=== PATIENT | male | born 1965 | race Caucasian/White ===

== ENCOUNTER 2020-04-06 17:41 | Outpatient (REF) | payer MEDICARE, MEDICAID, SELFPAY ==
[2020-04-06 18:18] LABS: MANUAL DIFF FLAG NO
[2020-04-06 18:38] LABS: Basophils Percent Auto 0.3 % (0-2); Eosinophils Absolute Auto 0.1 X10*3/uL (0.0-0.4); Eosinophils Percent Auto 1.6 % (0-4); Hematocrit 43.2 % (42-52); Hemoglobin 15.1 g/dl (14.0-18.0); Imm Gran Abs Auto 0.02 X10*3/uL (0.00-0.03); Imm Gran Pct Auto 0.3 % (0.0-0.4); Lymphocytes Absolute Auto 2.5 X10*3/uL (1.2-4.9); Lymphocytes Percent Auto 37.4 % (20-40); Mean Corpuscular Hemoglobin 30.8 pg (27.0-33.0); Mean Corpuscular Volume 88.2 fL (80-98); Mean Platelet Volume 10.7 fL (9.4-12.4); Monocytes Absolute Auto 0.5 X10*3/uL (0.1-1.2); Monocytes Percent Auto 7.4 % (2-11); Neutrophils Absolute Auto 3.6 X10*3/uL (2.0-8.3); Platelet Count 214 X10*3/uL (160-400); Red Cell Distribution Width 13.4 % (11.0-16.0); White Blood Count 6.7 X10*3/uL (4.8-10.8)
[2020-04-06 18:47] LABS: Alanine Aminotransferase 84 U/L (0-40); Albumin Level 4.7 g/dL (3.5-5.0); Alkaline Phosphatase 92 U/L (39-117); Anion Gap 13 (12-20); Aspartate Amino Transferase 48 U/L (5-37); Bilirubin Total 0.6 mg/dL (0.0-1.0); Blood Urea Nitrogen 12 mg/dL (9-16); C Reactive Protein 0.24 mg/dL (< or = 0.50); Calcium 9.5 mg/dL (8.4-10.2); Carbon Dioxide 24 mmol/L (22-29); Chloride 105 mmol/L (96-108); Estimated Glomerular Filt Rate > 60; Glucose Random 148 mg/dL (60-115); Potassium 3.8 mmol/l (3.3-5.1); Sodium 138 mmol/L (135-145); Total Protein 7.2 g/dL (6.5-8.0)
[2020-04-06 19:25] LABS: Erythrocyte Sedimentation Rate 2 MM/HR (0-15)
== END 2020-04-06 17:42 | disposition home or self-care (01) ==
LOC: HO.LAB 17:41
PROVIDERS: PCP Internal Medicine; Visit Provider Student in an Organized Health Care Education/Training Program
DX: M45.9 Ankylosing spondylitis of unspecified sites in spine (principal); Z79.899 Other long term (current) drug therapy
CPT/HCPCS: 36415; 80053; 85025; 85652; 86140

== ENCOUNTER → 2020-04-07 12:47 | Outpatient (BNVA) | payer MEDICARE, MEDICAID, SELFPAY | PROVIDERS: PCP Internal Medicine; Referring Provider Internal Medicine; Visit Provider Student in an Organized Health Care Education/Training Program | DX: M46.80 Other specified inflammatory spondylopathies, site unspecified (principal); Z79.899 Other long term (current) drug therapy | CPT/HCPCS: 99212 ==

== ENCOUNTER 2020-05-18 11:08 | Outpatient (REF) | payer MEDICARE, MEDICAID, SELFPAY ==
[2020-05-18 12:16] LABS: MANUAL DIFF FLAG NO
[2020-05-18 12:29] LABS: Basophils Percent Auto 0.4 % (0-2); Eosinophils Absolute Auto 0.1 X10*3/uL (0.0-0.4); Eosinophils Percent Auto 1.3 % (0-4); Hematocrit 42.9 % (42-52); Hemoglobin 14.6 g/dl (14.0-18.0); Imm Gran Abs Auto 0.01 X10*3/uL (0.00-0.03); Imm Gran Pct Auto 0.2 % (0.0-0.4); Lymphocytes Absolute Auto 2.4 X10*3/uL (1.2-4.9); Lymphocytes Percent Auto 44.2 % (20-40); Mean Corpuscular Hemoglobin 30.3 pg (27.0-33.0); Mean Platelet Volume 10.8 fL (9.4-12.4); Monocytes Absolute Auto 0.4 X10*3/uL (0.1-1.2); Neutrophils Absolute Auto 2.5 X10*3/uL (2.0-8.3); Neutrophils Percent Auto 45.9 % (45-73); Platelet Count 207 X10*3/uL (160-400); Red Blood Count 4.82 X10*6/uL (4.60-5.80); Red Cell Distribution Width 12.9 % (11.0-16.0); White Blood Count 5.5 X10*3/uL (4.8-10.8)
[2020-05-18 13:14] LABS: Alanine Aminotransferase 80 U/L (0-40); Albumin Level 4.4 g/dL (3.5-5.0); Alkaline Phosphatase 79 U/L (39-117); Anion Gap 14 (12-20); Aspartate Amino Transferase 53 U/L (5-37); Bilirubin Total 0.8 mg/dL (0.0-1.0); Blood Urea Nitrogen 15 mg/dL (9-16); C Reactive Protein 0.18 mg/dL (< or = 0.50); Calcium 9.4 mg/dL (8.4-10.2); Carbon Dioxide 24 mmol/L (22-29); Chloride 107 mmol/L (96-108); Estimated Glomerular Filt Rate > 60; Glucose Random 116 mg/dL (60-115); Potassium 4.3 mmol/l (3.3-5.1); Sodium 141 mmol/L (135-145); Total Protein 6.8 g/dL (6.5-8.0)
[2020-05-18 13:31] LABS: Erythrocyte Sedimentation Rate 2 MM/HR (0-15)
== END 2020-05-18 11:09 | disposition home or self-care (01) ==
LOC: HO.LAB 11:08
PROVIDERS: PCP Internal Medicine; Visit Provider Student in an Organized Health Care Education/Training Program
DX: M46.80 Other specified inflammatory spondylopathies, site unspecified (principal)
CPT/HCPCS: 36415; 80053; 85025; 85652; 86140

== ENCOUNTER → 2020-10-19 09:26 | Outpatient (BNVA) | payer MEDICARE, MEDICAID, SELFPAY | PROVIDERS: Visit Provider Student in an Organized Health Care Education/Training Program | DX: M46.80 Other specified inflammatory spondylopathies, site unspecified (principal); Z79.899 Other long term (current) drug therapy | CPT/HCPCS: 99212 ==

== ENCOUNTER 2020-10-31 13:34 | Outpatient (REF) | payer MEDICARE, MEDICAID, SELFPAY ==
[2020-10-31 13:55] LABS: MANUAL DIFF FLAG NO
[2020-10-31 14:03] LABS: Basophils Percent Auto 0.3 % (0-2); Eosinophils Absolute Auto 0.1 X10*3/uL (0.0-0.4); Eosinophils Percent Auto 1.9 % (0-4); Hemoglobin 15.1 g/dl (14.0-18.0); Imm Gran Abs Auto 0.01 X10*3/uL (0.00-0.03); Imm Gran Pct Auto 0.2 % (0.0-0.4); Lymphocytes Absolute Auto 2.5 X10*3/uL (1.2-4.9); Lymphocytes Percent Auto 40.3 % (20-40); Mean Corpuscular HGB Conc 33.6 g/dl (31.0-36.0); Mean Corpuscular Hemoglobin 28.7 pg (27.0-33.0); Mean Corpuscular Volume 85.6 fL (80-98); Mean Platelet Volume 10.2 fL (9.4-12.4); Monocytes Absolute Auto 0.5 X10*3/uL (0.1-1.2); Monocytes Percent Auto 7.3 % (2-11); Neutrophils Absolute Auto 3.1 X10*3/uL (2.0-8.3); Platelet Count 198 X10*3/uL (160-400); Red Blood Count 5.26 X10*6/uL (4.60-5.80); Red Cell Distribution Width 12.9 % (11.0-16.0); White Blood Count 6.2 X10*3/uL (4.8-10.8)
[2020-10-31 14:38] LABS: Alanine Aminotransferase 81 U/L (0-40); Albumin Level 4.5 g/dL (3.5-5.0); Alkaline Phosphatase 96 U/L (39-117); Anion Gap 12 (12-20); Aspartate Amino Transferase 62 U/L (5-37); Bilirubin Total 0.7 mg/dL (0.0-1.0); Blood Urea Nitrogen 12 mg/dL (9-16); C Reactive Protein 0.16 mg/dL (< or = 0.50); Calcium 9.8 mg/dL (8.4-10.2); Carbon Dioxide 23 mmol/L (22-29); Chloride 109 mmol/L (96-108); Estimated Glomerular Filt Rate > 60; Glucose Random 112 mg/dL (60-115); Potassium 3.9 mmol/L (3.3-5.1); Sodium 140 mmol/L (135-145); Total Protein 7.2 g/dL (6.5-8.0)
[2020-10-31 14:51] LABS: Erythrocyte Sedimentation Rate 2 MM/HR (0-15)
== END 2020-10-31 13:35 | disposition home or self-care (01) ==
LOC: HO.LAB 13:34
PROVIDERS: PCP Internal Medicine; Visit Provider Student in an Organized Health Care Education/Training Program
DX: M46.80 Other specified inflammatory spondylopathies, site unspecified (principal)
CPT/HCPCS: 36415; 80053; 85025; 85652; 86140

== ENCOUNTER 2020-11-14 10:53 | Outpatient (REF) | payer MEDICARE, MEDICAID, SELFPAY ==
[2020-11-14 12:13] LABS: Alanine Aminotransferase 60 U/L (0-40); Albumin Level 4.2 g/dL (3.5-5.0); Alkaline Phosphatase 108 U/L (39-117); Anion Gap 13 (12-20); Aspartate Amino Transferase 38 U/L (5-37); Bilirubin Total 0.7 mg/dL (0.0-1.0); Blood Urea Nitrogen 15 mg/dL (9-16); Calcium 9.1 mg/dL (8.4-10.2); Carbon Dioxide 22 mmol/L (22-29); Chloride 110 mmol/L (96-108); Cholesterol 176 mg/dL; Estimated Glomerular Filt Rate > 60; Glucose Fasting 208 mg/dL (60-99); HDL Cholesterol 33 mg/dL; LDL Cholesterol Calculated 98 mg/dl; Potassium 3.6 mmol/L (3.3-5.1); Sodium 141 mmol/L (135-145); Total Protein 6.7 g/dL (6.5-8.0); Triglycerides 226 mg/dL
== END 2020-11-14 10:54 | disposition home or self-care (01) ==
LOC: HO.LAB 10:53
PROVIDERS: PCP Internal Medicine; Visit Provider Internal Medicine
DX: I10 Essential (primary) hypertension (principal); E78.5 Hyperlipidemia, unspecified
CPT/HCPCS: 36415; 80053; 80061

== ENCOUNTER 2020-11-24 15:29 | Outpatient (REF) | payer MEDICARE, MEDICAID, SELFPAY | END 2020-11-24 15:30 | disposition home or self-care (01) | LOC: HO.LAB 15:29 | PROVIDERS: PCP Internal Medicine; Visit Provider Internal Medicine | DX: Z20.822 Contact with and (suspected) exposure to COVID-19 (principal) | CPT/HCPCS: C9803; U0003; U0005 ==

== ENCOUNTER 2021-01-04 15:31 | Outpatient (REF) | payer MEDICARE, MEDICAID, SELFPAY ==
--- NOTE | ~2021-01-04 | XR_ITS ---
EXAMINATION: XR ELBOW, RIGHT CLINICAL INFORMATION: Right arm pain. COMPARISON: None TECHNIQUE: AP, lateral, and oblique views of the right elbow. FINDINGS: There is no evidence of acute fracture or dislocation of the right elbow. Joint space is maintained. There is some spurring about the lateral epicondyle consistent with epicondylitis. No definite elbow effusion is appreciated. There is a small olecranon spur. XR/XR elbow RT 2V IMPRESSION: No acute fracture, dislocation, or effusion of the right elbow. Findings consistent with lateral epicondylitis.
== END 2021-01-04 15:32 | disposition home or self-care (01) ==
LOC: HO.XRAY 15:31
PROVIDERS: PCP Internal Medicine; Visit Provider Internal Medicine
DX: M79.601 Pain in right arm (principal)
CPT/HCPCS: 73070

== ENCOUNTER → 2021-01-23 10:05 | Outpatient (BNVA) | payer MEDICARE, MEDICAID, SELFPAY | PROVIDERS: PCP Internal Medicine; Visit Provider Nurse Practitioner Family | DX: M46.80 Other specified inflammatory spondylopathies, site unspecified (principal) | CPT/HCPCS: 99212 ==

== ENCOUNTER 2021-01-26 09:00 | Outpatient (RCR) | payer MEDICARE, MEDICAID, SELFPAY | END 2021-09-05 10:06 | disposition home or self-care (01) | LOC: HO.OT 09:00 | PROVIDERS: PCP Internal Medicine; Visit Provider Internal Medicine | DX: M79.601 Pain in right arm (principal) | CPT/HCPCS: 97110; 97140; 97165 ==

== ENCOUNTER 2021-01-26 10:16 | Outpatient (REF) | payer MEDICARE, MEDICAID, SELFPAY ==
[2021-01-26 11:11] LABS: MANUAL DIFF FLAG NO
[2021-01-26 11:30] LABS: Basophils Percent Auto 0.1 % (0-2); Hematocrit 46.3 % (42-52); Hemoglobin 15.6 g/dl (14.0-18.0); Imm Gran Abs Auto 0.05 X10*3/uL (0.00-0.03); Imm Gran Pct Auto 0.5 % (0.0-0.4); Lymphocytes Absolute Auto 1.9 X10*3/uL (1.2-4.9); Mean Corpuscular HGB Conc 33.7 g/dl (31.0-36.0); Mean Corpuscular Hemoglobin 29.6 pg (27.0-33.0); Mean Corpuscular Volume 87.9 fL (80-98); Mean Platelet Volume 10.6 fL (9.4-12.4); Monocytes Absolute Auto 0.5 X10*3/uL (0.1-1.2); Neutrophils Absolute Auto 7.5 X10*3/uL (2.0-8.3); Neutrophils Percent Auto 75.4 % (45-73); Platelet Count 277 X10*3/uL (160-400); Red Blood Count 5.27 X10*6/uL (4.60-5.80); Red Cell Distribution Width 12.9 % (11.0-16.0); White Blood Count 9.9 X10*3/uL (4.8-10.8)
[2021-01-26 11:33] LABS: Alanine Aminotransferase 67 U/L (0-40); Albumin Level 4.7 g/dL (3.5-5.0); Alkaline Phosphatase 87 U/L (39-117); Anion Gap 14 (12-20); Aspartate Amino Transferase 42 U/L (5-37); Bilirubin Total 0.6 mg/dL (0.0-1.0); Blood Urea Nitrogen 15 mg/dL (9-16); C Reactive Protein 0.29 mg/dL (< or = 0.50); Calcium 10.3 mg/dL (8.4-10.2); Carbon Dioxide 23 mmol/L (22-29); Chloride 108 mmol/L (96-108); Cholesterol 228 mg/dL; Estimated Glomerular Filt Rate > 60; Glucose Fasting 113 mg/dL (60-99); HDL Cholesterol 43 mg/dL; LDL Cholesterol Calculated 168 mg/dl; Potassium 4.2 mmol/L (3.3-5.1); Sodium 141 mmol/L (135-145); Total Protein 7.5 g/dL (6.5-8.0); Triglycerides 88 mg/dL
[2021-01-26 11:55] LABS: PSA,Total (Free>4and<10) 1.42 ng/mL (0.00-4.00)
[2021-01-26 11:58] LABS: HBS Num1 143.95 mIU/mL (0-7.99); HBc Num1 0.06 S/CO (0.00-0.79); HBsAGNum1 0.21 S/CO (0.00-0.99); Hepatitis B Core Antibody Nonreactive (Nonreactive); Hepatitis B Surface Antigen Negative (Negative); ~HepC Num1 0.08 S/CO (0.00-0.79); ~Hepatitis B Surface Antibody REACTIVE (Nonreactive); ~Hepatitis C Antibody Nonreactive (Nonreactive)
[2021-01-26 12:33] LABS: Erythrocyte Sedimentation Rate 10 MM/HR (0-15)
[2021-01-27 04:31] LABS: Hepatitis A Antibody IgM 0.42 Index (0-0.79); ~Hepatitis A Antibody IgM Nonreactive (Nonreactive)
[2021-01-28 23:57] LABS: TS Negative Control Passed; TS Panel A 0; TS Panel B 1; TS Positive Control Passed; TSpotTB Negative (Negative)
[2021-02-03 16:25] LABS: Vitamin D 25-OH, D2 <4 ng/mL; Vitamin D 25-OH, D3 28 ng/mL; Vitamin D 25-OH, Total 28 ng/mL (30-100)
== END 2021-01-26 10:17 | disposition home or self-care (01) ==
LOC: HO.LAB 10:16
PROVIDERS: Absent Provider Internal Medicine; PCP Internal Medicine; Visit Provider Nurse Practitioner Family
DX: Z12.5 Encounter for screening for malignant neoplasm of prostate (principal); Z11.1 Encounter for screening for respiratory tuberculosis; E55.9 Vitamin D deficiency, unspecified; E78.5 Hyperlipidemia, unspecified; E11.9 Type 2 diabetes mellitus without complications; M46.80 Other specified inflammatory spondylopathies, site unspecified
CPT/HCPCS: 36415; 80053; 80061; 82306; 84153; 85025; 85652; 86140; 86481; 86704; 86706; 86709; 86803; 87340

== ENCOUNTER 2021-03-28 11:28 | Outpatient (REF) | payer MEDICARE, MEDICAID, SELFPAY ==
[2021-03-28 12:39] LABS: MANUAL DIFF FLAG NO
[2021-03-28 13:10] LABS: Basophils Percent Auto 0.3 % (0-2); Eosinophils Absolute Auto 0.1 X10*3/uL (0.0-0.4); Eosinophils Percent Auto 1.2 % (0-4); Hematocrit 44.8 % (42.0-52.0); Hemoglobin 15.3 g/dl (14.0-18.0); Imm Gran Abs Auto 0.02 X10*3/uL (0.00-0.03); Imm Gran Pct Auto 0.3 % (0.0-0.4); Mean Corpuscular HGB Conc 34.2 g/dl (31.0-36.0); Mean Corpuscular Hemoglobin 29.8 pg (27.0-33.0); Mean Corpuscular Volume 87.2 fL (80.0-98.0); Mean Platelet Volume 10.2 fL (9.4-12.4); Monocytes Absolute Auto 0.4 X10*3/uL (0.1-1.2); Monocytes Percent Auto 6.3 % (2-11); Neutrophils Absolute Auto 4.3 x10*3/uL (2.0-8.3); Neutrophils Percent Auto 62.9 % (45-73); Platelet Count 219 X10*3/uL (160-400); Red Blood Count 5.14 X10*6/uL (4.60-5.80); Red Cell Distribution Width 12.8 % (11.0-16.0); White Blood Count 6.9 X10*3/uL (4.8-10.8)
[2021-03-28 13:34] LABS: Alanine Aminotransferase 39 U/L (0-40); Albumin Level 4.3 g/dL (3.5-5.0); Alkaline Phosphatase 81 U/L (39-117); Anion Gap 14 (12-20); Aspartate Amino Transferase 29 U/L (5-37); Bilirubin Total 0.8 mg/dL (0.0-1.0); Blood Urea Nitrogen 11 mg/dL (9-16); C Reactive Protein 0.21 mg/dL (< or = 0.50); Calcium 8.9 mg/dL (8.4-10.2); Carbon Dioxide 24 mmol/L (22-29); Chloride 108 mmol/L (96-108); Estimated Glomerular Filt Rate > 60; Glucose Random 149 mg/dL (60-115); Potassium 3.5 mmol/L (3.3-5.1); Sodium 142 mmol/L (135-145); Total Protein 6.6 g/dL (6.5-8.0)
[2021-03-28 14:41] LABS: Erythrocyte Sedimentation Rate 3 MM/HR (0-15)
[2021-03-29 13:22] LABS: Calcium (PTHI) 9.1 mg/dL (8.6-10.3); PTHI 101 pg/mL (14-64)
== END 2021-03-28 11:29 | disposition home or self-care (01) ==
LOC: HO.LAB 11:28
PROVIDERS: PCP Internal Medicine; Visit Provider Nurse Practitioner Family
DX: M46.80 Other specified inflammatory spondylopathies, site unspecified (principal); R94.5 Abnormal results of liver function studies; E83.52 Hypercalcemia
CPT/HCPCS: 36415; 80053; 83970; 85025; 85652; 86140; 99212

== ENCOUNTER 2021-04-20 07:59 | Outpatient (REF) | payer MEDICARE, MEDICAID, SELFPAY ==
--- NOTE | ~2021-04-20 | US_ITS ---
EXAMINATION: US ABDOMEN COMPLETE CLINICAL INFORMATION: Abnormal results for function studies. COMPARISON: Ultrasound abdomen complete 09/23/2014 and 03/04/2014. TECHNIQUE: Real-time imaging of the abdominal viscera. FINDINGS: PANCREAS: Normal. ABDOMINAL AORTA: The proximal, mid, and distal segments are normal in caliber. INFERIOR VENA CAVA: Visualized portions are normal. LIVER: Liver echotexture is increased. The liver size and contour is normal. There is a 5 mm cyst. No other focal hepatic lesion. There is no intrahepatic biliary duct dilatation seen. GALLBLADDER: The gallbladder is normal in size. There are several small echogenic densities in the gallbladder adjacent to the gallbladder wall questionable for an adherent nonshadowing stones versus polyps. The largest measures 2 mm. This does not appear appreciably changed from prior exam September 2014. The gallbladder wall does not appear thickened. There is no pericholecystic fluid. COMMON BILE DUCT: Normal in caliber measuring 0.4 cm in diameter. RIGHT KIDNEY: Normal. No hydronephrosis. No renal calculi or focal parenchymal lesions. The kidney measures 10.9 cm in maximum dimension. LEFT KIDNEY: Normal. No hydronephrosis. No renal calculi or focal parenchymal lesions. The kidney measures 10.2 cm in maximum dimension. SPLEEN: Normal. The spleen measures 9.8 cm in maximum dimension. FREE FLUID: None. US/US abdomen complete IMPRESSION: Echogenic liver. Small liver cyst. Question small gallbladder wall polyps versus adherent nonshadowing gallstones. Findings do not appear appreciably changed from previous exams.
== END 2021-04-20 08:00 | disposition home or self-care (01) ==
LOC: HO.US 07:59
PROVIDERS: PCP Internal Medicine; Visit Provider Nurse Practitioner Family
DX: R94.5 Abnormal results of liver function studies (principal)
CPT/HCPCS: 76700

== ENCOUNTER 2021-11-01 15:19 | Outpatient (REF) | payer MEDICARE, MEDICAID, SELFPAY ==
[2021-11-01 15:33] LABS: MANUAL DIFF FLAG NO
[2021-11-01 15:47] LABS: Basophils Percent Auto 0.3 % (0-2); Eosinophils Absolute Auto 0.1 X10*3/uL (0.0-0.4); Eosinophils Percent Auto 1.5 % (0-4); Hemoglobin 14.9 g/dl (14.0-18.0); Imm Gran Abs Auto 0.02 X10*3/uL (0.00-0.03); Imm Gran Pct Auto 0.3 % (0.0-0.4); Lymphocytes Absolute Auto 2.3 X10*3/uL (1.2-4.9); Lymphocytes Percent Auto 35.1 % (20-40); Mean Corpuscular HGB Conc 33.9 g/dl (31.0-36.0); Mean Corpuscular Hemoglobin 28.7 pg (27.0-33.0); Mean Corpuscular Volume 84.6 fL (80.0-98.0); Mean Platelet Volume 9.9 fL (9.4-12.4); Monocytes Absolute Auto 0.6 X10*3/uL (0.1-1.2); Monocytes Percent Auto 8.4 % (2-11); Neutrophils Absolute Auto 3.6 x10*3/uL (2.0-8.3); Neutrophils Percent Auto 54.4 % (45-73); Platelet Count 228 X10*3/uL (160-400); Red Cell Distribution Width 12.8 % (11.0-16.0); White Blood Count 6.6 X10*3/uL (4.8-10.8)
[2021-11-01 16:00] LABS: Alanine Aminotransferase 52 U/L (0-40); Albumin Level 4.5 g/dL (3.5-5.0); Alkaline Phosphatase 93 U/L (39-117); Anion Gap 12 (12-20); Aspartate Amino Transferase 40 U/L (5-37); Bilirubin Total 0.7 mg/dL (0.0-1.0); Blood Urea Nitrogen 11 mg/dL (9-16); C Reactive Protein 0.33 mg/dL (< or = 0.50); Calcium 9.1 mg/dL (8.4-10.2); Carbon Dioxide 24 mmol/L (22-29); Chloride 110 mmol/L (96-108); Estimated Glomerular Filt Rate > 60; Glucose Random 114 mg/dL (60-115); Potassium 3.7 mmol/L (3.3-5.1); Sodium 142 mmol/L (135-145); Total Protein 7.1 g/dL (6.5-8.0)
[2021-11-01 16:22] LABS: Vitamin D 25-OH Total 18.7 ng/mL (>30)
[2021-11-01 16:46] LABS: Erythrocyte Sedimentation Rate 5 MM/HR (0-15)
== END 2021-11-01 15:20 | disposition home or self-care (01) ==
LOC: HO.LAB 15:19
PROVIDERS: PCP Internal Medicine; Visit Provider Nurse Practitioner Family
DX: M46.80 Other specified inflammatory spondylopathies, site unspecified (principal); R94.5 Abnormal results of liver function studies; E55.9 Vitamin D deficiency, unspecified; E34.9 Endocrine disorder, unspecified
CPT/HCPCS: 36415; 80053; 82306; 85025; 85652; 86140; 99212

== ENCOUNTER 2021-11-13 13:36 | Outpatient (REF) | payer MEDICARE, MEDICAID, SELFPAY ==
--- NOTE | ~2021-11-13 | XR_ITS ---
EXAMINATION: XR SACROILIAC JOINTS CLINICAL INFORMATION: Spondylopathy COMPARISON: Pelvis 12/26/2017. CT pelvis 07/21/2019 TECHNIQUE: 3 views of the sacroiliac joints FINDINGS: Sacroiliac joints are normal. Hip joints are normal. Normal symphysis pubis. No fracture. No focal bone lesion. No soft tissue abnormality. There is degenerative spondylopathy of the lower lumbar spine with small vertebral endplate spurs. XR/XR sacroiliac joint min 3V IMPRESSION: Normal pelvis.
== END 2021-11-13 13:37 | disposition home or self-care (01) ==
LOC: HO.XRAY 13:36
PROVIDERS: PCP Internal Medicine; Visit Provider Nurse Practitioner Family
DX: M46.80 Other specified inflammatory spondylopathies, site unspecified (principal); M53.3 Sacrococcygeal disorders, not elsewhere classified
CPT/HCPCS: 72202

== ENCOUNTER 2022-01-11 09:24 | Outpatient (REF) | payer MEDICARE, MEDICAID, SELFPAY ==
[2022-01-11 11:14] LABS: Alanine Aminotransferase 58 U/L (0-40); Albumin Level 4.5 g/dL (3.5-5.0); Alkaline Phosphatase 99 U/L (39-117); Anion Gap 17 (12-20); Aspartate Amino Transferase 35 U/L (5-37); Bilirubin Total 0.6 mg/dL (0.0-1.0); Blood Urea Nitrogen 13 mg/dL (9-16); Calcium 9.2 mg/dL (8.4-10.2); Carbon Dioxide 23 mmol/L (22-29); Chloride 107 mmol/L (96-108); Cholesterol 223 mg/dL; Estimated Glomerular Filt Rate > 60; Glucose Fasting 117 mg/dL (60-99); HDL Cholesterol 38 mg/dL; LDL Cholesterol Calculated 137 mg/dl; Potassium 3.9 mmol/L (3.3-5.1); Sodium 143 mmol/L (135-145); Total Protein 7.2 g/dL (6.5-8.0); Triglycerides 242 mg/dL
[2022-01-11 11:28] LABS: PSA,Total (Free>4and<10) 2.77 ng/mL (0.00-4.00); Vitamin D 25-OH Total 22.4 ng/mL (>30)
== END 2022-01-11 09:25 | disposition home or self-care (01) ==
LOC: HO.LAB 09:24
PROVIDERS: PCP Internal Medicine; Visit Provider Internal Medicine
DX: Z12.5 Encounter for screening for malignant neoplasm of prostate (principal); I10 Essential (primary) hypertension; E78.5 Hyperlipidemia, unspecified; E55.9 Vitamin D deficiency, unspecified
CPT/HCPCS: 36415; 80053; 80061; 82306; 84153

== ENCOUNTER → 2022-03-07 14:17 | Outpatient (BNVA) | payer MEDICARE, MEDICAID, SELFPAY | PROVIDERS: PCP Internal Medicine; Visit Provider Nurse Practitioner Family | DX: M46.80 Other specified inflammatory spondylopathies, site unspecified (principal); M79.7 Fibromyalgia; R07.9 Chest pain, unspecified; R94.5 Abnormal results of liver function studies; E34.9 Endocrine disorder, unspecified; E55.9 Vitamin D deficiency, unspecified | CPT/HCPCS: Q3014 ==

== ENCOUNTER 2022-04-12 13:12 | Outpatient (REF) | payer MEDICARE, MEDICAID, SELFPAY ==
[2022-04-12 13:52] LABS: MANUAL DIFF FLAG NO
[2022-04-12 14:22] LABS: Basophils Percent Auto 0.3 % (0-2); Eosinophils Absolute Auto 0.1 X10*3/uL (0.0-0.4); Hematocrit 45.7 % (42.0-52.0); Hemoglobin 15.6 g/dl (14.0-18.0); Imm Gran Abs Auto 0.03 X10*3/uL (0.00-0.03); Imm Gran Pct Auto 0.5 % (0.0-0.4); Lymphocytes Absolute Auto 2.6 X10*3/uL (1.2-4.9); Lymphocytes Percent Auto 41.4 % (20-40); Mean Corpuscular HGB Conc 34.1 g/dl (31.0-36.0); Mean Corpuscular Hemoglobin 28.6 pg (27.0-33.0); Mean Corpuscular Volume 83.7 fL (80.0-98.0); Mean Platelet Volume 10.1 fL (9.4-12.4); Monocytes Absolute Auto 0.6 X10*3/uL (0.1-1.2); Monocytes Percent Auto 9.1 % (2-11); Neutrophils Absolute Auto 2.9 x10*3/uL (2.0-8.3); Neutrophils Percent Auto 47.7 % (45-73); Platelet Count 237 X10*3/uL (160-400); Red Blood Count 5.46 X10*6/uL (4.60-5.80); Red Cell Distribution Width 12.7 % (11.0-16.0); White Blood Count 6.2 X10*3/uL (4.8-10.8)
[2022-04-12 15:00] LABS: Erythrocyte Sedimentation Rate 2 MM/HR (0-15)
[2022-04-12 16:04] LABS: Alanine Aminotransferase 95 U/L (0-40); Aspartate Amino Transferase 63 U/L (5-37); C Reactive Protein 0.21 mg/dL (< or = 0.50); Calcium 9.3 mg/dL (8.4-10.2); Estimated Glomerular Filt Rate > 60
[2022-04-13 11:58] LABS: Calcium (PTHI) 9.5 mg/dL (8.6-10.3); PTHI 106 pg/mL (16-77)
== END 2022-04-12 13:13 | disposition home or self-care (01) ==
LOC: HO.LAB 13:12
PROVIDERS: PCP Internal Medicine; Visit Provider Nurse Practitioner Family
DX: M46.80 Other specified inflammatory spondylopathies, site unspecified (principal); E34.9 Endocrine disorder, unspecified; E83.52 Hypercalcemia; Z79.899 Other long term (current) drug therapy
CPT/HCPCS: 36415; 82310; 82565; 83970; 84450; 84460; 85025; 85652; 86140

== ENCOUNTER 2022-05-30 13:11 | Outpatient (REF) | payer OTHER, SELFPAY ==
[2022-05-30 14:59] LABS: Alanine Aminotransferase 134 U/L (0-40); Albumin Level 4.5 g/dL (3.5-5.0); Alkaline Phosphatase 101 U/L (39-117); Anion Gap 15 (12-20); Aspartate Amino Transferase 100 U/L (5-37); Bilirubin Total 1.1 mg/dL (0.0-1.0); Blood Urea Nitrogen 16 mg/dL (9-16); Calcium 9.8 mg/dL (8.4-10.2); Carbon Dioxide 24 mmol/L (22-29); Chloride 108 mmol/L (96-108); Cholesterol 204 mg/dL; Estimated Glomerular Filt Rate > 60; Glucose Fasting 118 mg/dL (60-99); HDL Cholesterol 36 mg/dL; LDL Cholesterol Calculated 137 mg/dl; Sodium 143 mmol/L (135-145); Total Protein 6.9 g/dL (6.5-8.0); Triglycerides 158 mg/dL
[2022-05-30 15:07] LABS: Vitamin D 25-OH Total 21.5 ng/mL (>30)
[2022-05-30 15:11] LABS: Creatinine Urine 256.56 mg/dL; Microalbum/Creatinine Ratio Ur 84.1 ug/mg cr
[2022-05-31 15:39] LABS: PTHI 66 pg/mL (16-77)
== END 2022-05-30 13:12 | disposition home or self-care (01) ==
LOC: HO.LAB 13:11
PROVIDERS: PCP Internal Medicine; Visit Provider Internal Medicine
DX: E78.5 Hyperlipidemia, unspecified (principal); E55.9 Vitamin D deficiency, unspecified; E21.3 Hyperparathyroidism, unspecified; E11.9 Type 2 diabetes mellitus without complications
CPT/HCPCS: 36415; 80053; 80061; 82043; 82306; 83970

== ENCOUNTER → 2022-06-08 12:09 | Outpatient (BNVA) | payer OTHER, SELFPAY | PROVIDERS: PCP Internal Medicine; Visit Provider Nurse Practitioner Family | DX: M46.80 Other specified inflammatory spondylopathies, site unspecified (principal); R94.5 Abnormal results of liver function studies; E55.9 Vitamin D deficiency, unspecified; E34.9 Endocrine disorder, unspecified; M79.7 Fibromyalgia | CPT/HCPCS: 99212 ==

== ENCOUNTER 2022-07-03 15:32 | Emergency (ER) | payer OTHER, SELFPAY ==
--- NOTE | ~2022-07-03 | XR_ITS ---
EXAMINATION: XR LUMBOSACRAL SPINE XR SACRUM AND COCCYX CLINICAL INFORMATION: Fall on buttock COMPARISON: Similar examination to 10/24/2019 TECHNIQUE: Lumbosacral spine 3 views. Sacrum and coccyx 3 views. FINDINGS: Lumbosacral spine: Straightening of the lumbar lordosis with mild retrolisthesis of L3 on L4. No significant disc space narrowing. Marginal osteophytes are present at L2 to through L5. No evidence of spondylolysis or spondylolisthesis. Sacrum and coccyx: The sacroiliac joints are normal in appearance. The sacrum and coccyx are normal in appearance without fracture or dislocation seen. XR/XR lumbar spine 2-3V IMPRESSION: Degenerative changes. No visible fracture or dislocation is seen.
--- NOTE | ~2022-07-03 | XR_ITS ---
EXAMINATION: XR LUMBOSACRAL SPINE XR SACRUM AND COCCYX CLINICAL INFORMATION: Fall on buttock COMPARISON: Similar examination to 10/24/2019 TECHNIQUE: Lumbosacral spine 3 views. Sacrum and coccyx 3 views. FINDINGS: Lumbosacral spine: Straightening of the lumbar lordosis with mild retrolisthesis of L3 on L4. No significant disc space narrowing. Marginal osteophytes are present at L2 to through L5. No evidence of spondylolysis or spondylolisthesis. Sacrum and coccyx: The sacroiliac joints are normal in appearance. The sacrum and coccyx are normal in appearance without fracture or dislocation seen. XR/XR sacrum coccyx min 2V IMPRESSION: Degenerative changes. No visible fracture or dislocation is seen.
[2022-07-03 15:50] VITALS: BP 198/117; PULSE 94; RESP 20; TEMP 36.8; O2SAT 96; BMI 27.4
--- NOTE | 2022-07-03 15:50 | ED_ITS ---
HPI - Back Pain/Injury General Chief Complaint: Fall <BAKARI Wu - Last Filed: 07/03/22 15:57> Stated Complaint: fell/ hurt back <BAKARI Wu - Last Filed: 07/03/22 15:57> Time Seen by Provider: 07/03/22 17:03 <BAKARI Wu - Last Filed: 07/03/22 15:57> Source: patient <Yeimi Alcazar MD - Last Filed: 07/03/22 19:23> Mode of arrival: ambulatory <Yeimi Alcazar MD - Last Filed: 07/03/22 19:23> History of Present Illness HPI Narrative: 57-year-old male presents with sacral coccyx pain after he slipped and fell in his stairs without head strike or loss of consciousness. Patient denies any numbness/tingling/weakness into either lower extremity and denies any bowel or bladder dysfunction and denies any fever or chills. He has tried Tylenol but states he is still having quite a bit of pain. <Yeimi Alcazar MD - Last Filed: 07/03/22 19:23> Related Data Home Medications: Previous Rx's Medication Instructions Recorded blood sugar diagnostic (FreeStyle #50 ea 11/14/20 Test strips) diclofenac sodium 1 % topical gel 2 g topical TID PRN pain #100 grams 01/04/21 (Arthritis Pain (diclofenac)) lancets 28 gauge (FreeStyle #100 ea 03/28/21 Lancets) etanercept 50 mg/mL (1 mL) 50 mg subcut QWEEK #4 mL 04/27/22 subcutaneous cartridge (Enbrel Mini) atorvastatin 20 mg tablet 20 mg PO BEDTIME 90 days #90 tabs 06/08/22 baclofen 10 mg tablet 10 mg PO BID #60 tabs 06/08/22 cholecalciferol (vitamin D3) 25 50 mcg PO DAILY #180 caps 06/08/22 mcg (1,000 unit) capsule metformin 500 mg tablet 500 mg PO DAILY 90 days #90 tabs 06/08/22 nabumetone 750 mg tablet 750 mg PO BID #60 tabs 06/08/22 sumatriptan succinate 25 mg tablet 25 mg PO ONCE PRN migraine 06/08/22 headache 30 days #9 tabs lisinopril 40 mg tablet 40 mg PO DAILY 90 days #90 tabs 06/11/22 <BAKARI Wu - Last Filed: 07/03/22 15:57> Allergies/Adverse Reactions: Allergies Allergy/AdvReac Type Severity Reaction Status Date / Time celecoxib [From CELEBREX] Allergy Mild HIVES,ITCHI Verified 06/08/22 12:30 NG,RASH <BAKARI Wu - Last Filed: 07/03/22 15:57> Review of Systems Review of Systems: Pertinent positives and negatives as stated in HPI <Yeimi Alcazar MD - Last Filed: 07/03/22 19:23> PMFSH Past Medical History Source: nursing notes reviewed <Yeimi Alcazar MD - Last Filed: 07/03/22 19:23> Medical History: Medical History Depression Diabetes mellitus Erectile dysfunction Essential hypertension Hypovitaminosis D Migraines 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 Right arm pain <BAKARI Wu - Last Filed: 07/03/22 15:57> Surgical History: Surgical History History of appendectomy History of arthroscopy of left shoulder History of carpal tunnel release History of eye surgery History of hand surgery History of nasal surgery History of orthopedic surgery <BAKARI Wu - Last Filed: 07/03/22 15:57> Family History Family History: Family History Father Stroke Mother Hypertension Arthritis Osteoporosis Depression with anxiety Brother Cognitive developmental delay Psychiatric problem Mental health disorder <BAKARI Wu - Last Filed: 07/03/22 15:57> Social History Social History: Social History Housing: House Alcohol intake: former Patient Tobacco Use Status: Former Tobacco user Tobacco use type: Cigarette Cigarettes Per Day: 20 Years Smoked: 20 e-Cigarette/Vaping Use: Never Used Second Hand Smoke Exposure: No Advance Directives: No Advance Directives Information Provided: No service: No Current occupational status: retired Cognitive needs: No Hearing needs: No Vision needs: Yes (Glasses) <BAKARI Wu - Last Filed: 07/03/22 15:57> Physical Exam Vital Signs: Vital Signs: Last Vital Signs Temp 97.7 F 07/03/22 18:45 Pulse 66 07/03/22 18:45 Resp 20 07/03/22 18:45 BP 166/87 H 07/03/22 18:45 Pulse Ox 94 07/03/22 18:45 O2 Del Method 07/03/22 18:45 BMI result Body Mass Index 27.4 <BAKARI Wu - Last Filed: 07/03/22 15:57> Vital Signs: Last Vital Signs Temp 97.7 F 07/03/22 18:45 Pulse 66 07/03/22 18:45 Resp 20 07/03/22 18:45 BP 166/87 H 07/03/22 18:45 Pulse Ox 94 07/03/22 18:45 O2 Del Method 07/03/22 18:45 BMI result Body Mass Index 27.4 VITAL SIGNS: Reviewed. GENERAL: Well developed, well nourished, in no acute distress. HEAD: Normocephalic/atraumatic EYES: PERRLA, EOMI OROPHARYNX: no oral lesions noted, posterior pharynx clear NECK: Supple, no adenopathy, no midline cervical spine tenderness LUNGS: Normal breath sounds. No adventitious sounds or accessory muscle use. SpO2<94> CARDIOVASCULAR: Regular rate and rhythm without noted murmurs ABDOMEN: Soft, non-tender, non-distended with bowel sounds. BACK: No midline vertebral tenderness, however there is mild tenderness to palpation at the superior aspect of the gluteal cleft without obvious ecchymosis MUSCULOSKELETAL: No tenderness, deformities, or effusions noted on gross inspection. EXTREMITIES: No cyanosis, clubbing or edema. SKIN: Inspection of the skin reveals no rashes NEUROLOGIC: Alert and oriented x 4. Strength and sensation to light touch were grossly intact x 4. <Yeimi Alcazar MD - Last Filed: 07/03/22 19:23> Course Course Course Narrative: RME--57yo M w/PMHx HLD, hyperparathyroid, DM, Depression, HTN, c/o low back and buttock pain s/p mechanical slip and fall down 4 stairs at home. denies sx prior to fall. denies incontinence/retention HTNsive in triage likely from pain, ambulating with limping gait, unable to sit. +lumbar and coccyx ttp noted on exam and bilateral lumbar MSK spasming XRs ordered <BAKARI Wu - Last Filed: 07/03/22 15:57> Medical Decision Making Medical Decision Making MDM Narrative: 57-year-old male with slip and fall and contusion to lower back without concerns for fracture and no radicular symptoms. I reviewed all imaging studies and my interpretation is this is a contusion of the sacral coccyx area and was treated with combination analgesics as well as lidocaine patch. Patient stated he had previously tolerated ibuprofen/Motrin without difficulty although he does describe celecoxib as an allergic reaction. He is otherwise discharged home in stable condition. <Yeimi Alcazar MD - Last Filed: 07/03/22 19:23> Differential Diagnosis Please see the discussion above <Yeimi Alcazar MD - Last Filed: 07/03/22 19:23> Radiology Impression Radiologist Impression: My interpretation is in agreement with radiology's impression of the imaging studies. <Yeimi Alcazar MD - Last Filed: 07/03/22 19:23> External Record Review External record reviewed: Outpatient record and Prior outpatient labs <Yeimi Alcazar MD - Last Filed: 07/03/22 19:23> Chronic Conditions Patient?s care impacted by: Hypertension <Yeimi Alcazar MD - Last Filed: 07/03/22 19:23> Critical Care Time Critical Care Time Critical Care Time: Yes <Yeimi Alcazar MD - Last Filed: 07/03/22 19:23> Total Critical Care Time: 30 <Yeimi Alcazar MD - Last Filed: 07/03/22 19:23> Attestation: I personally attest to this time spent taking care of the patient. <Yeimi Alcazar MD - Last Filed: 07/03/22 19:23> Discharge Plan Discharge Clinical Impression: Fall, Coccyx contusion <BAKARI Wu - Last Filed: 07/03/22 15:57> Patient Disposition: Home, Self-Care <BAKARI Wu - Last Filed: 07/03/22 15:57> Instructions: Contusion in Adults (ED), Fall Prevention (ED) <BAKARI Wu - Last Filed: 07/03/22 15:57> Additional Instructions: 1. Tylenol 1000 mg, orally, every 6 hours as needed for pain control. Do not exceed 4000 mg within 24 hours. 2. Ibuprofen 400 mg, orally with milk or food, every 6 hours as needed for pain control. Please take this medication with Tylenol for improved symptom relief. 3. Lidocaine patch, apply to area of maximal tenderness as directed on the outside packaging. 4. Please follow-up with primary care provider in the next 1-2 days for re- evaluation further outpatient management. Return to the ER for any worsening symptoms. <BAKARI Wu - Last Filed: 07/03/22 15:57> Prescriptions: No Action (DME) FreeStyle Test Strip See Rx Instructions .ROUTE .MEDSUPPLY Qty: 50 11RF Rx Instructions: used 1 test strip once a day Enbrel Mini 50 mg/mL (1 mL) cartridge 50 mg subcut QWEEK Qty: 4 2RF metformin 500 mg tablet 500 mg PO DAILY 90 Days Qty: 90 2RF sumatriptan succinate 25 mg tablet 25 mg PO ONCE PRN (Reason: migraine headache) 30 Days Qty: 9 6RF atorvastatin 20 mg tablet 20 mg PO BEDTIME 90 Days Qty: 90 1RF baclofen 10 mg tablet 10 mg PO BID Qty: 60 2RF cholecalciferol (vitamin D3) 25 mcg (1,000 unit) capsule 50 mcg PO DAILY Qty: 180 0RF nabumetone 750 mg tablet 750 mg PO BID Qty: 60 1RF lisinopril 40 mg tablet 40 mg PO DAILY 90 Days Qty: 90 1RF diclofenac sodium [Arthritis Pain (diclofenac)] 1 % gel 2 g topical TID PRN (Reason: pain) Qty: 100 0RF Rx Instructions: apply to single elbow, wrist or hand; for hand includes palm/fingers/back of hand (DME) lancets [FreeStyle Lancets] 28 gauge misc See Rx Instructions .ROUTE .MEDSUPPLY Qty: 100 11RF Rx Instructions: use 1 lancet once a day <BAKARI Wu - Last Filed: 07/03/22 15:57> Referrals: Linda Hidalgo MD [Primary Care Provider] - <BAKARI Wu - Last Filed: 07/03/22 15:57>
[2022-07-03 18:45] VITALS: BP 166/87; PULSE 66; RESP 20; TEMP 36.5; O2SAT 94
--- NOTE | 2022-07-03 19:47 | PC.NURSE ---
Assess and discharged by provider, This Rn printed and reviewed discharge instructions with patients, patient verbalized understanding. No sign of distress at discharge.
== END 2022-07-03 19:54 | disposition home or self-care (01) ==
PROVIDERS: Emergency Provider Student in an Organized Health Care Education/Training Program; PCP Internal Medicine
DX: S30.0XXA Contusion of lower back and pelvis, initial encounter (principal); M54.50 Low back pain, unspecified; W01.0XXA Fall on same level from slipping, tripping and stumbling without subsequent striking against object, initial encounter; Y93.9 Activity, unspecified; Y92.9 Unspecified place or not applicable; Y99.9 Unspecified external cause status
CPT/HCPCS: 72100; 72220; 99283

== ENCOUNTER 2022-07-05 10:00 | Outpatient (RCR) | payer OTHER, SELFPAY ==
[2022-05-30 10:09] VITALS: BP 120/70
--- NOTE | 2022-05-30 16:17 | MHC.PT.EP ---
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 Pt is deemed an appropriate candidate to receive skilled PT services to address their physical impairments in order to improve their functional ability. Frequency and Duration: The patient will be seen 2 x / wk x 5 wks Short Term Goals: Initiate home program. Pt will be resolved of his referred L shoulder pain. Intermediate Goals: I with home program. Pt will reports at most My sleep is slightly disturbed for less than 1 hour on NDI outcome measure. NDI outcome measure improved by at least 9 points in order to demonstrate improved function. Cervical rotation L improved to at least 85% of ROM in pain free range; initial: 50% with significant pain. Treatment Plan: Modalities to reduce pain, spasms and effusion. Manual therapy to restore motion and function. Therapeutic exercise to improve strength and flexibility. Neuromuscular re-education for posture and balance. Therapeutic activities to return to functional activities of daily living. Electronically signed by: Salomón Herr PT. Please sign and return to therapist. Thank you for your referral.
--- NOTE | 2022-07-05 17:22 | MHC.PT.DC ---
[facility] [place] Office [place] Office [place] Office [address] [place] [address] [phone] F: [phone] F: [phone] F: [phone] F: [phone] Physical Therapy Discharge Report Diagnosis: Cervical pain Date of Surgery: Date of Evaluation: 05/30/22 Date of Discharge: 07/05/22 Treatments to Date: 7 Cancellations to Date: No Shows to Date: Discharge Status: Improved Function Independent with HEP Recommend MD Follow-up Discharge Summary: Ry has been an active participant in his therapy in and out of the clinic. He has made improvements in his ROM and tolerance however he persists with cervical pain on his R with painful end range rotation B. he is recommended for follow up re. persisting Sx. Electronically signed by: Salomón Herr PT. Please sign and return to therapist. Thank you for your referral.
== END 2022-07-05 17:25 | disposition home or self-care (01) ==
LOC: HO.PTCHIC 10:00
PROVIDERS: PCP Internal Medicine; Visit Provider Internal Medicine
DX: M54.2 Cervicalgia (principal)
CPT/HCPCS: 97014; 97110; 97140; 97161

== ENCOUNTER 2022-08-06 10:45 | Outpatient (REF) | payer OTHER, SELFPAY ==
[2022-08-09 19:59] LABS: Calcium, 24 Hr Urine 459 mg/24 h; Calcium/Creatinine Ratio 293 mg/g creat (30-210); Creatinine 24Hr Urine 1.56 g/24 h (0.50-2.15)
== END 2022-08-06 10:46 | disposition home or self-care (01) ==
LOC: HO.LNP 10:45
PROVIDERS: Visit Provider Internal Medicine
DX: E21.3 Hyperparathyroidism, unspecified (principal)
CPT/HCPCS: 82340

== ENCOUNTER 2022-08-06 12:57 | Outpatient (REF) | payer OTHER, SELFPAY ==
[2022-08-06 14:05] LABS: MANUAL DIFF FLAG NO
[2022-08-06 14:27] LABS: Basophils Percent Auto 0.6 % (0-2); Eosinophils Absolute Auto 0.1 X10*3/uL (0.0-0.4); Eosinophils Percent Auto 1.2 % (0-4); Hematocrit 45.3 % (42.0-52.0); Hemoglobin 15.5 g/dl (14.0-18.0); Imm Gran Abs Auto 0.02 X10*3/uL (0.00-0.03); Imm Gran Pct Auto 0.3 % (0.0-0.4); Lymphocytes Absolute Auto 3.2 X10*3/uL (1.2-4.9); Lymphocytes Percent Auto 46.6 % (20-40); Mean Corpuscular HGB Conc 34.2 g/dl (31.0-36.0); Mean Corpuscular Volume 84.7 fL (80.0-98.0); Mean Platelet Volume 10.5 fL (9.4-12.4); Monocytes Absolute Auto 0.5 X10*3/uL (0.1-1.2); Neutrophils Absolute Auto 2.9 x10*3/uL (2.0-8.3); Neutrophils Percent Auto 43.3 % (45-73); Platelet Count 269 X10*3/uL (160-400); Red Blood Count 5.35 X10*6/uL (4.60-5.80); Red Cell Distribution Width 12.4 % (11.0-16.0); White Blood Count 6.8 X10*3/uL (4.8-10.8)
[2022-08-06 14:49] LABS: Alanine Aminotransferase 100 U/L (0-40); Albumin Level 4.5 g/dL (3.5-5.0); Alkaline Phosphatase 107 U/L (39-117); Anion Gap 11 (12-20); Aspartate Amino Transferase 71 U/L (5-37); Bilirubin Total 0.9 mg/dL (0.0-1.0); Blood Urea Nitrogen 11 mg/dL (9-16); C Reactive Protein 0.47 mg/dL (< or = 0.50); Calcium 9.4 mg/dL (8.4-10.2); Carbon Dioxide 27 mmol/L (22-29); Chloride 107 mmol/L (96-108); Cholesterol 193 mg/dL; Estimated Glomerular Filt Rate > 60; Glucose Fasting 107 mg/dL (60-99); Glucose Random 105 mg/dL (60-115); HDL Cholesterol 35 mg/dL; LDL Cholesterol Calculated 129 mg/dl; Potassium 4.2 mmol/L (3.3-5.1); Sodium 141 mmol/L (135-145); Triglycerides 148 mg/dL
[2022-08-06 14:56] LABS: Creatinine Urine 190.85 mg/dL; Microalbum/Creatinine Ratio Ur 124.1 ug/mg cr
[2022-08-06 15:04] LABS: Folate 16.4 ng/mL (> or = 4.0); Vitamin B12 381 pg/mL (200-900); Vitamin D 25-OH Total 30.6 ng/mL (>30)
[2022-08-06 15:23] LABS: Erythrocyte Sedimentation Rate 8 MM/HR (0-15)
== END 2022-08-06 12:58 | disposition home or self-care (01) ==
LOC: HO.HMGCLDS 12:57
PROVIDERS: PCP Internal Medicine; Visit Provider Nurse Practitioner Family
DX: E53.8 Deficiency of other specified B group vitamins (principal); E55.9 Vitamin D deficiency, unspecified; E11.9 Type 2 diabetes mellitus without complications; M46.80 Other specified inflammatory spondylopathies, site unspecified; E78.5 Hyperlipidemia, unspecified
CPT/HCPCS: 36415; 80053; 80061; 82043; 82306; 82607; 82746; 85025; 85652; 86140

== ENCOUNTER 2022-09-11 09:00 | Outpatient (RCR) | payer OTHER, SELFPAY ==
--- NOTE | 2022-08-06 17:01 | MHC.PT.EP ---
[facility] [place] Office [place] Office [place] Office [address] [place] [address] [phone] F: [phone] F: [phone] F: [phone] F: [phone] Physical Therapy Plan of Care Date of Evaluation: Date of Surgery: Diagnosis: LBP. Assessment: Pt is a 57 y/o male referred to PT for eval and treat of LBP which results in decreased tolerance for sitting, walking, standing, performing HH chores and lifting objects of weight secondary to repeated mechanical falls, decreased core and hip strength, decreased bed mobility, gait abnormality, pelvic asymmetry, and pain. Pt is deemed an appropriate candidate to receive skilled PT services to address their physical impairments in order to improve their functional ability. Frequency and Duration: The patient will be seen 2 x / wk x 5 wks. Short Term Goals: Initiate HEP. Improve baseline pain to at most 3-5/10; initial: 6-8/10. Penitentiary Goals: I with home program. Improve core strength from fair + to at least good +. Improve hip abd MMT B by at least 1/2 MMT grade. Improve Jade outcome by at least 11% in order to demonstrate improved function. Pt woll be able to sit > 1 hour with managed Sx; initial: 10 min. Treatment Plan: Modalities to reduce pain, spasms and effusion. Manual therapy to restore motion and function. Therapeutic exercise to improve strength and flexibility. Neuromuscular re-education for posture and balance. Therapeutic activities to return to functional activities of daily living. Electronically signed by: Salomón Herr PT Please sign and return to therapist. Thank you for your referral.
--- NOTE | 2022-11-21 14:00 | MHC.PT.DC ---
[facility] [place] Office [place] Office [place] Office [address] [place] [address] [facility] [phone] F: [phone] F: [phone] F: [phone] F: [phone] Physical Therapy Discharge Report Diagnosis: LBP. Date of Surgery: Date of Evaluation: 08/06/22 Date of Discharge: 11/21/22 Treatments to Date: 6 Cancellations to Date: No Shows to Date: Discharge Status: Patient Elected to Stop Discharge Summary: Electronically signed by: Salomón Herr PT. Please sign and return to therapist. Thank you for your referral.
== END 2022-11-21 14:00 | disposition home or self-care (01) ==
LOC: HO.PTCHIC 09:00
PROVIDERS: PCP Internal Medicine; Visit Provider Internal Medicine
DX: M54.50 Low back pain, unspecified (principal)
CPT/HCPCS: 97014; 97110; 97140; 97161

== ENCOUNTER → 2022-09-19 15:59 | Outpatient (BNVA) | payer OTHER, SELFPAY | PROVIDERS: PCP Internal Medicine; Visit Provider Nurse Practitioner Family | DX: M46.80 Other specified inflammatory spondylopathies, site unspecified (principal); R94.5 Abnormal results of liver function studies; M79.7 Fibromyalgia; E55.9 Vitamin D deficiency, unspecified; E34.9 Endocrine disorder, unspecified | CPT/HCPCS: 99212 ==

== ENCOUNTER 2022-10-29 14:26 | Outpatient (REF) | payer OTHER, SELFPAY ==
[2022-10-29 15:20] LABS: MANUAL DIFF FLAG NO
[2022-10-29 15:36] LABS: Basophils Percent Auto 0.3 % (0-2); Eosinophils Absolute Auto 0.1 X10*3/uL (0.0-0.4); Eosinophils Percent Auto 1.5 % (0-4); Hematocrit 45.4 % (42.0-52.0); Imm Gran Abs Auto 0.01 X10*3/uL (0.00-0.03); Imm Gran Pct Auto 0.1 % (0.0-0.4); Lymphocytes Absolute Auto 2.2 X10*3/uL (1.2-4.9); Lymphocytes Percent Auto 32.4 % (20-40); Mean Corpuscular HGB Conc 35.2 g/dl (31.0-36.0); Mean Platelet Volume 10.3 fL (9.4-12.4); Monocytes Absolute Auto 0.5 X10*3/uL (0.1-1.2); Monocytes Percent Auto 6.9 % (2-11); Neutrophils Percent Auto 58.8 % (45-73); Platelet Count 222 X10*3/uL (160-400); Red Blood Count 5.34 X10*6/uL (4.60-5.80); Red Cell Distribution Width 12.9 % (11.0-16.0); White Blood Count 6.8 X10*3/uL (4.8-10.8)
[2022-10-29 15:43] LABS: Prothrombin Time 11.7 SEC (10.0-13.1)
[2022-10-29 16:17] LABS: Alanine Aminotransferase 85 U/L (0-40); Albumin Level 4.5 g/dL (3.5-5.0); Alkaline Phosphatase 96 U/L (39-117); Anion Gap 13 (12-20); Aspartate Amino Transferase 65 U/L (5-37); Bilirubin Direct 0.2 mg/dL (0.0-0.5); Bilirubin Total 1.2 mg/dL (0.0-1.0); Blood Urea Nitrogen 12 mg/dL (9-16); C Reactive Protein 0.53 mg/dL (< or = 0.50); Calcium 10.1 mg/dL (8.4-10.2); Carbon Dioxide 24 mmol/L (22-29); Chloride 107 mmol/L (96-108); Estimated Glomerular Filt Rate > 60; Glucose Random 147 mg/dL (60-115); Potassium 3.4 mmol/L (3.3-5.1); Sodium 141 mmol/L (135-145); Total Protein 7.4 g/dL (6.5-8.0)
[2022-10-29 16:28] LABS: Erythrocyte Sedimentation Rate 4 MM/HR (0-15)
[2022-10-29 16:33] LABS: Ferritin 467 ng/mL (20-250)
[2022-10-31 04:59] LABS: HBS Num1 116.15 mIU/mL (0-7.99); HBc Num1 0.06 S/CO (0.00-0.79); HBsAGNum1 0.39 S/CO (0.00-0.99); Hepatitis A Antibody IgM 0.47 Index (0-0.79); Hepatitis B Core Antibody Nonreactive (Nonreactive); Hepatitis B Surface Antigen Negative (Negative); ~HepC Num1 0.09 S/CO (0.00-0.79); ~Hepatitis A Antibody IgM Nonreactive (Nonreactive); ~Hepatitis B Surface Antibody REACTIVE (Nonreactive); ~Hepatitis C Antibody Nonreactive (Nonreactive)
[2022-10-31 18:18] LABS: Anti Nuclear Antibody Screen NEGATIVE (NEGATIVE)
[2022-10-31 19:33] LABS: Immunoglobulin A 233 mg/dL (47-310); Immunoglobulin G 993 mg/dL (600-1640)
[2022-10-31 23:29] LABS: TS Negative Control Passed; TS Panel A 0; TS Panel B 3; TS Positive Control Passed; TSpotTB Negative (Negative)
[2022-11-01 19:28] LABS: Transglutaminase IgA <1.0 U/mL
[2022-11-01 23:29] LABS: Liver Kidney Microsomal Ab <=20.0 U (<=20.0)
[2022-11-02 23:09] LABS: Smooth Muscle Antibody <20 U (<20)
== END 2022-10-29 14:27 | disposition home or self-care (01) ==
LOC: HO.LAB 14:26
PROVIDERS: Absent Provider Nurse Practitioner Family; PCP Internal Medicine; Visit Provider Internal Medicine
DX: R74.01 Elevation of levels of liver transaminase levels (principal); R74.8 Abnormal levels of other serum enzymes; M46.80 Other specified inflammatory spondylopathies, site unspecified
CPT/HCPCS: 36415; 80053; 80076; 80321; 82248; 82728; 82784; 85025; 85610; 85652; 86015; 86038; 86140; 86364; 86376; 86481; 86704; 86706; 86709; 86803; 87340; 99202

== ENCOUNTER → 2022-11-05 14:33 | Outpatient (BNVA) | payer OTHER, SELFPAY | PROVIDERS: PCP Internal Medicine; Visit Provider Internal Medicine Rheumatology | DX: M79.7 Fibromyalgia (principal); M06.00 Rheumatoid arthritis without rheumatoid factor, unspecified site; R74.8 Abnormal levels of other serum enzymes | CPT/HCPCS: 99212 ==

== ENCOUNTER 2022-12-17 08:05 | Outpatient (AMB) | payer OTHER, SELFPAY ==
[2022-12-17 08:18] VITALS: BP 136/78; PULSE 71; O2SAT 98; BMI 31.2
--- NOTE | 2022-12-17 08:18 | MHC.PC.OV ---
Vital Signs 12/17/22 08:18 Height 5 ft Weight 160 lb BMI 31.2 BP 136/78 Blood Pressure Location Lt brachial Position Sitting Pulse 71 Pulse Source Pulse Oximeter Pulse Oximetry (%) 98 Oxygen Delivery Method Room Air Intake Visit Reasons: dm Driveway Sealer Required: No Accompanied by: Self / Same As Patient Allergies celecoxib [From CELEBREX] Allergy (Mild, Verified 12/17/22 08:29) HIVES,ITCHING,RASH Medication List - Last Reconciled 12/17/22 by Linda Arambula MD amlodipine 10 mg PO DAILY 90 days atorvastatin 20 mg PO BEDTIME 90 days baclofen 10 mg PO BID blood pressure monitor As directed blood sugar diagnostic (FreeStyle Test strips) used 1 test strip once a day blood sugar diagnostic (FreeStyle Lite Strips) use one strip once a day as directed blood-glucose meter (FreeStyle Lite Meter kit) use once a day as directed cholecalciferol (vitamin D3) 50 mcg (2 x 25 mcg (1,000 unit)) PO DAILY diclofenac sodium 1% (Arthritis Pain (diclofenac)) 2 grams topical TID PRN lancets (FreeStyle Lancets) use 1 lancet once a day lidocaine 5% 1 patch topical DAILY PRN 30 days lisinopril 40 mg PO DAILY 90 days metformin 500 mg PO DAILY 90 days nabumetone 750 mg PO ONCE sumatriptan succinate 25 mg PO ONCE PRN 30 days Tobacco use date assessed: 07/18/22 Dental Screening Dental Screen Date: 12/17/22 Did you have a dental visit in the last 12 months?: No Did you have a dental problem in the last 6 months where you did not have access to dental care?: No Was dental information given to patient?: No HPI HPI Comments History of Present Illness Details This is a 57-year-old male with diabetes mellitus type 2, hypertension, moderate recurrent major depression and serum negative rheumatoid arthritis comes today complaining of chest pain located in the left side of chest happens at rest and with minimal exertion. He has had 4-6 episodes of chest pain within the past 4 months. No associated symptoms. No radiation. Last a few minutes and resolve on its own. A1c within goal. Blood pressure stable. Depression stable with counseling. Rheumatoid arthritis is follow by Rheumatology and Enbrel has not been approved by insurance. [facility] Medical History Depression Diabetes mellitus Erectile dysfunction Essential hypertension Hypovitaminosis D Migraines 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 Right arm pain Surgical History History of appendectomy History of arthroscopy of left shoulder History of carpal tunnel release History of eye surgery History of hand surgery History of nasal surgery History of orthopedic surgery Hx of colonoscopy Family History Father Stroke Mother Hypertension Arthritis Osteoporosis Depression with anxiety Brother Cognitive developmental delay Psychiatric problem Mental health disorder Social History Housing: House Alcohol intake: former Patient Tobacco Use Status: Former Tobacco user Tobacco use type: Cigarette Cigarettes Per Day: 20 Years Smoked: 20 e-Cigarette/Vaping Use: Never Used Second Hand Smoke Exposure: No service: No Current occupational status: retired Cognitive needs: No Hearing needs: No Vision needs: Yes (Glasses) Questionnaire PHQ-9 Over the last 2 weeks, how often have you been bothered by any of the following problems? 1. Little interest or pleasure in doing things: several days 2. Feeling down, depressed, or hopeless: several days 3. Trouble falling or staying asleep, or sleeping too much: several days 4. Feeling tired or having little energy: several days 5. Poor appetite or overeating: several days 6. Feeling bad about yourself - or that you are a failure or have let yourself or your family down: several days 7. Trouble concentrating on things, such as reading the newspaper or watching television: several days 8. Moving or speaking so slowly that other people could have noticed. Or the opposite - being so fidgety or restless that you have been moving around a lot more than usual: several days 9. Thoughts that you would be better off or of hurting yourself in some way: several days Total score: 9 Depression Screening Interpretation: Positive (no suicidal thoughts) Depression Screening Follow-up: Existing condition and Community Mental Health Worker F/U [id number] - PHQ-9 Billing: Yes Source: Developed by Drs. Toy L. JohnnieTatianna teixeira Kurt Kroenke and colleagues, with an educational lissette from [employer]. Thrive Questionnaire Date Thrive assessed: 07/18/22 AUDIT C Alcohol Use Questionnaire (AUDIT-C) 1. How often do you have a drink containing alcohol?: Never Total Score: 0 JANETH-7 AMB Questionnaire JANETH-7 Date JANETH - 7 assessed: 07/18/22 Source: Developed by Tatianna Hurst Kurt Kroenke and colleagues, with an educational lissette from [employer]. Review of Systems Const All systems reviewed & are unremarkable except as noted in HPI and below Eyes Reports no additional complaints, Denies change in vision and Denies other visual disturbances Card Reports chest pain at rest, Reports chest pain with activity, Denies edema, Denies irregular heart rhythm, Denies claudication, Denies dyspnea, Denies dyspnea on exertion, Denies orthopnea, Denies paroxysmal nocturnal dyspnea and Denies slow heart rate Resp Denies cough, Denies dyspnea and Denies dyspnea on exertion GI Denies abdominal pain, Denies change in bowel habits, Denies excessive flatus, Denies nausea and Denies vomiting Denies urinary hesitancy, Denies urinary incontinence and Denies urinary urgency Musc Denies abnormal gait, Reports back pain, Denies atrophy, Denies deformity, Reports arthralgias and Denies limited range of motion Skin/Breast Denies bleeding lesions, Denies changing lesions and Denies rash Neuro Denies abnormal gait and Denies lack of coordination Physical exam (Primary Care) Vital Signs: Last Vital Signs Pulse 71 12/17/22 08:18 BP 136/78 12/17/22 08:18 Pulse Ox 98 12/17/22 08:18 Oxygen Delivery Method Room Air 12/17/22 08:18 BMI result Body Mass Index 31.2 Tobacco/Smoking Status: Tobacco use Status Tobacco use date assessed 07/18/22 12/17/22 08:19 Patient Tobacco Use Status Former Tobacco user 12/17/22 08:19 Tobacco use type Cigarette 12/17/22 08:19 e-Cigarette/Vaping Use Never Used 12/17/22 08:19 PHQ-9: PHQ-9 Score PHQ-9: Total score 9 12/17/22 08:31 Depression Screening Interpretation: Positive (no suicidal thoughts) Depression Screening Follow-up: Existing condition and Community Mental Health Worker F/U Thrive Assessment: Date of Thrive Assessment Date Thrive assessed 07/18/22 12/17/22 08:19 Eyes General: appearance normal, both eyes and all related structures Eyelids: Yes eyelids normal Conjunctivae: conjunctivae normal Neck Neck: Yes normal visual inspection and Yes supple Resp Effort & Inspection: normal respiratory effort Auscultation: clear to auscultation bilaterally Cardio Jugular venous distension: no JVD Rate: regular rate Rhythm: regular rhythm Heart sounds: S1 normal heart sound present and S2 normal heart sound present Extrem General: Yes full ROM Results AMB Hemoglobin A1c AMB Hemoglobin A1c 6.0 % Last Edit by Chapis Hines CMA on 12/17/22 08:32 Assessment and Plan Assessment & Plan (1) Diabetes mellitus: Code(s): E11.9 - Type 2 diabetes mellitus without complications Plan: Continue metformin. A1c goal is equal or less than 7%. (2) Essential hypertension: Code(s): I10 - Essential (primary) hypertension Plan: Continue lisinopril. Blood pressure goal is equal or less than 130/80 (3) Moderate recurrent major depression: Code(s): F33.1 - Major depressive disorder, recurrent, moderate Plan: Continue counseling. (4) Seronegative rheumatoid arthritis: Code(s): M06.00 - Rheumatoid arthritis without rheumatoid factor, unspecified site Plan: Follow-up with rheumatology Orders: Orders Comprehensive [place]. Panel Fast Today E11.9 - Type 2 diabetes mellitus without complications Lipid Panel Today E78.5 - Hyperlipidemia, unspecified Vitamin D 25-OH Total Today E55.9 - Vitamin D deficiency, unspecified Microalbumin, Random (w Creat) Today E11.9 - Type 2 diabetes mellitus without complications ECG 12 lead EKG Today R07.9 - Chest pain, unspecified PSA,Total (Free>4and<10) Today Z12.5 - Encounter for screening for malignant neoplasm of prostate AMB Hemoglobin A1c Today Z13.9 - Encounter for screening, unspecified Coding Level of Care Code Est Pt Level 4 (12956) Diagnoses Diabetes mellitus E11.9 Essential hypertension I10 Moderate recurrent major depression F33.1 Seronegative rheumatoid arthritis M06.00 Time Spent (min) 23
== END 2022-12-17 08:37 | disposition home or self-care (01) ==
PROVIDERS: Visit Provider Internal Medicine
DX: E11.9 Type 2 diabetes mellitus without complications (principal); I10 Essential (primary) hypertension; F33.1 Major depressive disorder, recurrent, moderate; M06.00 Rheumatoid arthritis without rheumatoid factor, unspecified site
CPT/HCPCS: 83036; 99214

== ENCOUNTER 2023-01-28 10:14 | Outpatient (AMB) | payer OTHER, SELFPAY ==
--- NOTE | 2023-01-28 10:18 | A.OFFVIS_ITS ---
Intake Vital Signs 01/28/23 10:30 Height 5 ft Weight 161 lb 9.581 oz BMI 31.6 BP 166/88 H Blood Pressure Location Rt brachial Position Sitting Pulse 61 Pulse Source Pulse Oximeter Temp 98.3 F Temp Source Skin Pulse Oximetry (%) 97 Oxygen Delivery Method Room Air Intake Visit Reasons: ra, fm Intake Note: Patient presents today for RA and Fibromyalgia follow up. c/o low back pain Care Management Coordinator Required: Yes Care Management Coordinator Language: Credit Authorizer Name: Ravinder [id number] Information Interpreted: clinical only Allergies celecoxib [From CELEBREX] Allergy (Mild, Verified 01/28/23 10:31) HIVES,ITCHING,RASH HPI HPI Comments History of Present Illness Details The patient returns for evaluation of his rheumatoid arthritis. The translating service was used to facilitate the visit. He was started on Enbrel about 7 or 8 weeks ago. He had a previous good experience with that and says he did get some improvement particularly in his hands, shoulders and knees. He still gets stiffness in the hands in the morning that lasts half an hour. He is more uncomfortable with nighttime ankle pain, right greater than left and back pain. He is using some baclofen for back pain. MRI is planned to further investigate is LFT abnormalities. He says diabetes is under good control with metformin. [facility] Medical History Depression Diabetes mellitus Erectile dysfunction Essential hypertension Hypovitaminosis D Migraines 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 Right arm pain Surgical History Hx of colonoscopy History of orthopedic surgery History of carpal tunnel release History of arthroscopy of left shoulder History of appendectomy History of nasal surgery History of eye surgery History of hand surgery Family History Father Stroke Mother Hypertension Arthritis Osteoporosis Depression with anxiety Brother Cognitive developmental delay Psychiatric problem Mental health disorder Social History Housing: House Alcohol intake: former Patient Tobacco Use Status: Former Tobacco user Tobacco use type: Cigarette Cigarettes Per Day: 20 Years Smoked: 20 e-Cigarette/Vaping Use: Never Used Second Hand Smoke Exposure: No service: No Current occupational status: retired Cognitive needs: No Hearing needs: No Vision needs: Yes (Glasses) Review of Systems Const Details: Negative for appetite change, weight change, fever, chills, malaise and fatigue Eyes Details: Negative for vision change, dry eyes,headaches and dizziness Card Details: Negative chest pain, edema and syncope Resp Details: Negative for SOB, cough and wheezing GI Details: Negative indigestion/heartburn, nausea, abdominal pain, bowel changes, diarrhea, constipation and bloody stool. Endo Details: Negative for polyuria and polydypsia Lalit/Lymph Details: Negative for excessive bruising or bleeding. Physical Exam Vital Signs: Last Vital Signs Temp 98.3 F 01/28/23 10:30 Pulse 61 01/28/23 10:30 BP 166/88 H 01/28/23 10:30 Pulse Ox 97 01/28/23 10:30 Oxygen Delivery Method Room Air 01/28/23 10:30 BMI result Body Mass Index 31.6 APPEARANCE: Patient in no acute distress EYES no redness, pupils equal and reactive to light, eyelids normal Cervical Spine:.? Mild pain with extremes of range of motion. Some cervical muscle tenderness. Thoracic Spine:.? No scoliosis.? No tenderness on palpation. Lumbar Spine:.? Alignment normal.? Lumbar pain with 45 degrees of flexion or any attempts at hyperextension. There is mild paraspinal muscle tenderness. Chest Wall:.? No tenderness, swelling, increased warmth or erythema. Hands: ? Normal pain-free range of motion without tenderness, swelling, increased warmth or erythema. 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 Wrists:? Mild pain with 75 degrees flexion extension with some mild dorsal tenderness but no swelling, increased warmth or erythema. Elbows:. Normal pain-free range of motion without tenderness, swelling, increased warmth or erythema. Shoulders:.?? Full range of motion with mild pain at the extremes of abduction. There is mild anterior and posterior shoulder tenderness. There is no axillary adenopathy or supraclavicular adenopathy. There is no abductor weakness, soft tissue swelling, increased warmth or erythema. Hips:? Full range of motion with some lumbar pain at the extremes of normal internal or external rotation. No groin pain with motion. Hip bursa:.? Mild trochanteric tenderness. Knees:.?? Slight pain with extremes of normal flexion extension. He has slight patellofemoral crepitus bilaterally. There is some minimal medial compartment tenderness without effusion, soft tissue swelling, increased warmth or erythema.? Ankles:.? There is pain with AP flexion or extension and with inversion or eversion in both ankles. There is mild to moderate anterior tenderness. There is only mild medial and lateral tenderness. There is no redness or warmth. Feet:.? There is slight 1st MTP bony enlargement bilaterally without tenderness. Other joints have normal pain-free range of motion without tenderness, swelling, increased warmth or erythema. There are no breaks in the skin. Pulses are intact. There are no sensory deficits detected Tender points:. Mild tenderness to digital palpation at the occiput, trapezius, second rib, lateral epicondyle, knees, greater trochanter and gluteal area bila terally. ? Assessment & Plan Assessment & Plan (1) Fibromyalgia: Code(s): M79.7 - Fibromyalgia (2) Bilateral ankle pain: Code(s): M25.571 - Pain in right ankle and joints of right foot; M25.572 - Pain in left ankle and joints of left foot (3) Seronegative rheumatoid arthritis: Code(s): M06.00 - Rheumatoid arthritis without rheumatoid factor, unspecified site Plan He says he feels better on the Enbrel but I can not say that there is any marked change in his physical exam. There was quite a bit of tenderness today in the ankles and he has more back pain. I suspect he does have some inflammatory arthritis but the overwhelming majority of his pain is likely due to fibromyalgia. There are also low back symptoms due to degenerative arthritis in the lower back. For now we will continue with the Enbrel. I will add back his diclofenac gel which he thought was helpful. I will check some ankle films to see if there is any structural issues that we could be missing here. I will add gabapentin to his nighttime regimen increasing over 3 weeks up to 300 mg at night. A recheck in 3 months is recommended. Orders: Orders XR ankle LT min 3V Today M25.571 - Pain in right ankle and joints of right foot, M25.572 - Pain in left ankle and joints of left foot XR ankle RT min 3V Today M25.571 - Pain in right ankle and joints of right foot, M25.572 - Pain in left ankle and joints of left foot Medications: New gabapentin one at night for a week, then two at night for a week, then 3 at night; 90 caps 3RF M79.7 - Fibromyalgia Changed From diclofenac sodium 1% (Arthritis Pain (diclofenac)) apply to single elbow, wrist or hand; for hand includes palm/fingers/back of hand 2 grams topical TID PRN 100 grams 0RF pain M06.00 - Rheumatoid arthritis without rheumatoid factor, unspecified site To diclofenac sodium 1% (Arthritis Pain (diclofenac)) apply to affected joints 1 to 2 times daily 2 grams topical TID PRN 100 grams 2RF pain M06.00 - Rheumatoid arthritis without rheumatoid factor, unspecified site Coding Level of Care Code Est Pt Level 3 (86621) Diagnoses Fibromyalgia M79.7 Bilateral ankle pain M25.571; M25.572 Seronegative rheumatoid arthritis M06.00
[2023-01-28 10:30] VITALS: BP 166/88; PULSE 61; TEMP 36.8; O2SAT 97; BMI 31.6
== END 2023-01-28 10:56 | disposition home or self-care (01) ==
PROVIDERS: PCP Internal Medicine; Visit Provider Internal Medicine Rheumatology
DX: M79.7 Fibromyalgia (principal); M25.571 Pain in right ankle and joints of right foot; M25.572 Pain in left ankle and joints of left foot; M06.00 Rheumatoid arthritis without rheumatoid factor, unspecified site
CPT/HCPCS: 99213

== ENCOUNTER → 2023-01-28 10:14 | Outpatient (BNVA) | payer OTHER, SELFPAY | PROVIDERS: PCP Internal Medicine; Visit Provider Internal Medicine Rheumatology | DX: M79.7 Fibromyalgia (principal); M25.571 Pain in right ankle and joints of right foot; M25.572 Pain in left ankle and joints of left foot; M06.00 Rheumatoid arthritis without rheumatoid factor, unspecified site | CPT/HCPCS: 99212 ==

== ENCOUNTER 2023-02-08 09:09 | Outpatient (REF) | payer OTHER, SELFPAY ==
--- NOTE | ~2023-02-08 | XR_ITS ---
EXAMINATION: XR ANKLE, RIGHT CLINICAL INFORMATION: Pain COMPARISON: Ankle radiographs 02/08/2023 TECHNIQUE: AP, lateral, and mortise views of the right ankle. FINDINGS: No acute fracture or dislocation. Mild degenerative changes of the ankle with tibiotalar spurring, plantar calcaneal spurring and Achilles tendon enthesopathy similar to prior. Soft tissues are unremarkable. No joint effusion. XR/XR ankle RT min 3V IMPRESSION: Mild degenerative changes of the ankle with tibiotalar spurring, plantar calcaneal spurring and Achilles tendon enthesopathy similar to prior.
--- NOTE | ~2023-02-08 | XR_ITS ---
EXAMINATION: XR ANKLE, LEFT CLINICAL INFORMATION: Pain COMPARISON: Ankle radiographs 01/01/2020 TECHNIQUE: AP, lateral, and mortise views of the left ankle. FINDINGS: No acute fracture or dislocation. Mild degenerative changes of the ankle with tibiotalar spurring and Achilles tendon enthesopathy similar to prior. Soft tissues are unremarkable. No joint effusion. XR/XR ankle LT min 3V IMPRESSION: Mild degenerative changes of the ankle with tibiotalar spurring and Achilles tendon enthesopathy similar to prior.
== END 2023-02-08 09:10 | disposition home or self-care (01) ==
LOC: HO.MRI 09:09
PROVIDERS: Absent Provider Internal Medicine Rheumatology; PCP Internal Medicine; Visit Provider Internal Medicine
DX: R74.8 Abnormal levels of other serum enzymes (principal); K82.4 Cholesterolosis of gallbladder; M25.571 Pain in right ankle and joints of right foot; M25.572 Pain in left ankle and joints of left foot
CPT/HCPCS: 73610; 74183; A9585

== ENCOUNTER 2023-04-22 08:04 | Outpatient (AMB) | payer OTHER, SELFPAY ==
--- NOTE | 2023-04-22 08:08 | MHC.PC.OV ---
Vital Signs 04/22/23 08:09 04/22/23 08:34 Height 5 ft Weight 162 lb BMI 31.6 BP 182/90 H 180/90 H Blood Pressure Location Lt brachial Lt brachial Position Sitting Sitting Intake Visit Reasons: DM Intake Note: Patient here for a follow up DM [employer] Program Coordinator Required: No Accompanied by: Self / Same As Patient Allergies celecoxib [From CELEBREX] Allergy (Mild, Verified 04/22/23 08:22) HIVES,ITCHING,RASH Medication List - Last Reconciled 04/22/23 by Linda Arambula MD amlodipine 10 mg PO DAILY 90 days atorvastatin 20 mg PO BEDTIME 90 days baclofen 10 mg PO BID blood pressure monitor As directed blood sugar diagnostic (FreeStyle Test strips) used 1 test strip once a day blood sugar diagnostic (FreeStyle Lite Strips) use one strip once a day as directed blood-glucose meter (FreeStyle Lite Meter kit) use once a day as directed cholecalciferol (vitamin D3) 50 mcg (2 x 25 mcg (1,000 unit)) PO DAILY diclofenac sodium 1% (Arthritis Pain (diclofenac)) 2 grams topical TID PRN etanercept (Enbrel SureClick) 50 mg subcut QWEEK fluocinonide 0.05% 1 appl topical BID gabapentin one at night for a week, then two at night for a week, then 3 at night; lancets (FreeStyle Lancets) use 1 lancet once a day lidocaine 5% 1 patch topical DAILY PRN 30 days lisinopril 40 mg PO DAILY 90 days metformin 500 mg PO DAILY 90 days sumatriptan succinate 25 mg PO ONCE PRN 30 days Tobacco use date assessed: 07/18/22 Dental Screening Dental Screen Date: 04/22/23 Did you have a dental visit in the last 12 months?: No Did you have a dental problem in the last 6 months where you did not have access to dental care?: No Was dental information given to patient?: Yes HPI HPI Comments History of Present Illness Details This is a 58-year-old male with diabetes mellitus type 2, hypertension, serum negative rheumatoid arthritis and moderate recurrent major depression comes today for follow-up on his conditions. A1c elevated and I will increase metformin from 500 mg once a day to twice a day. Blood pressure elevated but he has not take his lisinopril yet and this will be recheck in 3 weeks. On Enbrel for rheumatoid arthritis and this is follow by Rheumatology. Depression still present and he declines to start a medication but does have counseling. No chest pain or shortness of breath. [facility] Medical History Right arm pain Moderate recurrent major depression Diabetes mellitus Erectile dysfunction Hypovitaminosis D Depression Migraines Essential hypertension Non-radiographic axial spondyloarthritis Surgical History Hx of colonoscopy History of orthopedic surgery History of carpal tunnel release History of arthroscopy of left shoulder History of appendectomy History of nasal surgery History of eye surgery History of hand surgery Family History (Updated 04/22/23 @ 08:26 by Linda Arambula MD) Father Stroke Mother Hypertension Arthritis Osteoporosis Depression with anxiety Lung cancer Brother Cognitive developmental delay Psychiatric problem Mental health disorder Social History Housing: House Alcohol intake: former Patient Tobacco Use Status: Former Tobacco user Tobacco use type: Cigarette Cigarettes Per Day: 20 Years Smoked: 20 e-Cigarette/Vaping Use: Never Used Second Hand Smoke Exposure: No service: No Current occupational status: retired Cognitive needs: No Hearing needs: No Vision needs: Yes (Glasses) Questionnaire Thrive Questionnaire Date Thrive assessed: 07/18/22 JANETH-7 AMB Questionnaire JANETH-7 Date JANETH - 7 assessed: 07/18/22 Source: Developed by Drs. Toy Blair, Tatianna Pina, Diego Jimenes and colleagues, with an educational lissette from [employer]. Review of Systems Const All systems reviewed & are unremarkable except as noted in HPI and below Eyes Reports no additional complaints, Denies change in vision and Denies other visual disturbances Card Denies chest pain at rest, Denies chest pain with activity, Denies edema, Denies irregular heart rhythm, Denies claudication, Denies dyspnea, Denies dyspnea on exertion, Denies orthopnea, Denies paroxysmal nocturnal dyspnea and Denies slow heart rate Resp Denies cough, Denies dyspnea and Denies dyspnea on exertion GI Denies abdominal pain, Denies change in bowel habits, Denies excessive flatus, Denies nausea and Denies vomiting Denies urinary hesitancy, Denies urinary incontinence and Denies urinary urgency Musc Denies abnormal gait, Denies atrophy, Denies deformity and Denies limited range of motion Skin/Breast Denies bleeding lesions, Denies changing lesions and Denies rash Neuro Denies abnormal gait, Denies behavioral changes and Denies lack of coordination Psych Denies behavioral changes and Reports depression Physical exam (Primary Care) Vital Signs: Last Vital Signs BP 180/90 H 04/22/23 08:34 BMI result Body Mass Index 31.6 Tobacco/Smoking Status: Tobacco use Status Tobacco use date assessed 07/18/22 04/22/23 08:18 Patient Tobacco Use Status Former Tobacco user 04/22/23 08:18 Tobacco use type Cigarette 04/22/23 08:18 e-Cigarette/Vaping Use Never Used 04/22/23 08:18 Thrive Assessment: Date of Thrive Assessment Date Thrive assessed 07/18/22 04/22/23 08:18 Eyes General: appearance normal, both eyes and all related structures Eyelids: Yes eyelids normal Conjunctivae: conjunctivae normal Neck Neck: Yes normal visual inspection and Yes supple Resp Effort & Inspection: normal respiratory effort Auscultation: clear to auscultation bilaterally Cardio Jugular venous distension: no JVD Rate: regular rate Rhythm: regular rhythm Heart sounds: S1 normal heart sound present and S2 normal heart sound present Extrem General: Yes full ROM Psych Affect: Sad affect present Office Procedures Flu Questionnaire Does the patient have a severe egg allergy?: No Results AMB Hemoglobin A1c AMB Hemoglobin A1c 7.8 % Last Edit by BILL Pang on 04/22/23 08:20 Immunizations flu vacc [id number] 6mos up(PF) 60 mcg(15 mcgx4)/0.5 mL IM syringe Performing Provider: Linda Arambula MD Performing Location: [facility] [place] [facility] Documented (not given) by: BILL Pang on 04/22/23 08:35 Reason Not Given: Not Given Results Reviewed Results Reviewed: Laboratory Last Values Hgb A1c (Clinic) 7.8 % (4.0-6.0) H 04/22/23 08:18 Assessment and Plan Assessment & Plan (1) Seronegative rheumatoid arthritis: Code(s): M06.00 - Rheumatoid arthritis without rheumatoid factor, unspecified site Plan: Continue Enbrel. Follow-up with rheumatology. (2) Moderate recurrent major depression: Code(s): F33.1 - Major depressive disorder, recurrent, moderate Plan: Continue counseling. (3) Diabetes mellitus: Code(s): E11.9 - Type 2 diabetes mellitus without complications Qualifiers: Diabetes mellitus complication status: with hyperglycemia Diabetes mellitus detention insulin use: without detention use Diabetes mellitus type: type 2 Qualified Code(s): E11.65 - Type 2 diabetes mellitus with hyperglycemia Plan: Increase metformin 500 mg to twice a day. A1c goal is equal or less than 7%. (4) Essential hypertension: Code(s): I10 - Essential (primary) hypertension Plan: Continue amlodipine and lisinopril. Blood pressure goal is equal or less than 130/80. Recheck blood pressure with nurse navigator in 3 weeks. Orders: Orders Microalbumin, Random (w Creat) Today E11.9 - Type 2 diabetes mellitus without complications Parathyroid Hormone Intact Today E21.3 - Hyperparathyroidism, unspecified Calcium, Ionized Today E21.3 - Hyperparathyroidism, unspecified Phosphorus Today E21.3 - Hyperparathyroidism, unspecified AMB Hemoglobin A1c Today E11.9 - Type 2 diabetes mellitus without complications Influenza [id number] Immunization Today Z23 - Encounter for immunization Lipid Panel Today E78.5 - Hyperlipidemia, unspecified Vitamin D 25-OH Total Today E55.9 - Vitamin D deficiency, unspecified Comprehensive [place]. Panel Fast Today E78.5 - Hyperlipidemia, unspecified Medications: Changed From metformin 500 mg PO DAILY 90 days 90 tabs 2RF E11.9 - Type 2 diabetes mellitus without complications To metformin 500 mg PO BID 90 days 180 tabs 2RF E11.9 - Type 2 diabetes mellitus without complications Coding Level of Care Code Est Pt Level 4 (78895) Diagnoses Seronegative rheumatoid arthritis M06.00 Moderate recurrent major depression F33.1 Type 2 diabetes mellitus with hyperglycemia, without long-term current use of insulin E11.65 Diabetes mellitus complication status: with hyperglycemia Diabetes mellitus detention insulin use: without remote computer terminal operator use Diabetes mellitus type: type 2 Essential hypertension I10 Time Spent (min) 23
[2023-04-22 08:09] VITALS: BP 182/90; BMI 31.6
[2023-04-22 08:34] VITALS: BP 180/90
== END 2023-04-22 08:34 | disposition home or self-care (01) ==
PROVIDERS: PCP Internal Medicine; Visit Provider Internal Medicine
DX: M06.00 Rheumatoid arthritis without rheumatoid factor, unspecified site (principal); F33.1 Major depressive disorder, recurrent, moderate; E11.65 Type 2 diabetes mellitus with hyperglycemia; I10 Essential (primary) hypertension
CPT/HCPCS: 83036; 99214

== ENCOUNTER 2023-04-30 09:40 | Outpatient (AMB) | payer OTHER, SELFPAY ==
[2023-04-30 09:44] VITALS: BP 146/76; PULSE 55; TEMP 36.1; O2SAT 95; BMI 31.8
--- NOTE | 2023-04-30 09:44 | A.OFFVIS_ITS ---
Intake Vital Signs 04/30/23 09:44 Height 5 ft Weight 162 lb 11.218 oz BMI 31.8 BP 146/76 H Blood Pressure Location Lt brachial Position Sitting Pulse 55 Pulse Source Pulse Oximeter Temp 97 F Temp Source Skin Pulse Oximetry (%) 95 Oxygen Delivery Method Room Air Intake Visit Reasons: RA/FM Intake Note: Patient last seen 01/28/23, presents today for follow up and test results. Reports tiredness and joint pains. Reports having a spasm under right ribs for about 2 months. Taking Baclofen but soreness is still present. Needs refills on baclofen, Enbrel, Diclofenac gel, and gabapentin. Senior Advisory Required: Yes Senior Advisory Language: Harness Fitter Name: Bethany [id number] Information Interpreted: clinical only Accompanied by: Self / Same As Patient Allergies celecoxib [From CELEBREX] Allergy (Mild, Verified 04/30/23 09:48) HIVES,ITCHING,RASH Medication List - Last Reconciled 04/30/23 by Celso Huff MD amlodipine 10 mg PO DAILY 90 days atorvastatin 20 mg PO BEDTIME 90 days baclofen 10 mg PO BID blood pressure monitor As directed blood sugar diagnostic (FreeStyle Test strips) used 1 test strip once a day blood sugar diagnostic (FreeStyle Lite Strips) use one strip once a day as directed blood-glucose meter (FreeStyle Lite Meter kit) use once a day as directed cholecalciferol (vitamin D3) 50 mcg (2 x 25 mcg (1,000 unit)) PO DAILY diclofenac sodium 1% (Arthritis Pain (diclofenac)) 2 grams topical TID PRN etanercept (Enbrel SureClick) 50 mg subcut QWEEK fluocinonide 0.05% 1 appl topical BID gabapentin one at night for a week, then two at night for a week, then 3 at night; lancets (FreeStyle Lancets) use 1 lancet once a day lisinopril 40 mg PO DAILY 90 days metformin 500 mg PO BID 90 days sumatriptan succinate 25 mg PO ONCE PRN 30 days HPI HPI Comments History of Present Illness Details The patient returns for evaluation of his presumed spondyloarthropathy. He does not seem to have much in the way of back pain presently but he is complaining of some right rib pain for the past 2 months. The rib pain is greater with twisting the torso, taking deep breath, or coughing. Says he was lifting some trash before the pain developed but does not recall actually discrete injury. Other less bothersome pains occur in the shoulders, hands, hips and knees. He remains on the Enbrel at 50 mg weekly, baclofen 10 mg b.i.d. p.r.n., diclofenac gel to the hands if needed for pain, and gabapentin 300 q.h.s.. [facility] Medical History Right arm pain Moderate recurrent major depression Diabetes mellitus Erectile dysfunction Hypovitaminosis D Depression Migraines Essential hypertension Non-radiographic axial spondyloarthritis Surgical History Hx of colonoscopy History of orthopedic surgery History of carpal tunnel release History of arthroscopy of left shoulder History of appendectomy History of nasal surgery History of eye surgery History of hand surgery Family History Father Stroke Mother Hypertension Arthritis Osteoporosis Depression with anxiety Lung cancer Brother Cognitive developmental delay Psychiatric problem Mental health disorder Social History Housing: House Alcohol intake: former Patient Tobacco Use Status: Former Tobacco user Tobacco use type: Cigarette Cigarettes Per Day: 20 Years Smoked: 20 e-Cigarette/Vaping Use: Never Used Second Hand Smoke Exposure: No service: No Current occupational status: retired Cognitive needs: No Hearing needs: No Vision needs: Yes (Glasses) Review of Systems Const Details: Low energy at times. Negative for appetite change, weight change, fever, chills, malaise Eyes Details: Negative for vision change, dry eyes,headaches and dizziness ENT Details: Negative for hearing change, tinnitus, oral ulcer, nose bleeds and oral dryness. Card Details: Negative chest pain, edema and syncope Resp Details: Negative for SOB, cough and wheezing GI Details: Negative indigestion/heartburn, nausea, abdominal pain, bowel changes, diarrhea, constipation and bloody stool. Skin/Breast Details: Negative for itching, rash, hives, Raynaud's symptoms, sun sensitivity, and skin cancer Neuro Details: Negative for epilepsy, palsy, stroke, changes in speech, tingling and weakness Endo Details: Negative for polyuria and polydypsia Lalit/Lymph Details: Negative for excessive bruising or bleeding. Physical Exam Vital Signs: Last Vital Signs Temp 97 F 04/30/23 09:44 Pulse 55 04/30/23 09:44 BP 146/76 H 04/30/23 09:44 Pulse Ox 95 04/30/23 09:44 Oxygen Delivery Method Room Air 04/30/23 09:44 BMI result Body Mass Index 31.8 APPEARANCE: Patient in no acute distress EYES no redness, pupils equal and reactive to light, eyelids normal Cervical Spine:.? Mild pain with extremes of range of motion. Some cervical muscle tenderness. Thoracic Spine:.? No scoliosis.? No tenderness on palpation. Lumbar Spine:.? Alignment normal.? Lumbar pain with 60 degrees of flexion or any attempts at hyperextension. There is mild paraspinal muscle tenderness. Chest Wall:.? There is tenderness at the right costal margin anteriorly. The two ribs in that region have mild tenderness but there is no associated bruising, swelling, increased warmth or erythema. Hands: ?Right: Normal pain-free range of motion. There is some slight bony enlargement at the 2nd through 4th PIP is, the 3rd is slightly tender. No soft tissue swelling, redness, or warmth. Left: Normal pain-free range of motion without tenderness, soft tissue swelling, increased warmth or erythema. There is some slight bony enlargement at the thumb IP and the other PIP joints. These are not tender today. Able to make a full fist and has a good extruding press adjuster strength. Wrists:? Mild pain with 75 degrees flexion extension with some mild dorsal tenderness but no swelling, increased warmth or erythema. Elbows:. Normal pain-free range of motion without tenderness, swelling, increased warmth or erythema. Shoulders:.?? Full range of motion with mild pain at the extremes of abduction. There is mild anterior and posterior shoulder tenderness. There is no axillary adenopathy or supraclavicular adenopathy. There is no abductor weakness, soft tissue swelling, increased warmth or erythema. Hips:? Full range of motion with some lumbar pain at the extremes of normal internal or external rotation. No groin pain with motion. Hip bursa:.? Mild trochanteric tenderness. Knees:.?? Slight pain with extremes of normal flexion extension. He has slight patellofemoral crepitus bilaterally. There is some minimal medial compartment tenderness without effusion, soft tissue swelling, increased warmth or erythema.? Ankles:.? There is pain with AP flexion or extension and with inversion or eversion in both ankles. There is mild to moderate anterior tenderness. There is only mild medial and lateral tenderness. There is no redness or warmth. Feet:.? There is slight 1st MTP bony enlargement bilaterally without tenderness. Other joints have normal pain-free range of motion without tenderness, swelling, increased warmth or erythema. There are no breaks in the skin. Pulses are intact. There are no sensory deficits detected Tender points:. Mild tenderness to digital palpation at the occiput, trapezius, second rib, lateral epicondyle, knees, greater trochanter and gluteal area bilaterally. ? Results Reviewed Results Reviewed: Laboratory Tests 04/22/23 08:18 Hgb A1c (Clinic) 7.8 H Assessment & Plan Assessment & Plan (1) Rib pain on right side: Code(s): R07.81 - Pleurodynia (2) Fibromyalgia: Code(s): M79.7 - Fibromyalgia (3) Non-radiographic axial spondyloarthritis: Code(s): M46.80 - Other specified inflammatory spondylopathies, site unspecified Plan So the patient did have a positive response to the restart of the Enbrel with less back pain. He still has many peripheral joints and muscles that are painful with many tender points consistent with some fibromyalgia. Today the right rib margin seems a bit tender. This is a pleuritic pain so I suspect this may be chest wall pain with costochondritis or injury that he does not recall sustaining. We will check some rib films, CBC, and acute phase reactants. For now he will stay the current regimen and we will plan follow-up in about 4-5 months. Orders: Orders Erythrocyte Sedimentation Rate Today M06.00 - Rheumatoid arthritis without rheumatoid factor, unspecified site C Reactive Protein Today M06.00 - Rheumatoid arthritis without rheumatoid factor, unspecified site Complete Blood Count Auto Diff Today M06.00 - Rheumatoid arthritis without rheumatoid factor, unspecified site, Z79.899 - Other prison (current) drug therapy XR ribs RT 2V Today R07.81 - Pleurodynia Medications: Changed From gabapentin one at night for a week, then two at night for a week, then 3 at night; 90 caps 3RF M79.7 - Fibromyalgia To gabapentin 100 - 300 mg (1 - 3 x 100 mg) PO BEDTIME PRN 90 caps 3RF pain M79.7 - Fibromyalgia Refilled etanercept (Enbrel SureClick) 50 mg subcut QWEEK 4 mL 5RF M06.00 - Rheumatoid arthritis without rheumatoid factor, unspecified site baclofen 10 mg PO BID 60 tabs 3RF M46.80 - Other specified inflammatory spon dylopathies, site unspecified diclofenac sodium 1% (Arthritis Pain (diclofenac)) apply to affected joints 1 to 2 times daily 2 grams topical TID PRN 100 grams 3RF pain M06.00 - Rheumatoid arthritis without rheumatoid factor, unspecified site Coding Level of Care Code Est Pt Level 3 (61880) Diagnoses Rib pain on right side R07.81 Fibromyalgia M79.7 Non-radiographic axial spondyloarthritis M46.80
== END 2023-04-30 10:21 | disposition home or self-care (01) ==
PROVIDERS: PCP Internal Medicine; Visit Provider Internal Medicine Rheumatology
DX: R07.81 Pleurodynia (principal); M79.7 Fibromyalgia; M46.80 Other specified inflammatory spondylopathies, site unspecified
CPT/HCPCS: 99213

== ENCOUNTER → 2023-04-30 09:40 | Outpatient (BNVA) | payer OTHER, SELFPAY | PROVIDERS: PCP Internal Medicine; Visit Provider Internal Medicine Rheumatology | DX: R07.81 Pleurodynia (principal); M79.7 Fibromyalgia; M46.80 Other specified inflammatory spondylopathies, site unspecified | CPT/HCPCS: 99212 ==

== ENCOUNTER 2023-08-26 00:03 | Emergency (ER) | payer OTHER, SELFPAY ==
--- NOTE | ~2023-08-26 | XR_ITS ---
EXAMINATION: XR ANKLE, LEFT CLINICAL INFORMATION: Pain, twisting injury COMPARISON: 02/08/2023 TECHNIQUE: AP, lateral, and mortise views of the left ankle. FINDINGS: Articular alignment is anatomic, and joint spaces appear maintained. No acute fracture is seen. Redemonstrated posterior and plantar calcaneal spurring. There is soft tissue swelling which is most prominent anterolaterally. XR/XR ankle LT min 3V IMPRESSION: Soft tissue swelling without acute osseous findings.
[2023-08-26 00:47] VITALS: BP 173/83; PULSE 49; RESP 16; TEMP 36.8; O2SAT 94; BMI 31.2
[2023-08-26 03:24] VITALS: BP 158/76; PULSE 46; RESP 16; TEMP 36.6; O2SAT 94
--- NOTE | 2023-08-26 08:23 | ED_ITS ---
HPI - Extremity Injury (Lower) General Chief Complaint: Extremity Injury, Lower Stated Complaint: twisted left ankle Time Seen by Provider: 08/26/23 08:17 Source: patient Mode of arrival: ambulatory Limitations: no limitations History of Present Illness HPI Narrative: 58 yo male with PMH of DM, HTN, migraines here with L ankle pain after inversion injury s/p walking on uneven ground reports prior sprain to that area. MD complaint: ankle injury Onset (ago): hour(s) (several ) Injury: Left: ankle Type of Injury: inversion Place: home Severity: moderate Relieving factors: rest Exacerbating factors: weight bearing, movement and palpation Context: walking Associated symptoms: snap/pop sensation and swelling Other symptoms: none Treatments prior to arrival: cold therapy Related Data Home Medications ?Medication ?Instructions ?Recorded ?Confirmed fluocinonide 0.05 % topical cream 1 appl topical BID 01/24/23 04/30/23 Previous Rx's ?Medication ?Instructions ?Recorded sumatriptan succinate 25 mg tablet 25 mg PO ONCE PRN migraine 06/08/22 headache 30 days #9 tabs lisinopril 40 mg tablet 40 mg PO DAILY 90 days #90 tabs 06/11/22 blood sugar diagnostic (FreeStyle #50 ea 07/18/22 Test strips) lancets 28 gauge (FreeStyle #100 ea 07/18/22 Lancets) blood sugar diagnostic (FreeStyle #50 ea 07/20/22 Lite Strips) blood-glucose meter (FreeStyle #1 ea 08/16/22 Lite Meter kit) blood pressure monitor #1 ea 09/17/22 amlodipine 10 mg tablet 10 mg PO DAILY 90 days #90 tabs 03/01/23 metformin 500 mg tablet 500 mg PO BID 90 days #180 tabs 04/22/23 baclofen 10 mg tablet 10 mg PO BID #60 tabs 04/30/23 diclofenac sodium 1 % topical gel 2 g topical TID PRN pain #100 grams 04/30/23 (Arthritis Pain (diclofenac)) etanercept 50 mg/mL (1 mL) 50 mg subcut QWEEK #4 mL 04/30/23 subcutaneous pen injector (Enbrel SureClick) gabapentin 100 mg capsule 100 - 300 mg (1 - 3 x 100 mg) PO 04/30/23 BEDTIME PRN pain #90 caps cholecalciferol (vitamin D3) 25 50 mcg (2 x 25 mcg (1,000 unit)) 05/30/23 mcg (1,000 unit) capsule PO DAILY #180 caps atorvastatin 20 mg tablet 20 mg PO BEDTIME 90 days #90 tabs 07/01/23 Allergies Allergy/AdvReac Type Severity Reaction Status Date / Time celecoxib [From CELEBREX] Allergy Mild HIVES,ITCHI Verified 08/26/23 00:58 NG,RASH Review of Systems Review of Systems: Constitutional : No Fever, No Chills ENT/Mouth : No Ear Pain, No Hoarseness, No sore throat Eyes: No Eye Pain, No Swelling, No Redness, No Foreign Body Cardiovascular : No Chest Pain, No SOB Respiratory : No Cough, No Dyspnea Gastrointestinal : No Nausea, No Vomiting, No Diarrhea, No abdominal Pain Musculoskeletal : positive joint pain, No Myalgias, pos Joint Swelling Skin : No Skin lacerations, No rash Neuro : No Weakness, No Numbness, No Loss of Consciousness, No Dizziness, No Headache All other systems reviewed and are negative PMFSH Past Medical History Attestation statement: The following information was validated with the patient. Source: old records reviewed Medical History Right arm pain Moderate recurrent major depression Diabetes mellitus Erectile dysfunction Hypovitaminosis D Depression Migraines Essential hypertension Non-radiographic axial spondyloarthritis Surgical History Hx of colonoscopy History of orthopedic surgery History of carpal tunnel release History of arthroscopy of left shoulder History of appendectomy History of nasal surgery History of eye surgery History of hand surgery Family History Family History Father Stroke Mother Hypertension Arthritis Osteoporosis Depression with anxiety Lung cancer Brother Cognitive developmental delay Psychiatric problem Mental health disorder Social History Social History Housing: House Alcohol intake: former Patient Tobacco Use Status: Former Tobacco user Tobacco use type: Cigarette Cigarettes Per Day: 20 Years Smoked: 20 e-Cigarette/Vaping Use: Never Used Second Hand Smoke Exposure: No Advance Directives: No Advance Directives Information Provided: Yes service: No Current occupational status: retired Cognitive needs: No Hearing needs: No Vision needs: Yes (Glasses) Physical Exam Vital Signs: Vital Signs: Last Vital Signs Temp 98 F 08/26/23 03:24 Pulse 46 L 08/26/23 03:24 Resp 16 08/26/23 03:24 BP 158/76 H 08/26/23 03:24 Pulse Ox 94 08/26/23 03:24 O2 Del Method Room Air 08/26/23 03:24 BMI result Body Mass Index 31.2 Appearance: Alert. Oriented X3. No acute distress. Eyes: Pupils equal, round and reactive to light. ENT: Pharynx normal. atraumatic Neck: Normal inspection. CVS: Pulses normal. Respiratory: No respiratory distress. Abdomen: atraumatic Skin: Skin warm and dry. Normal skin color. Extremities: L ankle ttp on lateral malleolus, distal NV intact, no prox filbula ttp Neuro: Oriented X 3. No motor deficit. No sensory deficit. Medical Decision Making Medical Decision Making MDM Narrative: 58 yo male with PMH of DM, HTN, migraines here with inversion injury of L ankle while walking on uneven driveway at this time NV intact, no prox fibula ttp will need xrays of ankle Differential Diagnosis Differential Diagnoses: The differential diagnosis associated with the presentation includes sprain, strain, fracture Independent Interpretation I performed an independent interpretation of an: Plain X-Ray (no fx) Radiology Impression Discussion of test interpretation with radiology: I have reviewed the radiologist's reading. External Record Review External record reviewed: Outpatient record Prescription Management I considered prescription management with: Pain Medication Discharge Plan Discharge Clinical Impression: Ankle sprain and strain Patient Disposition: Home, Self-Care Instructions: Ankle Sprain (ED) Additional Instructions: return for worsening pain, swelling, numbness, tingling use aircast for one week try not to bear weight for 5 days rest ice elevate take tylenol for pain follow up with your doctor if not better in 3 days Prescriptions: No Action sumatriptan succinate 25 mg tablet 25 mg PO ONCE PRN (Reason: migraine headache) 30 Days Qty: 9 6RF lisinopril 40 mg tablet 40 mg PO DAILY 90 Days Qty: 90 1RF (DME) FreeStyle Lite Strips Strip See Rx Instructions .Route Qty: 50 0RF Rx Instructions: use one strip once a day as directed (DME) blood pressure monitor Kit See Rx Instructions .Route Qty: 1 0RF Rx Instructions: As directed amlodipine 10 mg tablet 10 mg PO DAILY 90 Days Qty: 90 1RF cholecalciferol (vitamin D3) 25 mcg (1,000 unit) capsule 50 mcg PO DAILY Qty: 180 1RF atorvastatin 20 mg tablet 20 mg PO BEDTIME 90 Days Qty: 90 1RF (DME) blood-glucose meter [FreeStyle Lite Meter] Kit See Rx Instructions .Route Qty: 1 0RF Rx Instructions: use once a day as directed (DME) FreeStyle Test Strip See Rx Instructions .ROUTE .MEDSUPPLY Qty: 50 11RF Rx Instructions: used 1 test strip once a day (DME) lancets [FreeStyle Lancets] 28 gauge misc See Rx Instructions .ROUTE .MEDSUPPLY Qty: 100 11RF Rx Instructions: use 1 lancet once a day metformin 500 mg tablet 500 mg PO BID 90 Days Qty: 180 2RF fluocinonide 0.05 % cream 1 appl topical BID Enbrel SureClick 50 mg/mL (1 mL) pen injector 50 mg subcut QWEEK Qty: 4 5RF baclofen 10 mg tablet 10 mg PO BID Qty: 60 3RF gabapentin 100 mg capsule 100 - 300 mg PO BEDTIME PRN (Reason: pain) Qty: 90 3RF diclofenac sodium [Arthritis Pain (diclofenac)] 1 % gel 2 g topical TID PRN (Reason: pain) Qty: 100 3RF Rx Instructions: apply to affected joints 1 to 2 times daily Print Language: Syriac
--- NOTE | 2023-08-26 09:04 | PC.NURSE ---
PT WAS SEEN BY PROVIDER, - XRAY , FITTED FOR AIRCAST AND CRUTCHES.
== END 2023-08-26 09:06 | disposition home or self-care (01) ==
PROVIDERS: Emergency Provider Emergency Medicine; PCP Internal Medicine
DX: S93.402A Sprain of unspecified ligament of left ankle, initial encounter (principal); S96.912A Strain of unspecified muscle and tendon at ankle and foot level, left foot, initial encounter; E11.9 Type 2 diabetes mellitus without complications; I10 Essential (primary) hypertension; X50.1XXA Overexertion from prolonged static or awkward postures, initial encounter; Y93.01 Activity, walking, marching and hiking; Y92.009 Unspecified place in unspecified non-institutional (private) residence as the place of occurrence of the external cause; Y99.9 Unspecified external cause status
CPT/HCPCS: 73610; 99282; 99283

== ENCOUNTER 2023-09-25 09:35 | Outpatient (AMB) | payer OTHER, SELFPAY ==
[2023-09-25 09:37] VITALS: BP 160/100; BMI 31.4
--- NOTE | 2023-09-25 09:37 | MHC.PC.OV ---
Vital Signs 09/25/23 09:37 09/25/23 10:21 Height 5 ft Weight 161 lb BMI 31.4 BP 160/100 H 160/98 H Blood Pressure Location Lt brachial Lt brachial Position Sitting Sitting Intake Visit Reasons: Annual Exam- see comments Intake Note: Patient here for a physical exam Shank Threader Required: No Accompanied by: Self / Same As Patient Allergies celecoxib [From CELEBREX] Allergy (Mild, Verified 09/25/23 10:00) HIVES,ITCHING,RASH Medication List - Last Reconciled 09/25/23 by Linda Arambula MD amlodipine 10 mg PO DAILY 90 days atorvastatin 20 mg PO BEDTIME 90 days baclofen 10 mg PO BID blood pressure monitor As directed blood sugar diagnostic (FreeStyle Test strips) used 1 test strip once a day blood sugar diagnostic (FreeStyle Lite Strips) use one strip once a day as directed blood-glucose meter (FreeStyle Lite Meter kit) use once a day as directed cholecalciferol (vitamin D3) 50 mcg (2 x 25 mcg (1,000 unit)) PO DAILY diclofenac sodium 1% (Arthritis Pain (diclofenac)) 2 grams topical TID PRN etanercept (Enbrel SureClick) 50 mg subcut QWEEK fluocinonide 0.05% 1 appl topical BID gabapentin 100 - 300 mg (1 - 3 x 100 mg) PO BEDTIME PRN lancets (FreeStyle Lancets) use 1 lancet once a day lisinopril 40 mg PO DAILY 90 days metformin 500 mg PO BID 90 days sumatriptan succinate 25 mg PO ONCE PRN 30 days Tobacco use date assessed: 09/25/23 Dental Screening Dental Screen Date: 09/25/23 Did you have a dental visit in the last 12 months?: No Did you have a dental problem in the last 6 months where you did not have access to dental care?: No Was dental information given to patient?: Patient declined HPI HPI Comments History of Present Illness Details This is a 58-year-old male with rheumatoid arthritis, diabetes mellitus type 2, moderate major depression and non radiographic axial spondyloarthropathy that comes for his physical exam. Rheumatoid arthritis and spondyloarthropathy are follow by Rheumatology. A1c within goal. Last diabetic eye exam was January 2023. Last colonoscopy was 2013 and will be refer through open access. Blood pressure elevated and will be recheck in 3 weeks by nurse navigator. He admits he did not took his medications today. Depression has been stable with counseling. [facility] Medical History (Updated 09/25/23 @ 10:18 by Linda Arambula MD) History of substance abuse Hyperparathyroidism Right arm pain Moderate recurrent major depression Diabetes mellitus Erectile dysfunction Hypovitaminosis D Depression Migraines Essential hypertension Non-radiographic axial spondyloarthritis Surgical History Hx of colonoscopy History of orthopedic surgery History of carpal tunnel release History of arthroscopy of left shoulder History of appendectomy History of nasal surgery History of eye surgery History of hand surgery Family History Father Stroke Mother Hypertension Arthritis Osteoporosis Depression with anxiety Lung cancer Brother Cognitive developmental delay Psychiatric problem Mental health disorder Social History Housing: House Alcohol intake: former Patient Tobacco Use Status: Former Tobacco user Tobacco use type: Cigarette Cigarettes Per Day: 20 Years Smoked: 20 e-Cigarette/Vaping Use: Never Used Second Hand Smoke Exposure: No service: No Current occupational status: retired Cognitive needs: No Hearing needs: No Vision needs: Yes (Glasses) Questionnaire PHQ-9 Over the last 2 weeks, how often have you been bothered by any of the following problems? 1. Little interest or pleasure in doing things: several days 2. Feeling down, depressed, or hopeless: nearly every day 3. Trouble falling or staying asleep, or sleeping too much: several days 4. Feeling tired or having little energy: more than half the days 5. Poor appetite or overeating: several days 6. Feeling bad about yourself - or that you are a failure or have let yourself or your family down: several days 7. Trouble concentrating on things, such as reading the newspaper or watching television: several days 8. Moving or speaking so slowly that other people could have noticed. Or the opposite - being so fidgety or restless that you have been moving around a lot more than usual: several days 9. Thoughts that you would be better off or of hurting yourself in some way: several days Total score: 12 Depression Screening Interpretation: Positive Depression Screening Follow-up: Existing condition and In treatment Depression Screening Done: Yes 49742 - PHQ-9 Billing: Yes Source: Developed by Drs. Toy Blair, Diego Cano and colleagues, with an educational lissette from [employer]. Thrive Questionnaire Date Thrive assessed: 09/25/23 I am a: Patient What is your living situation today?: I have a steady place to live Within the past 12 months, did the food you bought not last and you didn't have the money to get more?: Never true Within the past 12 months, did you worry whether your food would run out before you got money to buy more?: Never true Do you have trouble paying for medicines?: No Do you have trouble getting transportation to medical appointments?: No Do you have trouble paying your heating and electricity bill?: No Do you have trouble taking care of your child, family member or friend?: No Do you have trouble with day-to-day activities such as bathing, preparing meals, shopping, managing finances, etc.?: No Are you currently unemployed and looking for a job?: No Are you interested in more education?: No Please select the resources that you would like help with: None Currently or been in a relationship where the following occur: no concerns reported THRIVE Score: 0 AUDIT C Alcohol Use Questionnaire (AUDIT-C) 1. How often do you have a drink containing alcohol?: Never Total Score: 0 JANETH-7 AMB Questionnaire JANETH-7 Date JANETH - 7 assessed: 09/25/23 Feeling nervous, anxious, or on edge: 2 = More than half the days Not being able to stop or control worryin = Several days Worrying too much about different things: 3 = Nearly every day Trouble relaxin = Several days Being so restless that it is hard to sit still: 2 = More than half the days Becoming easily annoyed or irritable: 3 = Nearly every day Feeling afraid as if something awful might happen: 1 = Several days Total JANETH-7 score (0-4 normal; 5-9 mild; 10-14 moderate; 15-21 severe): 13 Source: Developed by Tatianna Hurst Kurt Kroenke and colleagues, with an educational lissette from [employer]. JANETH-7 Assessment Billing JANETH-7 Assessment Tool: JANETH-7 Assessment 37350 Review of Systems Const All systems reviewed & are unremarkable except as noted in HPI and below Eyes Reports no additional complaints, Denies change in vision and Denies other visual disturbances Card Denies chest pain at rest, Denies chest pain with activity, Denies edema, Denies irregular heart rhythm, Denies claudication, Denies dyspnea, Denies dyspnea on exertion, Denies orthopnea, Denies paroxysmal nocturnal dyspnea and Denies slow heart rate Resp Denies cough, Denies dyspnea and Denies dyspnea on exertion Physical exam (Primary Care) Vital Signs: Last Vital Signs BP 160/100 H 09/25/23 09:37 BMI result Body Mass Index 31.4 Tobacco/Smoking Status: Tobacco use Status Tobacco use date assessed 09/25/23 09/25/23 09:47 Patient Tobacco Use Status Former Tobacco user 09/25/23 09:37 Tobacco use type Cigarette 09/25/23 09:37 e-Cigarette/Vaping Use Never Used 09/25/23 09:37 PHQ-9: PHQ-9 Score PHQ-9: Total score 12 09/25/23 09:48 Depression Screening Interpretation: Positive Depression Screening Follow-up: Existing condition and In treatment Thrive Assessment: Date of Thrive Assessment Date Thrive assessed 09/25/23 09/25/23 09:47 Currently or been in a relationship where the following occur: no concerns reported Const Orientation/consciousness: patient oriented x3 HENME Head: Yes normal to inspection, Yes normocephalic and Yes atraumatic Ears: external ears normal Eyes General: appearance normal, both eyes and all related structures Eyelids: Yes eyelids normal Conjunctivae: conjunctivae normal Neck Neck: Yes normal visual inspection and Yes supple Resp Effort & Inspection: normal respiratory effort Auscultation: clear to auscultation bilaterally Cardio Jugular venous distension: no JVD Rate: regular rate Rhythm: regular rhythm Heart sounds: S1 normal heart sound present and S2 normal heart sound present GI Inspection: Yes normal to inspection Palpation (GI): Soft to palpation and nontender Auscultation: normal bowel sounds Skin General skin exam: no rashes or lesions noted Neuro General: patient oriented x3 and no focal motor deficits Extrem General: Yes full ROM Psych Appearance: grossly normal Results AMB Hemoglobin A1c AMB Hemoglobin A1c 6.9 % Last Edit by BILL Pang on 09/25/23 09:50 Results Reviewed Results Reviewed: Laboratory Last Values Hgb A1c (Clinic) 6.9 % (4.0-6.0) H 09/25/23 09:38 Assessment and Plan Assessment & Plan (1) Physical exam: Code(s): Z00.00 - Encounter for general adult medical examination without abnormal findings Plan: Repeat in a year. (2) Seronegative rheumatoid arthritis: Code(s): M06.00 - Rheumatoid arthritis without rheumatoid factor, unspecified site Plan: Continue Enbrel. Follow-up with rheumatology. (3) Moderate recurrent major depression: Code(s): F33.1 - Major depressive disorder, recurrent, moderate Plan: Continue counseling. (4) Diabetes mellitus: Code(s): E11.9 - Type 2 diabetes mellitus without complications Qualifiers: Diabetes mellitus type: type 2 Diabetes mellitus shelter insulin use: without terminal superintendent use Diabetes mellitus complication status: with hyperglycemia Qualified Code(s): E11.65 - Type 2 diabetes mellitus with hyperglycemia Plan: Continue metformin. A1c goal is equal or less than 7%. (5) Non-radiographic axial spondyloarthritis: Code(s): M46.80 - Other specified inflammatory spondylopathies, site unspecified Plan: Follow-up with rheumatology. Orders: Orders Vitamin D 25-OH Total Today E55.9 - Vitamin D deficiency, unspecified Lipid Panel Today E78.5 - Hyperlipidemia, unspecified Parathyroid Hormone Intact Today E21.3 - Hyperparathyroidism, unspecified Phosphorus Today E21.3 - Hyperparathyroidism, unspecified Calcium, 24 Hr Ur Today E21.3 - Hyperparathyroidism, unspecified AMB Hemoglobin A1c Today E11.65 - Type 2 diabetes mellitus with hyperglycemia Microalbumin, Random (w Creat) Today E11.9 - Type 2 diabetes mellitus without complications Comprehensive [place]. Panel Fast Today M06.00 - Rheumatoid arthritis without rheumatoid factor, unspecified site Calcium, Ionized Today E21.3 - Hyperparathyroidism, unspecified Referrals Open Access Screening Colonoscopy Referral Z12.11 - Encounter for screening for malignant neoplasm of colon Medications: Refilled amlodipine 10 mg PO DAILY 90 days 90 tabs 1RF metformin 500 mg PO BID 90 days 180 tabs 2RF E11.9 - Type 2 diabetes mellitus without complications lisinopril 40 mg PO DAILY 90 days 90 tabs 1RF sumatriptan succinate 25 mg PO ONCE 30 days PRN 9 tabs 6RF migraine headache I10 - Essential (primary) hypertension Coding Level of Care Code Est Pt Prev Care 40-64y(81484) Diagnoses Physical exam Z00.00 Seronegative rheumatoid arthritis M06.00 Moderate recurrent major depression F33.1 Type 2 diabetes mellitus with hyperglycemia, without long-term current use of insulin E11.65 Diabetes mellitus type: type 2 Diabetes mellitus shelter insulin use: without shelter use Diabetes mellitus complication status: with hyperglycemia Non-radiographic axial spondyloarthritis M46.80 Additional Codes JANETH-7 Assessment Billing - JANETH-7 Assessment Tool: JANETH-7 Assessment 25811 ([id number]) Time Spent (min) 35
[2023-09-25 10:21] VITALS: BP 160/98
== END 2023-09-25 10:17 | disposition home or self-care (01) ==
PROVIDERS: PCP Internal Medicine; Visit Provider Internal Medicine
DX: Z00.00 Encounter for general adult medical examination without abnormal findings (principal); M06.00 Rheumatoid arthritis without rheumatoid factor, unspecified site; F33.1 Major depressive disorder, recurrent, moderate; E11.65 Type 2 diabetes mellitus with hyperglycemia; M46.80 Other specified inflammatory spondylopathies, site unspecified
CPT/HCPCS: 83036; 99396

== ENCOUNTER 2023-10-01 07:54 | Outpatient (REF) | payer OTHER, SELFPAY ==
[2023-10-01 09:24] LABS: Alanine Aminotransferase 31 U/L (0-40); Albumin Level 4.3 g/dL (3.5-5.0); Alkaline Phosphatase 97 U/L (39-117); Anion Gap 14 (12-20); Aspartate Amino Transferase 23 U/L (5-37); Bilirubin Total 0.8 mg/dL (0.0-1.0); Blood Urea Nitrogen 15 mg/dL (9-16); Calcium 9.4 mg/dL (8.4-10.2); Carbon Dioxide 22 mmol/L (22-29); Chloride 109 mmol/L (96-108); Cholesterol 204 mg/dL (<200); Estimated Glomerular Filt Rate > 60; Glucose Fasting 148 mg/dL (60-99); HDL Cholesterol 37 mg/dL (>40); LDL Cholesterol Calculated 132 mg/dL (<100); Phosphorus 2.9 mg/dL (2.7-4.5); Potassium 3.8 mmol/L (3.3-5.1); Sodium 141 mmol/L (135-145); Total Protein 7.1 g/dL (6.5-8.0); Triglycerides 177 mg/dL (<150)
[2023-10-01 09:25] LABS: Parathyroid Hormone Intact 105.9 pg/mL (8.7-77.1)
[2023-10-01 09:27] LABS: Creatinine Urine 184.81 mg/dL; Microalbum/Creatinine Ratio Ur 187.2 ug/mg cr (<30)
[2023-10-01 09:40] LABS: Vitamin D 25-OH Total 22.2 ng/mL (>30)
[2023-10-01 09:43] LABS: PSA,Total (Free>4and<10) 4.31 ng/mL (0.00-4.00)
[2023-10-02 10:39] LABS: Calcium, Ionized 5.2 mg/dL (4.7-5.5)
[2023-10-05 11:28] LABS: Free Prostate Spec Ag 0.9 ng/mL; Percent Free Prostate Spec Ag 22 % (calc) (>25); Prostate Specific Ag Total 4.1 ng/mL (< OR = 4.0)
== END 2023-10-01 07:55 | disposition home or self-care (01) ==
LOC: HO.LAB 07:54
PROVIDERS: Absent Provider Internal Medicine Rheumatology; PCP Internal Medicine; Visit Provider Internal Medicine
DX: Z12.5 Encounter for screening for malignant neoplasm of prostate (principal); E55.9 Vitamin D deficiency, unspecified; E11.9 Type 2 diabetes mellitus without complications; E21.3 Hyperparathyroidism, unspecified; E78.5 Hyperlipidemia, unspecified; M06.00 Rheumatoid arthritis without rheumatoid factor, unspecified site; R07.81 Pleurodynia; M79.7 Fibromyalgia; M46.80 Other specified inflammatory spondylopathies, site unspecified; M54.50 Low back pain, unspecified; Z79.60 Long term (current) use of unspecified immunomodulators and immunosuppressants
CPT/HCPCS: 36415; 80053; 80061; 82043; 82306; 82330; 82570; 83970; 84100; 84153; 84154; 99212

== ENCOUNTER 2023-10-01 08:46 | Outpatient (AMB) | payer OTHER, SELFPAY ==
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
[2023-10-01 09:07] VITALS: BP 130/84; PULSE 73; O2SAT 97; BMI 31.6
== END 2023-10-01 09:29 | disposition home or self-care (01) ==
PROVIDERS: PCP Internal Medicine; Visit Provider Nurse Practitioner Family
DX: R07.81 Pleurodynia (principal); M79.7 Fibromyalgia; M46.80 Other specified inflammatory spondylopathies, site unspecified; M54.50 Low back pain, unspecified; Z79.60 Long term (current) use of unspecified immunomodulators and immunosuppressants
CPT/HCPCS: 99214; G2211

== ENCOUNTER 2023-10-09 10:51 | Outpatient (AMB) | payer OTHER, SELFPAY ==
--- NOTE | 2023-10-09 10:52 | MHC.OFFWIV ---
Intake Vital Signs 10/09/23 10:53 Height 5 ft Weight 160 lb BMI 31.2 BP 140/90 H Blood Pressure Location Lt brachial Position Sitting Pulse 63 Pulse Source Pulse Oximeter Temp 97.8 F Temp Source Temporal Artery Scan Pulse Oximetry (%) 95 Oxygen Delivery Method Room Air Intake Visit Reasons: EP rt eye stye Intake Note: pt is here for right eye stye started saturday Patient Tobacco Use Status: Former Tobacco user Allergies celecoxib [From CELEBREX] Allergy (Mild, Verified 10/09/23 10:56) HIVES,ITCHING,RASH Do you need a note to return to daycare/school/sports/work: Yes HPI HPI Comments History of Present Illness Details Patient is a 58-year-old male complaining of a stye on his right eye x3 days. He states he has had 5 styes in both eyes over the last few months. He has not quite sure why they keep recurring. He does see [facility] but he has not seen them for this issue. He has tried warm compresses. [facility] Medical History (Updated 10/09/23 @ 11:17 by Sarah Beth Rodríguez PA-C) Hyperparathyroidism Long-term use of immunosuppressant medication History of substance abuse Right arm pain Moderate recurrent major depression Diabetes mellitus Erectile dysfunction Hypovitaminosis D Depression Migraines Essential hypertension Non-radiographic axial spondyloarthritis Surgical History Hx of colonoscopy History of orthopedic surgery History of carpal tunnel release History of arthroscopy of left shoulder History of appendectomy History of nasal surgery History of eye surgery History of hand surgery Family History Father Stroke Mother Hypertension Arthritis Osteoporosis Depression with anxiety Lung cancer Brother Cognitive developmental delay Psychiatric problem Mental health disorder Social History Housing: House Alcohol intake: former Patient Tobacco Use Status: Former Tobacco user Tobacco use type: Cigarette Cigarettes Per Day: 20 Years Smoked: 20 e-Cigarette/Vaping Use: Never Used Second Hand Smoke Exposure: No service: No Current occupational status: retired Cognitive needs: No Hearing needs: No Vision needs: Yes (Glasses) Review of Systems Const All systems reviewed & are unremarkable except as noted in HPI and below Physical Exam Vital Signs: Last Vital Signs Temp 97.8 F 10/09/23 10:53 Pulse 63 10/09/23 10:53 BP 140/90 H 10/09/23 10:53 Pulse Ox 95 10/09/23 10:53 Oxygen Delivery Method Room Air 10/09/23 10:53 BMI result Body Mass Index 31.2 Const General: cooperative, healthy appearing, comfortable, no acute distress and well developed Orientation/consciousness: patient oriented x3 Limitations: no limitations HEENT Head: Yes normal to inspection Eyes Visual Dexter: normal visual dexter by confrontation Alignment and Position: alignment normal Eyelids: Yes eyelid abnormality (right lower lid edema) Conjunctivae: conjunctivae normal Sclerae: sclerae normal Corneas: corneas normal EOM: EOMs intact bilaterally Neck Neck: Yes normal visual inspection and Yes full ROM Resp Effort & Inspection: normal respiratory effort and able to speak in complete sentences Skin General skin exam: no rashes or lesions noted Neuro General: patient oriented x3 Extrem General: Yes normal to inspection Assessment & Plan Assessment & Plan (1) Hordeolum externum left lower eyelid: Code(s): H00.015 - Hordeolum externum left lower eyelid Plan: Recommended multiple warm compresses throughout the day and stye ointment. If this does not improve/resolve the next few days, please follow-up with your ssrs developer. Plan see above Coding Level of Care Code Est Pt Level 2 (11684) Diagnoses Hordeolum externum left lower eyelid H00.015
[2023-10-09 10:53] VITALS: BP 140/90; PULSE 63; TEMP 36.6; O2SAT 95; BMI 31.2
== END 2023-10-09 11:20 | disposition home or self-care (01) ==
PROVIDERS: PCP Internal Medicine; Visit Provider Physician Assistant
DX: H00.015 Hordeolum externum left lower eyelid (principal)
CPT/HCPCS: 99212

== ENCOUNTER 2023-10-14 11:17 | Outpatient (REF) | payer OTHER, SELFPAY ==
[2023-10-15 16:43] LABS: Calcium, 24 Hr Urine 427 mg/24 h; Calcium/Creatinine Ratio 258 mg/g creat (30-210); Creatinine 24Hr Urine 1.66 g/24 h (0.50-2.15)
== END 2023-10-14 11:18 | disposition home or self-care (01) ==
LOC: HO.LNP 11:17
PROVIDERS: Visit Provider Internal Medicine
DX: E21.3 Hyperparathyroidism, unspecified (principal); R97.20 Elevated prostate specific antigen [PSA]; N40.1 Benign prostatic hyperplasia with lower urinary tract symptoms; R35.1 Nocturia
CPT/HCPCS: 81003; 82340; 99202

== ENCOUNTER 2023-10-14 13:09 | Outpatient (AMB) | payer OTHER, SELFPAY ==
--- NOTE | 2023-10-14 13:29 | A.OFFVIS_ITS ---
Intake Visit Reasons: Elevated PSA Intake Note: NEW Patient presents today to established treatment for Elevated PSA: Meds- None Allergies to Antibiotic- No Known Allergies Blood Thinner- None Ms Sql Dba Required: No Accompanied by: Self / Same As Patient Allergies celecoxib [From CELEBREX] Allergy (Mild, Verified 10/14/23 13:37) HIVES,ITCHING,RASH Medication List - Last Reconciled 10/14/23 by Claudette Ellison MD amlodipine 10 mg PO DAILY 90 days atorvastatin 20 mg PO BEDTIME 90 days baclofen 10 mg PO BID blood pressure monitor As directed blood sugar diagnostic (FreeStyle Test strips) used 1 test strip once a day blood sugar diagnostic (FreeStyle Lite Strips) use one strip once a day as directed blood-glucose meter (FreeStyle Lite Meter kit) use once a day as directed cholecalciferol (vitamin D3) 50 mcg (2 x 25 mcg (1,000 unit)) PO DAILY diclofenac sodium 1% (Arthritis Pain (diclofenac)) 2 grams topical TID PRN etanercept (Enbrel SureClick) 50 mg subcut QWEEK fluocinonide 0.05% 1 appl topical BID gabapentin 100 - 300 mg (1 - 3 x 100 mg) PO BEDTIME PRN lancets (FreeStyle Lancets) use 1 lancet once a day lisinopril 40 mg PO DAILY 90 days metformin 500 mg PO BID 90 days sumatriptan succinate 25 mg PO ONCE PRN 30 days tamsulosin (Flomax) 0.4 mg PO BEDTIME tramadol 50 mg PO BID PRN HPI Comments Details: Ry is here for [facility] evaluation for elevated PSA. He has obstructive BPH symptoms. AUA symptom score 21. PSA 10/01/23--4.31 ng/mL. I have discussed PSA is a blood test, prostate specific antigen and is an enzyme secreted by the prostate gland. Elevated PSA may be due to multiple conditions including prostate inflammatory condition, enlarged prostate or prostate cancer. Will start flomax daily and repeat PSA in 4 months. [facility] Medical History Hyperparathyroidism Long-term use of immunosuppressant medication History of substance abuse Right arm pain Moderate recurrent major depression Diabetes mellitus Erectile dysfunction Hypovitaminosis D Depression Migraines Essential hypertension Non-radiographic axial spondyloarthritis Surgical History Hx of colonoscopy History of orthopedic surgery History of carpal tunnel release History of arthroscopy of left shoulder History of appendectomy History of nasal surgery History of eye surgery History of hand surgery Family History Father Stroke Mother Hypertension Arthritis Osteoporosis Depression with anxiety Lung cancer Brother Cognitive developmental delay Psychiatric problem Mental health disorder Social History Housing: House Alcohol intake: former Patient Tobacco Use Status: Former Tobacco user Tobacco use type: Cigarette Cigarettes Per Day: 20 Years Smoked: 20 e-Cigarette/Vaping Use: Never Used Second Hand Smoke Exposure: No service: No Current occupational status: retired Cognitive needs: No Hearing needs: No Vision needs: Yes (Glasses) Review of Systems Const All systems reviewed & are unremarkable except as noted in HPI and below Reports no additional complaints Eyes Reports no additional complaints ENT Reports no additional complaints Card Reports no additional complaints Resp Reports no additional complaints GI Reports no additional complaints Reports as per HPI Musc Reports no additional complaints Skin/Breast Reports system reviewed and no additional complaints, except as documented Neuro Reports no additional complaints Psych Reports no additional complaints Endo Reports no additional complaints Lalit/Lymph Reports no additional complaints Aller/Immun Reports no additional complaints Physical Exam Const General: healthy appearing, no acute distress and well developed Orientation/consciousness: patient oriented x3 HEENT Head: Yes normocephalic and Yes atraumatic Eyes Conjunctivae: conjunctivae normal Neck Neck: Yes normal visual inspection Chest Chest palpation & inspection: normal inspection of the chest Resp Effort & Inspection: normal respiratory effort Cardio Rate: regular rate GI Inspection: Yes normal to inspection Palpation (GI): Soft to palpation Other: Prostate Exam: Mildly enlarged smooth, no firm nodules palpated Skin General skin exam: no rashes or lesions noted Neuro General: patient oriented x3 Extrem General: No pedal edema Psych Appearance: grossly normal Affect: normal affect Results AMB Urinalysis, Automated UA Leukoctes 0 Pop/uL Last Edit by BILL Mina on 10/14/23 13:39 UA Nitrite Negative Last Edit by BILL Mina on 10/14/23 13:39 UA Urobilinogen 0.2 mg/dL Last Edit by BILL Mina on 10/14/23 13:3 9 UA Protein 0 mg/dL Last Edit by BILL Mina on 10/14/23 13:39 UA pH 6.0 Last Edit by BILL Mina on 10/14/23 13:39 UA Blood 0 Vin/uL Last Edit by Chase Donaldson Charly on 10/14/23 13:39 UA Specific [place] 1.010 Last Edit by BILL Mina on 10/14/23 13: 39 UA Ketone Negative Last Edit by BILL Mina on 10/14/23 13:39 UA Bilirubin 0 mg/dL Last Edit by Chase Donaldson Charly on 10/14/23 13:39 UA Glucose 0 mg/dL Last Edit by Chase Donaldson Charly on 10/14/23 13:39 Quality Reporting (2019) Benign Prostatic Hyperplasia ([facility] 771) AUA symptom score: 21 Results Reviewed Results Reviewed: Laboratory Last Values Urine pH (Auto) 6.0 10/14/23 13:38 Specific [place] (Auto) 1.010 10/14/23 13:38 Urine Protein (Auto) 0 mg/dL 10/14/23 13:38 Glucose (UA)(Auto) 0 mg/dL 10/14/23 13:38 Urine Ketones (Auto) Negative 10/14/23 13:38 Urine Blood (Auto) 0 Vin/uL 10/14/23 13:38 Urine Nitrite (Auto) Negative 10/14/23 13:38 Urine Bilirubin (Auto) 0 mg/dL 10/14/23 13:38 Urine Urobilinogen (Auto) 0.2 mg/dL 10/14/23 13:38 Leukocyte Esterase (Auto) 0 Pop/uL 10/14/23 13:38 Date of Service: 02/08/23 EXAMINATION: MR ABDOMEN WITHOUT AND WITH CONTRAST CLINICAL INFORMATION: Abnormal levels of serum enzymes. COMPARISON: Abdominal ultrasound 04/20/2021 TECHNIQUE: MRI of the abdomen before and after the IV administration of 7.5 mL of Gadavist was obtained using routine sequences. FINDINGS: LUNG BASES: The visualized lung bases are unremarkable. KIDNEYS AND URETERS: Unremarkable. GALLBLADDER: Unremarkable. LIVER AND BILIARY TREE: A subcentimeter benign-appearing right hepatic lobe cyst. Significant loss of signal on opposed phase imaging compatible with hepatic steatosis. No intra or extrahepatic biliary duct dilatation. PANCREAS: A 1.1 cm cyst in the pancreatic neck. No solid components or pancreatic duct dilatation. This appears to communicate with the main pancreatic duct. SPLEEN: Unremarkable ADRENAL GLANDS: Unremarkable GASTROINTESTINAL TRACT: Unremarkable. LYMPH NODES: No lymphadenopathy. VASCULAR: Unremarkable ABDOMINAL WALL: Unremarkable. OSSEOUS STRUCTURES: Unremarkable. IMPRESSION: 1. Significant hepatic steatosis. 2. A 1.1 cm cyst in the pancreatic neck which appears to communicate with the main pancreatic duct, possibly a small side branch IPMN. No solid components or pancreatic duct dilatation. Per ACR white paper on management of incidental pancreatic cysts, recommend annual follow-up contrast enhanced MRCP for 5 years, and if no clinically significant interval growth imaging can be decreased to every other year x2 to document 9 years total stability. Assessment & Plan Assessment & Plan (1) Elevated PSA: Code(s): R97.20 - Elevated prostate specific antigen [PSA] Category: Medical (2) BPH loc w urin obs/LUTS: Code(s): N40.1 - Benign prostatic hyperplasia with lower urinary tract symptoms Category: Medical (3) Nocturia: Code(s): R35.1 - Nocturia Category: Medical Plan flomax, repeat PSA in 4 months Orders: Orders AMB Urinalysis Automated 10/14/23 Z13.9 - Encounter for screening, unspecified PSA,Total (Free>4and<10) 14 Weeks R97.20 - Elevated prostate specific antigen [PSA] Medications: New tamsulosin (Flomax) 0.4 mg PO BEDTIME 30 caps 3RF Patient Instructions: The patient had an opportunity to ask questions regarding treatment plan. The patient expressed understanding and agreement with the above treatment plan. The patient is aware they should contact our office by phone for worsening of their current condition or the appearance of new symptoms. Compliance is encouraged with any medications and followup testing that is ordered. It is a privilege to be allowed the opportunity to participate in the urologic care of your patient. If you have any questions or concerns regarding treatment for the above conditions please do not hesitate to contact me. The office telephone contact is [phone]. This note is constructed in part using voice recognition software. While every effort has been made to ensure accuracy box sealing machine feeder errors may have been included. Yours sincerely, Claudette Ellison MD Coding Level of Care Code New Pt Level 4 (24600) Diagnoses Elevated PSA R97.20 BPH loc w urin obs/LUTS N40.1 Nocturia R35.1 AUA Symptom Score AUA Incomplete emptying - It does not feel like I empty my bladder all the way.: 3 - About half the time Frequency - I have to go again less than two hours after I finish urinating.: 2 - Less than half the time Intermittency - I stop and start again several times when I urinate.: 4 - More than half the time Urgency - It is hard to wait when I have to urinate.: 4 - More than half the time Weak stream - I have a weak urinary stream.: 4 - More than half the time Straining - I have to push or strain to begin urination.: 1 - Less than 1 time in 5 Nocturia - I get up to urinate after I go to bed until the time I get up in the morning.: 3 times AUA Symptom Score: 21 Source: Devon WAGNER, Peter PORTILLO Jr, [place] MP, et al, and the Measurement Committee of the [employer]. The [employer] symptom index for benign prostatic hyperplasia. J Urol. 1992; 148: 9497-4135. Copyright 1992 [employer]
== END 2023-10-14 14:25 | disposition home or self-care (01) ==
PROVIDERS: PCP Internal Medicine; Visit Provider Urology
DX: R97.20 Elevated prostate specific antigen [PSA] (principal); N40.1 Benign prostatic hyperplasia with lower urinary tract symptoms; R35.1 Nocturia
CPT/HCPCS: 99204

== ENCOUNTER 2023-11-14 14:59 | Outpatient (AMB) | payer OTHER, SELFPAY ==
[2023-11-14 15:11] VITALS: BP 154/68; PULSE 68; BMI 31.6
--- NOTE | 2023-11-14 15:11 | MHC.OFFVIS ---
Vital Signs 11/14/23 15:11 Height 5 ft Weight 161 lb 9.581 oz BMI 31.6 BP 154/68 H Blood Pressure Location Lt brachial Position Sitting Pulse 68 Pulse Source Pulse Oximeter Intake Visit Reasons: Hyperparathyroidism-confirmed Intake Note: New patient present today for Hyperparathyroidism office visit. Roadability Machine Operator Required: Yes Roadability Machine Operator Language: Electrical Tester Services: Roadability Machine Operator Present Roadability Machine Operator Name: [id number] Castellon Accompanied by: Self / Same As Patient Allergies celecoxib [From CELEBREX] Allergy (Mild, Verified 11/14/23 15:15) HIVES,ITCHING,RASH HPI Comments Details: 58 YO M with PMHx hypercalcemia who is seen in consultation at the request of PCP for Hypercalcemia. First noted to have high calcium couple of yrs . Not Currently using Calcium supplement . Takes 2000 IU of Vitamin D daily.Not taking Vitamin D Not Currently using HCTZ. Kidney stones: No Osteoporosis: No History of Dovray use: No Biotin use: No Family history of high calcium or kidney stones: No Renal imaging: yes DXA: Labs: [facility] Medical History Hyperparathyroidism Long-term use of immunosuppressant medication History of substance abuse Right arm pain Moderate recurrent major depression Diabetes mellitus Erectile dysfunction Hypovitaminosis D Depression Migraines Essential hypertension Non-radiographic axial spondyloarthritis Surgical History Hx of colonoscopy History of orthopedic surgery History of carpal tunnel release History of arthroscopy of left shoulder History of appendectomy History of nasal surgery History of eye surgery History of hand surgery Family History Father Stroke Mother Hypertension Arthritis Osteoporosis Depression with anxiety Lung cancer Brother Cognitive developmental delay Psychiatric problem Mental health disorder Social History Housing: House Alcohol intake: former Patient Tobacco Use Status: Former Tobacco user Tobacco use type: Cigarette Cigarettes Per Day: 20 Years Smoked: 20 e-Cigarette/Vaping Use: Never Used Second Hand Smoke Exposure: No service: No Current occupational status: retired Cognitive needs: No Hearing needs: No Vision needs: Yes (Glasses) Physical Exam Const Other: This is a 58-year-old male with a history of hyperparathyroidism. Differential diagnosis includes secondary hyperparathyroidism due to vitamin-D deficiency or primary hyperparathyroidism with hypercalcemia being masked by low vitamin-D. Plan is to replete the vitamin-D by giving 4000 IU per day of vitamin-D and rechecking calcium, albumin, PTH, 25 hydroxy vitamin-D in 2-3 months' time. If patient becomes hypercalcemic, at that point might consider sending for parathyroid exploration considering the hypercalciuria Assessment & Plan Assessment & Plan (1) Vitamin D deficiency: Code(s): E55.9 - Vitamin D deficiency, unspecified Category: Medical Plan: See plan for hyperparathyroidism (2) Hyperparathyroidism: Code(s): E21.3 - Hyperparathyroidism, unspecified Category: Medical Plan: This is a 58-year-old male with a history of elevated PTH. Differential diagnosis includes secondary hyperparathyroidism versus primary hyperparathyroidism with coexistent vitamin-D deficiency masking hypercalcemia . He did have elevated urinary calcium which could suggest calcium leak as another differential diagnosis causing secondary hyperparathyroidism or primary hyperparathyroidism driving hypercalciuria The plan is to resume vitamin-D 3 2000 IU and recheck calcium, albumin, PTH, 25 hydroxy vitamin-D as well as 24 hour urine for calcium and creatinine in 2 and half months. There is no history of kidney stones on ultrasound or osteoporosis but patient has clinical picture consistent with primary hyperparathyroidism, may be a candidate for parathyroid exploration considering the hypercalciuria per Orders: Orders Vitamin D 25-OH Total 10 Weeks E55.9 - Vitamin D deficiency, unspecified Albumin Level 10 Weeks E55.9 - Vitamin D deficiency, unspecified Calcium, 24 Hr Ur 10 Weeks E55.9 - Vitamin D deficiency, unspecified Creatinine, 24 Hr Group 10 Weeks E55.9 - Vitamin D deficiency, unspecified Calcium 10 Weeks E55.9 - Vitamin D deficiency, unspecified Calcium, Ionized 10 Weeks E55.9 - Vitamin D deficiency, unspecified Parathyroid Hormone Intact 10 Weeks E55.9 - Vitamin D deficiency, unspecified Coding Level of Care Code New Pt Level 4 (98323) Diagnoses Vitamin D deficiency E55.9 Hyperparathyroidism E21.3
== END 2023-11-14 15:48 | disposition home or self-care (01) ==
PROVIDERS: PCP Internal Medicine; Visit Provider Internal Medicine Endocrinology, Diabetes & Metabolism
DX: E55.9 Vitamin D deficiency, unspecified (principal); E21.3 Hyperparathyroidism, unspecified
CPT/HCPCS: 99204

== ENCOUNTER → 2023-11-14 14:59 | Outpatient (BNVA) | payer OTHER, SELFPAY | PROVIDERS: PCP Internal Medicine; Visit Provider Internal Medicine Endocrinology, Diabetes & Metabolism | DX: E55.9 Vitamin D deficiency, unspecified (principal); E21.3 Hyperparathyroidism, unspecified | CPT/HCPCS: 99202 ==

== ENCOUNTER 2023-12-13 14:59 | Outpatient (AMB) | payer OTHER, SELFPAY ==
--- NOTE | 2023-12-13 15:03 | A.OFFVIS_ITS ---
Vital Signs 12/13/23 15:08 Height 5 ft Weight 162 lb 7.691 oz BMI 31.7 BP 142/80 H Blood Pressure Location Rt brachial Position Sitting Pulse 52 Pulse Source Pulse Oximeter Pulse Oximetry (%) 94 Oxygen Delivery Method Room Air Intake Visit Reasons: SPA/CM Intake Note: Patient presents for SPA. Real Estate Manager Required: Yes Real Estate Manager Services: Real Estate Manager Present Real Estate Manager Name: Cleopatra [id number] Information Interpreted: non-clinical & clinical Allergies celecoxib [From CELEBREX] Allergy (Mild, Verified 12/13/23 15:07) HIVES,ITCHING,RASH Medication List - Last Reconciled 12/13/23 by Ganga Rojas MD amlodipine 10 mg PO DAILY 90 days atorvastatin 20 mg PO BEDTIME 90 days baclofen 10 mg PO BID blood pressure monitor As directed blood sugar diagnostic (FreeStyle Test strips) used 1 test strip once a day blood sugar diagnostic (FreeStyle Lite Strips) use one strip once a day as directed blood-glucose meter (FreeStyle Lite Meter kit) use once a day as directed cholecalciferol (vitamin D3) 50 mcg (2 x 25 mcg (1,000 unit)) PO DAILY diclofenac sodium 1% (Arthritis Pain (diclofenac)) 2 grams topical TID PRN Enbrel SureClick (etanercept) 50 mg subcut QWEEK NS fluocinonide 0.05% 1 appl topical BID gabapentin 100 - 300 mg (1 - 3 x 100 mg) PO BEDTIME PRN lancets (FreeStyle Lancets) use 1 lancet once a day lisinopril 40 mg PO DAILY 90 days metformin 500 mg PO BID 90 days sumatriptan succinate 25 mg PO ONCE PRN 30 days tamsulosin (Flomax) 0.4 mg PO BEDTIME tramadol 50 mg PO BID PRN HPI Comments Details: This is a 58-year-old male with 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 States that he is doing about the same overall. He remains on Enbrel 50 mg weekly. States that he gets some weakness and aching of his left upper extremity. Minimal pain of the left side of the neck. Doing well otherwise. Has not had any swollen joints. [facility] Medical History (Updated 12/13/23 @ 15:32 by Ganga Rojas MD) Hyperparathyroidism Long-term use of immunosuppressant medication History of substance abuse Right arm pain Moderate recurrent major depression Diabetes mellitus Erectile dysfunction Hypovitaminosis D Depression Migraines Essential hypertension Non-radiographic axial spondyloarthritis Surgical History Hx of colonoscopy History of orthopedic surgery History of carpal tunnel release History of arthroscopy of left shoulder History of appendectomy History of nasal surgery History of eye surgery History of hand surgery Family History Father Stroke Mother Hypertension Arthritis Osteoporosis Depression with anxiety Lung cancer Brother Cognitive developmental delay Psychiatric problem Mental health disorder Social History Housing: House Alcohol intake: former Patient Tobacco Use Status: Former Tobacco user Tobacco use type: Cigarette Cigarettes Per Day: 20 Years Smoked: 20 e-Cigarette/Vaping Use: Never Used Second Hand Smoke Exposure: No service: No Current occupational status: retired Cognitive needs: No Hearing needs: No Vision needs: Yes (Glasses) Review of Systems Musc Reports myalgias, Reports arthralgias and Reports muscle weakness Physical Exam Vital Signs: Last Vital Signs Pulse 52 12/13/23 15:08 BP 142/80 H 12/13/23 15:08 Pulse Ox 94 12/13/23 15:08 Oxygen Delivery Method Room Air 12/13/23 15:08 BMI result Body Mass Index 31.7 Const General: cooperative, healthy appearing and comfortable Nutritional Appearance: obese Orientation/consciousness: patient oriented x3 Limitations: no limitations HEENT Head: Yes normocephalic and Yes atraumatic Mouth: moist mucous membranes Resp Effort & Inspection: normal respiratory effort and able to speak in complete sentences Auscultation: clear to auscultation bilaterally Cardio Rate: regular rate Rhythm: regular rhythm Skin General skin exam: no rashes or lesions noted Neuro General: patient oriented x3 Extrem Other: No active synovitis Normal nailfold capillaroscopy Normal range of motion of hands, elbows, shoulders without pain Negative empty can test and Speed's test bilaterally Negative straight leg raise test bilaterally Negative Cleve test bilaterally Archie test 10-14.2 cm Assessment & Plan Assessment & Plan (1) Non-radiographic axial spondyloarthritis: Comment: + 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 Enbrel 06/2019 effective Code(s): M46.80 - Other specified inflammatory spondylopathies, site unspecified Category: Medical Plan: This is a 58-year-old male with 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 Doing very well on Enbrel 50 mg weekly, no signs sugg estive of inflammatory peripheral or axial arthritis. Continue Enbrel 50 mg weekly Labs before next visit in 4 months (2) Fibromyalgia: Code(s): M79.7 - Fibromyalgia Category: Medical Plan: Discussed management of fibromyalgia with patient. Is a noninflammatory, non- autoimmune central afferent processing disorder leading to a diffuse pain syndrome. I suggested that patient try to address his underlying psychiatric issues, anxiety/depression. I suggested evaluation by a therapist and/or a psychiatrist. \ Try to follow sleep hygiene practices. Consider a referral for a sleep study by his PCP to rule out RAQUEL. Consider low-impact exercises such as walking, swimming, aqua therapy stretching, yoga. (3) Long-term use of immunosuppressant medication: Code(s): Z79.60 - superintendent container terminal (current) use of unspecified immunomodulators and immunosuppressants Category: Medical Plan: Side effects of Enbrel were discussed with the patient in detail including increased risk of infection, demyelinating disease, reactivation of latent TB, possible increased risk of solid and skin tumors. Patient fully aware. Advised patient to seek medical care SUJIT if patient has an infection and advised patient to stop the medication until the infection is resolved. Plan I spent 24 minutes reviewing patient's chart, evaluating patient, ordering diagnostic workup, counseling patient and documenting in the chart Orders: Orders Comprehensive Met. Panel 4 Months M46.80 - Other specified inflammatory spondylopathies, site unspecified Erythrocyte Sedimentation Rate 4 Months M46.80 - Other specified inflammatory spondylopathies, site unspecified Hepatitis A,B,C Profile 4 Months Z11.59 - Encounter for screening for other viral diseases T Spot TB 4 Months Z11.7 - Encounter for testing for latent tuberculosis infection Complete Blood Count Auto Diff 4 Months M46.80 - Other specified inflammatory spondylopathies, site unspecified C Reactive Protein 4 Months M46.80 - Other specified inflammatory spondylopathies, site unspecified Coding Level of Care Code Est Pt Level 4 (99963) Diagnoses Non-radiographic axial spondyloarthritis M46.80 Fibromyalgia M79.7 Long-term use of immunosuppressant medication Z79.60
[2023-12-13 15:08] VITALS: BP 142/80; PULSE 52; O2SAT 94; BMI 31.7
== END 2023-12-13 15:30 | disposition home or self-care (01) ==
PROVIDERS: PCP Internal Medicine; Visit Provider Student in an Organized Health Care Education/Training Program
DX: M46.80 Other specified inflammatory spondylopathies, site unspecified (principal); M79.7 Fibromyalgia; Z79.60 Long term (current) use of unspecified immunomodulators and immunosuppressants
CPT/HCPCS: 99214

== ENCOUNTER → 2023-12-13 14:59 | Outpatient (BNVA) | payer OTHER, SELFPAY | PROVIDERS: PCP Internal Medicine; Visit Provider Student in an Organized Health Care Education/Training Program | DX: M46.80 Other specified inflammatory spondylopathies, site unspecified (principal); M79.7 Fibromyalgia; Z79.60 Long term (current) use of unspecified immunomodulators and immunosuppressants | CPT/HCPCS: 99212 ==

== ENCOUNTER 2024-01-29 07:26 | Outpatient (REF) | payer OTHER, SELFPAY ==
[2024-01-29 07:54] LABS: MANUAL DIFF FLAG NO
[2024-01-29 08:11] LABS: Basophils Percent Auto 0.4 % (0-2); Eosinophils Absolute Auto 0.1 X10*3/uL (0.0-0.4); Eosinophils Percent Auto 1.2 % (0-4); Hematocrit 44.8 % (42.0-52.0); Hemoglobin 15.7 g/dl (14.0-18.0); Imm Gran Abs Auto 0.03 X10*3/uL (0.00-0.03); Imm Gran Pct Auto 0.4 % (0.0-0.4); Lymphocytes Percent Auto 26.8 % (20-40); Mean Corpuscular Hemoglobin 29.5 pg (27.0-33.0); Mean Corpuscular Volume 84.2 fL (80.0-98.0); Mean Platelet Volume 9.7 fL (9.4-12.4); Monocytes Absolute Auto 0.7 X10*3/uL (0.1-1.2); Monocytes Percent Auto 9.5 % (2-11); Neutrophils Absolute Auto 4.6 x10*3/uL (2.0-8.3); Neutrophils Percent Auto 61.7 % (45-73); Platelet Count 264 X10*3/uL (160-400); Red Blood Count 5.32 X10*6/uL (4.60-5.80); Red Cell Distribution Width 12.3 % (11.0-16.0); White Blood Count 7.4 X10*3/uL (4.8-10.8)
[2024-01-29 08:36] LABS: Alanine Aminotransferase 40 U/L (0-40); Albumin Level 4.4 g/dL (3.5-5.0); Alkaline Phosphatase 109 U/L (39-117); Anion Gap 14 (12-20); Aspartate Amino Transferase 34 U/L (5-37); Bilirubin Total 0.9 mg/dL (0.0-1.0); Blood Urea Nitrogen 12 mg/dL (9-16); C Reactive Protein 1.52 mg/dL (< or = 0.50); Calcium 9.9 mg/dL (8.4-10.2); Carbon Dioxide 25 mmol/L (22-29); Chloride 106 mmol/L (96-108); Cholesterol 196 mg/dL (<200); Estimated Glomerular Filt Rate > 60; Glucose Fasting 137 mg/dL (60-99); HDL Cholesterol 37 mg/dL (>40); LDL Cholesterol Calculated 133 mg/dL (<100); Parathyroid Hormone Intact 104.6 pg/mL (8.7-77.1); Potassium 3.7 mmol/L (3.3-5.1); Sodium 141 mmol/L (135-145); Total Protein 7.4 g/dL (6.5-8.0); Triglycerides 132 mg/dL (<150)
[2024-01-29 08:52] LABS: PSA,Total (Free>4and<10) 4.41 ng/mL (0.00-4.00); Vitamin D 25-OH Total 28.4 ng/mL (>30)
[2024-01-29 09:03] LABS: Erythrocyte Sedimentation Rate 14 MM/HR (0-15)
[2024-01-30 13:29] LABS: Free Prostate Spec Ag 0.8 ng/mL; Percent Free Prostate Spec Ag 19 % (calc) (>25); Prostate Specific Ag Total 4.2 ng/mL (< OR = 4.0)
[2024-01-30 14:19] LABS: Calcium, Ionized 5.2 mg/dL (4.7-5.5)
== END 2024-01-29 07:27 | disposition home or self-care (01) ==
LOC: HO.LAB 07:26
PROVIDERS: Urology; Absent Provider Internal Medicine Endocrinology, Diabetes & Metabolism; PCP Internal Medicine; Referring Provider Nurse Practitioner Family; Visit Provider Internal Medicine
DX: E21.3 Hyperparathyroidism, unspecified (principal); E78.5 Hyperlipidemia, unspecified; E55.9 Vitamin D deficiency, unspecified; E11.9 Type 2 diabetes mellitus without complications; M46.80 Other specified inflammatory spondylopathies, site unspecified; Z79.60 Long term (current) use of unspecified immunomodulators and immunosuppressants; R97.20 Elevated prostate specific antigen [PSA]; Z12.5 Encounter for screening for malignant neoplasm of prostate
CPT/HCPCS: 36415; 80053; 80061; 82306; 82330; 83970; 84153; 84154; 85025; 85652; 86140

== ENCOUNTER 2024-01-30 08:10 | Outpatient (AMB) | payer OTHER, SELFPAY ==
--- NOTE | 2024-01-30 08:11 | A.OFFVIS_ITS ---
Intake Visit Reasons: 4m/PSA Intake Note: Patient presents to the office today for a 4 month/PSA Meds- Tamsulosin Allergies to Antibiotic- No Known Allergies Blood Thinner- None Rn Clinical Trials Required: Yes Rn Clinical Trials Language: [place] Accompanied by: Self / Same As Patient Allergies celecoxib [From CELEBREX] Allergy (Mild, Verified 02/19/24 13:01) HIVES,ITCHING,RASH Medication List - Last Reconciled 01/30/24 by Claudette Ellison MD amlodipine 10 mg PO DAILY 90 days atorvastatin 20 mg PO BEDTIME 90 days baclofen 10 mg PO BID blood pressure monitor As directed blood sugar diagnostic (FreeStyle Test strips) used 1 test strip once a day blood sugar diagnostic (FreeStyle Lite Strips) use one strip once a day as directed blood-glucose meter (FreeStyle Lite Meter kit) use once a day as directed cholecalciferol (vitamin D3) 50 mcg (2 x 25 mcg (1,000 unit)) PO DAILY ciprofloxacin HCl 500 mg PO BID diclofenac sodium 1% (Arthritis Pain (diclofenac)) 2 grams topical TID PRN Enbrel SureClick (etanercept) 50 mg subcut QWEEK NS fluocinonide 0.05% 1 appl topical BID gabapentin 100 - 300 mg (1 - 3 x 100 mg) PO BEDTIME PRN lancets (FreeStyle Lancets) use 1 lancet once a day lisinopril 40 mg PO DAILY 90 days metformin 500 mg PO BID 90 days sumatriptan succinate 25 mg PO ONCE PRN 30 days tamsulosin (Flomax) 0.4 mg PO BEDTIME tramadol 50 mg PO BID PRN HPI Comments Details: 01/30/24--telehealth follow-up elevated PSA. Discussed repeat PSA 01/29/2024 is 4.41 ng/mL. Discussed further evaluation with prostate biopsy. 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 He has obstructive BPH symptoms. AUA symptom score 21. PSA 10/01/23--4.31 ng/mL. I have discussed PSA is a blood test, prostate specific antigen and is an enzyme secreted by the prostate gland. Elevated PSA may be due to multiple conditions including prostate inflammatory condition, enlarged prostate or prostate cancer. Will start flomax daily and repeat PSA in 4 months. [facility] Medical History Hyperparathyroidism Long-term use of immunosuppressant medication History of substance abuse Right arm pain Moderate recurrent major depression Diabetes mellitus Erectile dysfunction Hypovitaminosis D Depression Migraines Essential hypertension Non-radiographic axial spondyloarthritis Surgical History Hx of colonoscopy History of orthopedic surgery History of carpal tunnel release History of arthroscopy of left shoulder History of appendectomy History of nasal surgery History of eye surgery History of hand surgery Family History Father Stroke Mother Hypertension Arthritis Osteoporosis Depression with anxiety Lung cancer Brother Cognitive developmental delay Psychiatric problem Mental health disorder Social History Housing: House Alcohol intake: former Patient Tobacco Use Status: Former Tobacco user Tobacco use type: Cigarette Cigarettes Per Day: 20 Years Smoked: 20 e-Cigarette/Vaping Use: Never Used Second Hand Smoke Exposure: No service: No Current occupational status: retired Cognitive needs: No Hearing needs: No Vision needs: Yes (Glasses) Results AMB Urinalysis, Automated UA Leukoctes 0 Pop/uL Last Edit by Jodi Poole CMA on 01/30/24 08:35 UA Nitrite Negative Last Edit by Jodi Poole CMA on 01/30/24 08:35 UA Urobilinogen 0.2 mg/dL Last Edit by Jodi Poole CMA on 01/30/24 08:35 UA Protein 100 mg/dL Last Edit by Jodi Poole CMA on 01/30/24 08:35 UA pH 6.0 Last Edit by Jodi Poole CMA on 01/30/24 08:35 UA Blood 0 Vin/uL Last Edit by Jodi Poole CMA on 01/30/24 08:35 UA Specific [place] 1.025 Last Edit by Jodi Poole CMA on 01/30/24 08:35 UA Ketone Negative Last Edit by Jodi Poole CMA on 01/30/24 08:35 UA Bilirubin 1 mg/dL Last Edit by Jodi Poole CMA on 01/30/24 08:35 UA Glucose 0 mg/dL Last Edit by Jodi Poole CMA on 01/30/24 08:35 Telehealth Telehealth Telehealth Platform: Telephone Location of provider rendering services: practice address Location of patient: address on file Patient Identification confirmed using: Name, : Yes Telehealth method: voice only Patient verbally consented to treatment: Yes Patient verbally consented to billing insurance company: Yes Patient informed of any privacy concerns related to visit: Yes Minutes spent on Phone/Video with Pt.: 18 Results Reviewed Results Reviewed: Laboratory Last Values Urine pH (Auto) 6.0 01/30/24 08:16 Specific [place] (Auto) 1.025 01/30/24 08:16 Urine Protein (Auto) 100 mg/dL 01/30/24 08:16 Glucose (UA)(Auto) 0 mg/dL 01/30/24 08:16 Urine Ketones (Auto) Negative 01/30/24 08:16 Urine Blood (Auto) 0 Vin/uL 01/30/24 08:16 Urine Nitrite (Auto) Negative 01/30/24 08:16 Urine Bilirubin (Auto) 1 mg/dL 01/30/24 08:16 Urine Urobilinogen (Auto) 0.2 mg/dL 01/30/24 08:16 Leukocyte Esterase (Auto) 0 Pop/uL 01/30/24 08:16 Assessment & Plan Assessment & Plan (1) Elevated PSA: Code(s): R97.20 - Elevated prostate specific antigen [PSA] Category: Medical (2) BPH loc w urin obs/LUTS: Code(s): N40.1 - Benign prostatic hyperplasia with lower urinary tract symptoms Category: Medical Plan Sched prostate bx in OR Orders: Orders AMB Urinalysis Automated 01/30/24 N40.1 - Benign prostatic hyperplasia with lower urinary tract symptoms Medications: New ciprofloxacin HCl start 2 days prior to prostate biopsy 500 mg PO BID 10 tabs 0RF Patient Instructions: The patient had an opportunity to ask questions regarding treatment plan. The patient expressed understanding and agreement with the above treatment plan. The patient is aware they should contact our office by phone for worsening of their current condition or the appearance of new symptoms. Compliance is encouraged with any medications and followup testing that is ordered. It is a privilege to be allowed the opportunity to participate in the urologic care of your patient. If you have any questions or concerns regarding treatment for the above conditions please do not hesitate to contact me. The office telephone contact is [phone]. This note is constructed in part using voice recognition software. While every effort has been made to ensure accuracy recreation activities coordinator errors may have been included. Yours sincerely, Claudette Ellison MD Coding Level of Care Code Tele Est Pt Level 4 (00155) Diagnoses Elevated PSA R97.20 BPH loc w urin obs/LUTS N40.1
== END 2024-01-30 16:30 | disposition home or self-care (01) ==
PROVIDERS: PCP Internal Medicine; Visit Provider Urology
DX: R97.20 Elevated prostate specific antigen [PSA] (principal); N40.1 Benign prostatic hyperplasia with lower urinary tract symptoms
CPT/HCPCS: 99442

== ENCOUNTER → 2024-01-30 08:10 | Outpatient (BNVA) | payer OTHER, SELFPAY | PROVIDERS: PCP Internal Medicine; Visit Provider Urology | DX: N40.1 Benign prostatic hyperplasia with lower urinary tract symptoms (principal); R97.20 Elevated prostate specific antigen [PSA] | CPT/HCPCS: 81003 ==

== ENCOUNTER 2024-02-12 07:52 | Outpatient (AMB) | payer OTHER, SELFPAY ==
--- NOTE | 2024-02-12 08:00 | A.OFFPC_ITS ---
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 Required: No Accompanied by: Self / Same As Patient Allergies celecoxib [From CELEBREX] Allergy (Mild, Verified 02/12/24 08:20) HIVES,ITCHING,RASH Medication List - Last Reconciled 02/12/24 by Linda Arambula MD amlodipine 10 mg PO DAILY 90 days atorvastatin 20 mg PO BEDTIME 90 days baclofen 10 mg PO BID blood pressure monitor As directed blood sugar diagnostic (FreeStyle Test strips) used 1 test strip once a day blood sugar diagnostic (FreeStyle Lite Strips) use one strip once a day as directed blood-glucose meter (FreeStyle Lite Meter kit) use once a day as directed cholecalciferol (vitamin D3) 50 mcg (2 x 25 mcg (1,000 unit)) PO DAILY ciprofloxacin HCl 500 mg PO BID diclofenac sodium 1% (Arthritis Pain (diclofenac)) 2 grams topical TID PRN Enbrel SureClick (etanercept) 50 mg subcut QWEEK NS fluocinonide 0.05% 1 appl topical BID gabapentin 100 - 300 mg (1 - 3 x 100 mg) PO BEDTIME PRN lancets (FreeStyle Lancets) use 1 lancet once a day lisinopril 40 mg PO DAILY 90 days metformin 500 mg PO BID 90 days sumatriptan succinate 25 mg PO ONCE PRN 30 days tamsulosin (Flomax) 0.4 mg PO BEDTIME tramadol 50 mg PO BID PRN Tobacco use date assessed: 09/25/23 Dental Screening Dental Screen Date: 09/25/23 HPI HPI Comments History of Present Illness Details This is a 59 year male with diabetes mellitus type 2 hypertension, hyperlipidemia and moderate recurrent major depression that comes today complaining of sacral pain that started 02/02/2024 after having a fall from a chair that break. A1c within goal. Blood pressure elevated but he did not took his amlodipine. Blood pressure will be recheck in 3 weeks by nurse navigator. LDL not on goal and I will increase statins. Depression has been stable on follows with counseling. [facility] Medical History (Updated 02/12/24 @ 08:27 by Linda Arambula MD) Hyperparathyroidism Long-term use of immunosuppressant medication History of substance abuse Right arm pain Moderate recurrent major depression Diabetes mellitus Erectile dysfunction Hypovitaminosis D Depression Migraines Essential hypertension Non-radiographic axial spondyloarthritis Surgical History Hx of colonoscopy History of orthopedic surgery History of carpal tunnel release History of arthroscopy of left shoulder History of appendectomy History of nasal surgery History of eye surgery History of hand surgery Family History Father Stroke Mother Hypertension Arthritis Osteoporosis Depression with anxiety Lung cancer Brother Cognitive developmental delay Psychiatric problem Mental health disorder Social History Housing: House Alcohol intake: former Patient Tobacco Use Status: Former Tobacco user Tobacco use type: Cigarette Cigarettes Per Day: 20 Years Smoked: 20 e-Cigarette/Vaping Use: Never Used Second Hand Smoke Exposure: No service: No Current occupational status: retired Cognitive needs: No Hearing needs: No Vision needs: Yes (Glasses) Questionnaire Thrive Questionnaire Date Thrive assessed: 09/25/23 Are you currently unemployed and looking for a job?: No JANETH-7 AMB Questionnaire JANETH-7 Date JANETH - 7 assessed: 09/25/23 Source: Developed by Drs. Toy Blair, Tatianna Pina, Diego Jimenes and colleagues, with an educational lissette from [employer]. Review of Systems Const All systems reviewed & are unremarkable except as noted in HPI and below Card Denies chest pain at rest, Denies chest pain with activity, Denies edema, Denies irregular heart rhythm, Denies claudication, Denies dyspnea, Denies dyspnea on exertion, Denies orthopnea, Denies paroxysmal nocturnal dyspnea and Denies slow heart rate Resp Denies cough, Denies dyspnea and Denies dyspnea on exertion GI Denies abdominal pain, Denies change in bowel habits, Denies excessive flatus, Denies nausea and Denies vomiting Musc Reports back pain Physical exam (Primary Care) Vital Signs: Last Vital Signs BP 170/80 H 02/12/24 09:55 BMI result Body Mass Index 30.5 Tobacco/Smoking Status: Tobacco use Status Tobacco use date assessed 09/25/23 02/12/24 08:05 Patient Tobacco Use Status Former Tobacco user 02/12/24 08:05 Tobacco use type Cigarette 02/12/24 08:05 e-Cigarette/Vaping Use Never Used 02/12/24 08:05 Thrive Assessment: Date of Thrive Assessment Date Thrive assessed 09/25/23 02/12/24 08:05 Resp Effort & Inspection: normal respiratory effort Auscultation: clear to auscultation bilaterally Cardio Jugular venous distension: no JVD Rate: regular rate Rhythm: regular rhythm Heart sounds: S1 normal heart sound present and S2 normal heart sound present Back/Spine/Pelvis Thoracic/Lumbar Spine: lumbar spinal tenderness and straight leg raise positive bilateral at 40 degrees Extrem General: Yes full ROM Office Procedures Flu Questionnaire Does the patient have a severe egg allergy?: No Does the patient have severe life threatening allergies?: No Does the patient have a fever or illness today?: No Has the patient ever had Guillain-Wathena Syndrome?: No Has the patient ever had any past reaction to a flu shot?: No Results AMB Hemoglobin A1c AMB Hemoglobin A1c 6.2 % Last Edit by BILL Pang on 02/12/24 08:3 0 Immunizations Fluarix Triv 3787-9280 (PF) 45 mcg (15 mcg x 3)/0.5 mL IM syringe Performing Provider: Linda Arambula MD [place] [facility] Administered by: BILL Pang on 02/12/24 08:38 Dose Route Admin Location Dispensed Lot Number Expiration Date [facility] Certified Breastfeeding Educator 0.5 mL IM Left Deltoid 0.5 mL [id number] 11/02/24 [id number] Six Month Smiles VIS Given Date VIS Provided VIS Publication Date 02/12/24 Single Vaccine 20 Eligibility Eligibility Date Funding Source Not [facility] Eligible 02/12/24 Private Results Reviewed Results Reviewed: Laboratory Last Values Hgb A1c (Clinic) 6.2 % (4.0-6.0) H 02/12/24 08:00 Coding Level of Care Code Est Pt Level 4 (28879) Complex EM visit Add On G2211 Diagnoses Sacral pain M53.3 Type 2 diabetes mellitus with hyperglycemia, without long-term current use of insulin E11.65 Diabetes mellitus type: type 2 Diabetes mellitus senior care insulin use: without long term care pharmacist use Diabetes mellitus complication status: with hyperglycemia Moderate recurrent major depression F33.1 Essential hypertension I10 Hyperlipidemia with target LDL less than 70 E78.5 Time Spent (min) 22 Assessment & Plan Assessment & Plan (1) Sacral pain: Code(s): M53.3 - Sacrococcygeal disorders, not elsewhere classified Category: Medical Plan: X-ray ordered. (2) Diabetes mellitus: Code(s): E11.9 - Type 2 diabetes mellitus without complications Category: Medical Qualifiers: Diabetes mellitus type: type 2 Diabetes mellitus senior care insulin use: without long term care pharmacist use Diabetes mellitus complication status: with hyperglycemia Qualified Code(s): E11.65 - Type 2 diabetes mellitus with hyperglycemia Plan: Continue metformin. A1c goal is equal or less than 7%. (3) Moderate recurrent major depression: Code(s): F33.1 - Major depressive disorder, recurrent, moderate Category: Medical Plan: Follow-up with counseling. (4) Essential hypertension: Code(s): I10 - Essential (primary) hypertension Category: Medical Plan: Continue lisinopril. Be compliant with amlodipine. Blood pressure goal is equal or less than 130/80. (5) Hyperlipidemia with target LDL less than 70: Code(s): E78.5 - Hyperlipidemia, unspecified Category: Medical Plan: Continue statins. Repeat lipid panel. LDL goal is less than 70. Orders: Orders Influenza [id number] Immunization Today Z23 - Encounter for immunization Microalbumin, Random (w Creat) 4 Months R80.9 - Proteinuria, unspecified Vitamin D 25-OH Total 4 Months E55.9 - Vitamin D deficiency, unspecified Comprehensive [place]. Panel Fast 4 Months E11.65 - Type 2 diabetes mellitus with hyperglycemia AMB Hemoglobin A1c Today E11.65 - Type 2 diabetes mellitus with hyperglycemia XR sacroiliac joint 1-2V Today M53.3 - Sacrococcygeal disorders, not elsewhere classified Lipid Panel 4 Months E78.5 - Hyperlipidemia, unspecified Medications: New atorvastatin 40 mg PO BEDTIME 90 tabs 1RF 90 days Refilled amlodipine 10 mg PO DAILY 90 tabs 1RF 90 days Discontinued atorvastatin Discontinued Reason: Patient Completed Course 20 mg PO BEDTIME 90 days 90 tabs 1RF E78.5 - Hyperlipidemia, unspecified
[2024-02-12 08:01] VITALS: BP 170/82; BMI 30.5
[2024-02-12 09:55] VITALS: BP 170/80
== END 2024-02-12 08:39 | disposition home or self-care (01) ==
PROVIDERS: PCP Internal Medicine; Visit Provider Internal Medicine
DX: M53.3 Sacrococcygeal disorders, not elsewhere classified (principal); E11.65 Type 2 diabetes mellitus with hyperglycemia; F33.1 Major depressive disorder, recurrent, moderate; I10 Essential (primary) hypertension; E78.5 Hyperlipidemia, unspecified; Z23 Encounter for immunization

== ENCOUNTER → 2024-02-12 07:52 | Outpatient (BNVA) | payer OTHER, SELFPAY | PROVIDERS: PCP Internal Medicine; Visit Provider Internal Medicine | DX: Z23 Encounter for immunization (principal); E11.65 Type 2 diabetes mellitus with hyperglycemia; M53.3 Sacrococcygeal disorders, not elsewhere classified; F33.1 Major depressive disorder, recurrent, moderate; I10 Essential (primary) hypertension; E78.5 Hyperlipidemia, unspecified | CPT/HCPCS: 83036; 90471; 90656; 99212 ==

== ENCOUNTER 2024-02-13 14:59 | Outpatient (AMB) | payer OTHER, SELFPAY ==
--- NOTE | 2024-02-13 15:03 | A.OFFVIS_ITS ---
Vital Signs 02/13/24 15:06 Height 5 ft Weight 156 lb 8.451 oz BMI 30.6 BP 142/80 H Blood Pressure Location Rt brachial Position Sitting Pulse 78 Pulse Source Pulse Oximeter Intake Visit Reasons: f/u hyperparathyroidism/CONFIRMED Intake Note: Patient presents today to re-established treatment for Hyperparathyroidism: Ambulance Assistant Required: Yes Ambulance Assistant Language: Director Of Hospitality Services: Ambulance Assistant Present Ambulance Assistant Name: BILL Mina/HILLARY BOX Accompanied by: Self / Same As Patient Allergies celecoxib [From CELEBREX] Allergy (Mild, Verified 02/13/24 15:05) HIVES,ITCHING,RASH HPI Comments Details: 59 YO M with PMHx hypercalcemia who is seen in f/u for Hypercalcemia. He was last seen by Dr. Simpson and myself 3 months ago. At that time he was recommended to take 4000 IU use of vitamin-D daily and to repeat his blood work. He did not increase his vitamin-D and has been taking 2000 IU use and for the past several weeks somewhat inconsistently First noted to have high calcium couple of yrs . Not Currently using HCTZ. Kidney stones: No Osteoporosis: No History of Brainard use: No Biotin use: No Family history of high calcium or kidney stones: No Renal imaging: yes 04/25 no calculi DXA: [facility] Medical History Hyperparathyroidism Long-term use of immunosuppressant medication History of substance abuse Right arm pain Moderate recurrent major depression Diabetes mellitus Erectile dysfunction Hypovitaminosis D Depression Migraines Essential hypertension Non-radiographic axial spondyloarthritis Surgical History Hx of colonoscopy History of orthopedic surgery History of carpal tunnel release History of arthroscopy of left shoulder History of appendectomy History of nasal surgery History of eye surgery History of hand surgery Family History Father Stroke Mother Hypertension Arthritis Osteoporosis Depression with anxiety Lung cancer Brother Cognitive developmental delay Psychiatric problem Mental health disorder Social History Housing: House Alcohol intake: former Patient Tobacco Use Status: Former Tobacco user Tobacco use type: Cigarette Cigarettes Per Day: 20 Years Smoked: 20 e-Cigarette/Vaping Use: Never Used Second Hand Smoke Exposure: No service: No Current occupational status: retired Cognitive needs: No Hearing needs: No Vision needs: Yes (Glasses) Physical Exam Vital Signs: Last Vital Signs Pulse 78 02/13/24 15:06 BP 142/80 H 02/13/24 15:06 BMI result Body Mass Index 30.6 Const Other: Absence of Cushingoid features. Absence of acromegalic features. Neck exam reveals nl size thyroid about 15 gms. No thyroid nodules palpable. Heart S1 S2, Reg R/R. No M/R G. Skin exam reveals absence of vitiligo or acanthosis nigricans. No edema Results Reviewed Results Reviewed: Laboratory Tests 10/01/23 01/29/24 08:08 07:53 Albumin 4.4 PTH Intact 105.9 H Laboratory Tests 10/01/23 01/29/24 08:08 07:53 Calcium 9.4 D 9.9 Ionized Calcium 5.2 5.2 25-OH Vitamin D Total 22.2 L 28.4 L PTH Intact 104.6 H Assessment & Plan Assessment & Plan (1) Hyperparathyroidism: Code(s): E21.3 - Hyperparathyroidism, unspecified Category: Medical Plan: This is a 59-year-old male with a history of hyperparathyroidism. Differential diagnosis includes secondary hyperparathyroidism due to vitamin-D deficiency or primary hyperparathyroidism with hypercalcemia being masked by low vitamin-D. Plan is to replete the vitamin-D by giving 4000 IU per day of vitamin-D and rechecking calcium, albumin, PTH, 25 hydroxy vitamin-D in 3 months' time at lab [facility]. If patient becomes hypercalcemic, at that point might consider sending for parathyroid exploration considering the hypercalciuria Case discussed with Dr. Simpson Orders: Orders Albumin Level 3 Months E21.3 - Hyperparathyroidism, unspecified Calcium 3 Months E21.3 - Hyperparathyroidism, unspecified Parathyroid Hormone Intact 3 Months E21.3 - Hyperparathyroidism, unspecified Vitamin D 25-OH Total 3 Months E21.3 - Hyperparathyroidism, unspecified Calcium, Ionized 3 Months E21.3 - Hyperparathyroidism, unspecified Medications: New cholecalciferol (vitamin D3) 50 mcg PO BID 60 caps 3RF Discontinued cholecalciferol (vitamin D3) Discontinued Reason: Doctor's Order 50 mcg (2 x 25 mcg (1,000 unit)) PO DAILY 180 caps 1RF E55.9 - Vitamin D deficiency, unspecified Coding Level of Care Code Est Pt Level 3 (53328) Diagnoses Hyperparathyroidism E21.3 Time Spent (min) 20 Comment Time spent reviewing labs/provider notes, face to face, chart doc
[2024-02-13 15:06] VITALS: BP 142/80; PULSE 78; BMI 30.6
== END 2024-02-13 15:36 | disposition home or self-care (01) ==
PROVIDERS: PCP Internal Medicine; Visit Provider Nurse Practitioner Adult Health
DX: E21.3 Hyperparathyroidism, unspecified (principal)
CPT/HCPCS: 99213

== ENCOUNTER → 2024-02-13 14:59 | Outpatient (BNVA) | payer OTHER, SELFPAY | PROVIDERS: PCP Internal Medicine; Visit Provider Nurse Practitioner Adult Health | DX: E21.3 Hyperparathyroidism, unspecified (principal) | CPT/HCPCS: 99212 ==

== ENCOUNTER 2024-02-17 10:25 | Outpatient (REF) | payer OTHER, SELFPAY ==
--- NOTE | ~2024-02-17 | XR_ITS ---
EXAMINATION: XR SACROILIAC JOINTS 3 VIEWS CLINICAL INFORMATION: Sacrococcygeal disorders, not elsewhere classified M53.3. COMPARISON: XR Sacroiliac joint 11/13/2021 TECHNIQUE: 3 views of the sacroiliac joints FINDINGS: Bones and soft tissues are normal. No fracture. Alignment is anatomic. Sacroiliac joint spaces are well-maintained without erosions or surrounding sclerosis. XR/XR sacroiliac joint 1-2V IMPRESSION: Normal sacroiliac joints. Electronically signed by: Asad Lopez MD 04/21/2024 11:20 AM RENU
[2024-02-17 12:35] LABS: Creatinine, mg/dL 87.71
[2024-02-17 14:32] LABS: Creatinine, 24Hr Urine 1.5 G/Day (1.0-2.0); Total Volume 24 Hour Urine 1750 mL
[2024-02-18 12:38] LABS: Calcium, 24 Hr Urine 362 mg/24 h; Calcium/Creatinine Ratio 230 mg/g creat (30-210); Creatinine 24Hr Urine 1.58 g/24 h (0.50-2.15)
== END 2024-02-17 10:26 | disposition home or self-care (01) ==
LOC: HO.XRAY 10:25
PROVIDERS: Internal Medicine Endocrinology, Diabetes & Metabolism; PCP Internal Medicine; Visit Provider Internal Medicine
DX: M53.3 Sacrococcygeal disorders, not elsewhere classified (principal); E55.9 Vitamin D deficiency, unspecified
CPT/HCPCS: 72200; 82340; 82570

== ENCOUNTER 2024-02-19 12:51 | Outpatient (AMB) | payer OTHER, SELFPAY ==
--- NOTE | 2024-02-19 12:56 | A.OFFVIS_ITS ---
Vital Signs 02/19/24 12:59 Height 5 ft Weight 154 lb 5.177 oz BMI 30.1 BP 122/70 Blood Pressure Location Lt brachial Position Sitting Pulse 83 Intake Visit Reasons: f/u pancreatic cyst Intake Note: Ry presents in the office as a follow up pancreatic cyst. CC: He states he has a biopsy coming up. HE states that he is feeling okay and not having any concerns at this time. 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 Has had elevated LFTs persistently since 2019 ALT>AST. Previously had been attributed to MTX which has been stopped since 2020. Was taking Enbrel which was stopped last month. No OTC/CAM use. Last etOH use 6 years ago. No fam hx of chronic liver diseases. US 2020 showed steatosis and also ? GB polyps. Last colo was 5 years ago but was told he had poor prep and he had to repeat but does not recall getting a follow up appt. 02/19/24: Pt was lost to follow up. Was called by our office to make this follow up as he is also due for panc cyst surveillance. Otherwise, has no actue GI issues including abd pain, N,V,D. No blood in stool. No unitnentional weight loss. MRI 02/2023: 1. Significant hepatic steatosis. 2. A 1.1 cm cyst in the pancreatic neck which appears to communicate with the main pancreatic duct, possibly a small side branch IPMN. No solid components or pancreatic duct dilatation. Per ACR white paper on management of incidental pancreatic cysts, recommend annual follow-up contrast enhanced MRCP for 5 years, and if no clinically significant interval growth imaging can be decreased to every other year x2 to document 9 years total stability. PFSH Medical History Hyperparathyroidism Long-term use of immunosuppressant medication History of substance abuse Right arm pain Moderate recurrent major depression Diabetes mellitus Erectile dysfunction Hypovitaminosis D Depression Migraines Essential hypertension Non-radiographic axial spondyloarthritis Surgical History Hx of colonoscopy History of orthopedic surgery History of carpal tunnel release History of arthroscopy of left shoulder History of appendectomy History of nasal surgery History of eye surgery History of hand surgery Family History Father Stroke Mother Hypertension Arthritis Osteoporosis Depression with anxiety Lung cancer Brother Cognitive developmental delay Psychiatric problem Mental health disorder Social History Housing: House Alcohol intake: former Patient Tobacco Use Status: Former Tobacco user Tobacco use type: Cigarette Cigarettes Per Day: 20 Years Smoked: 20 e-Cigarette/Vaping Use: Never Used Second Hand Smoke Exposure: No service: No Current occupational status: retired Cognitive needs: No Hearing needs: No Vision needs: Yes (Glasses) Physical Exam Vital Signs: Last Vital Signs Pulse 83 02/19/24 12:59 BP 122/70 02/19/24 12:59 BMI result Body Mass Index 30.1 Assessment & Plan Assessment & Plan (1) Pancreatic cyst: Code(s): K86.2 - Cyst of pancreas Category: Medical Plan: Has 1 cm cyst in panc body without any red flags. MRI with MRCP protocol ordered. (2) Colon cancer screening: Code(s): Z12.11 - Encounter for screening for malignant neoplasm of colon Category: Medical Plan: Overdue for colo. Did not show up for colo booked last year. Prep instrucitons reviewed and handed out. Again urged and educated the need for colo. PEG sent to pharmacy. Follow up after colo Medications: New peg 3350-electrolytes 236-22.74-6.74 -5.86 gram (Golytely) as per split prep instructions, until fecal effluent is clear 240 mL PO Q10M 4,000 mL 0RF colonoscopy Discontinued ciprofloxacin HCl start 2 days prior to prostate biopsy Discontinued Reason: Patient no longer taking 500 mg PO BID 10 tabs 0RF Coding Level of Care Code Est Pt Level 4 (04996) Diagnoses Pancreatic cyst K86.2 Colon cancer screening Z12.11
[2024-02-19 12:59] VITALS: BP 122/70; PULSE 83; BMI 30.1
== END 2024-02-19 14:13 | disposition home or self-care (01) ==
PROVIDERS: PCP Internal Medicine; Visit Provider Internal Medicine
DX: K86.2 Cyst of pancreas (principal)
CPT/HCPCS: 99214

== ENCOUNTER → 2024-02-19 12:51 | Outpatient (BNVA) | payer OTHER, SELFPAY | PROVIDERS: PCP Internal Medicine; Visit Provider Internal Medicine | DX: K86.2 Cyst of pancreas (principal); R79.89 Other specified abnormal findings of blood chemistry | CPT/HCPCS: 99212 ==

== ENCOUNTER → 2024-02-28 08:30 | Outpatient (BNVA) | payer OTHER, SELFPAY | PROVIDERS: PCP Internal Medicine ==

== ENCOUNTER → 2024-03-09 08:31 | Outpatient (BNV) | payer OTHER, SELFPAY | PROVIDERS: PCP Internal Medicine; Visit Provider Radiology Diagnostic Radiology | DX: K82.4 Cholesterolosis of gallbladder (principal) | CPT/HCPCS: 74181 ==

== ENCOUNTER 2024-03-09 08:42 | Outpatient (REF) | payer OTHER, SELFPAY | END 2024-03-09 08:43 | disposition home or self-care (01) | LOC: HO.MRI 08:42 | PROVIDERS: PCP Internal Medicine; Visit Provider Internal Medicine | DX: K82.4 Cholesterolosis of gallbladder (principal); K86.2 Cyst of pancreas | CPT/HCPCS: 74181 ==

== ENCOUNTER 2024-03-13 07:59 | Outpatient (REF) | payer OTHER, SELFPAY ==
--- NOTE | 2024-03-13 08:54 | W.PM.OPN ---
Operative Note Operative Note Date of Service: 03/13/24 Narrative: PreOperative Diagnosis:? ? Elevated PSA Post Operative Diagnosis:??Elevated PSA Procedure:?1. Transrectal ultrasound guided biopsy of the prostate 12 core 2. Transrectal ultrasound measurement of prostate 3. Transrectal ultrasound guided pudendal nerve block Surgeon:?Dr Claudette Ellison Anesthesia:? Local Indications for procedure: Elevated PSA Procedure: Preoperative antibiotics confirmed. After informed consent was verified the patient was placed on the procedure table in left lateral position. Patient identity confirmed. Safety pause time-out performed. Digital rectal exam performed to dilate rectal sphincter, iodine mixed with lubricant jelly 30 cc placed per rectum. Ultrasound probe was placed per rectum. The prostate was visualized. The prostate was measured width 4.82 cm, height 3.02 cm, length 4.70 cm with a volume of 35.8 mL. An ultrasound guided pudendal nerve block was performed using 10 cc of 1% lidocaine. A 12 core biopsy was performed from the left base, left mid, left apex and right base, mid, apex 2 biopsies from each section. The ultrasound probe was removed and digital palpation of the prostate for 1-2 minutes for hemostasis was performed. The patient tolerated the procedure well. Complications: None
[2024-03-13] MEDS: Lidocaine HCl 1 % MPF 5 ML VIAL 15 ML SUBCUT (09:13)
== END 2024-03-13 08:00 | disposition home or self-care (01) ==
LOC: HO.US 07:59
PROVIDERS: PCP Internal Medicine; Visit Provider Urology
DX: R97.20 Elevated prostate specific antigen [PSA] (principal)
CPT/HCPCS: 55700; 76942; 88305; 88344; J2003

== ENCOUNTER → 2024-03-13 07:59 | Outpatient (BNV) | payer OTHER, SELFPAY | PROVIDERS: PCP Internal Medicine; Visit Provider Urology | DX: R97.20 Elevated prostate specific antigen [PSA] (principal) | CPT/HCPCS: 55700; 76872; 76942 ==

== ENCOUNTER 2024-03-25 08:37 | Outpatient (REF) | payer OTHER, SELFPAY ==
[2024-03-25 09:45] LABS: Parathyroid Hormone Intact 88.8 pg/mL (8.7-77.1)
[2024-03-25 10:01] LABS: Vitamin D 25-OH Total 31.6 ng/mL (>30)
[2024-03-25 10:08] LABS: Alanine Aminotransferase 46 U/L (0-40); Albumin Level 4.4 g/dL (3.5-5.0); Alkaline Phosphatase 93 U/L (39-117); Anion Gap 15 (12-20); Aspartate Amino Transferase 40 U/L (5-37); Bilirubin Total 0.8 mg/dL (0.0-1.0); Blood Urea Nitrogen 13 mg/dL (9-16); Calcium 8.9 mg/dL (8.4-10.2); Carbon Dioxide 21 mmol/L (22-29); Chloride 105 mmol/L (96-108); Estimated Glomerular Filt Rate > 60; Glucose Random 253 mg/dL (60-115); Potassium 3.4 mmol/L (3.3-5.1); Sodium 138 mmol/L (135-145); Total Protein 6.9 g/dL (6.5-8.0)
[2024-03-28 11:14] LABS: Calcium, Ionized 5.1 mg/dL (4.7-5.5)
== END 2024-03-25 08:38 | disposition home or self-care (01) ==
LOC: HO.LAB 08:37
PROVIDERS: PCP Internal Medicine; Referring Provider Internal Medicine Endocrinology, Diabetes & Metabolism; Visit Provider Nurse Practitioner Family
DX: E55.9 Vitamin D deficiency, unspecified (principal); M46.80 Other specified inflammatory spondylopathies, site unspecified; Z79.60 Long term (current) use of unspecified immunomodulators and immunosuppressants
CPT/HCPCS: 36415; 80053; 82306; 82330; 83970

== ENCOUNTER 2024-03-26 15:17 | Outpatient (AMB) | payer OTHER, SELFPAY ==
--- NOTE | 2024-03-25 21:28 | MHC.OFFVIS ---
Intake Visit Reasons: Prostate bx results Intake Note: Patient is present for PROSTATE BX RESULTS Urology Medication:NONE Antibiotic Allergy:NONE Blood Thinner:NONE Administrative And Program Specialist Required: No Allergies celecoxib [From CELEBREX] Allergy (Mild, Verified 03/26/24 15:24) HIVES,ITCHING,RASH Medication List - Last Reconciled 03/26/24 by Claudette Ellison MD amlodipine 10 mg PO DAILY 90 days atorvastatin 40 mg PO BEDTIME 90 days baclofen 10 mg PO BID blood pressure monitor As directed blood sugar diagnostic (FreeStyle Test strips) used 1 test strip once a day blood sugar diagnostic (FreeStyle Lite Strips) use one strip once a day as directed blood-glucose meter (FreeStyle Lite Meter kit) use once a day as directed cholecalciferol (vitamin D3) 50 mcg PO BID diclofenac sodium 1% (Arthritis Pain (diclofenac)) 2 grams topical TID PRN Enbrel SureClick (etanercept) 50 mg subcut QWEEK NS fluocinonide 0.05% 1 appl topical BID gabapentin 100 - 300 mg (1 - 3 x 100 mg) PO BEDTIME PRN lancets (FreeStyle Lancets) use 1 lancet once a day levofloxacin 500 mg PO DAILY 3 days levofloxacin 500 mg PO DAILY 2 days lisinopril 40 mg PO DAILY 90 days metformin 500 mg PO BID 90 days oxycodone 5 mg PO Q6-8H PRN 2 days peg 3350-electrolytes 236-22.74-6.74 -5.86 gram (Golytely) 240 mL PO Q10M sumatriptan succinate 25 mg PO ONCE PRN 30 days tamsulosin (Flomax) 0.4 mg PO BEDTIME tramadol 50 mg PO BID PRN HPI Comments Details: 03/25/24--Ry in being followed for elevated PSA. PSA -01/06/24--4.41 ng/mL. He is s/p transrectal ultrasound guided prostate biopsy on 03/13/24. He states he is doing well since procedure. I have discussed results. Prostate biopsy pathology--Collected: 03/13/24--Diagnosis--Left base lateral: Atypical small acinar proliferation, suspicious for adenocarcinoma (3+ 3=6). Plan- MRI prostate in 4 months, and repeat PSA. Review of chart: 01/30/24--telehealth follow-up elevated PSA. Discussed repeat PSA 01/29/2024 is 4.41 ng/mL. Discussed further evaluation with prostate biopsy. 10/14/23--Ry is here for [employer] SAL[employer] evaluation for elevated PSA. He has obstructive BPH symptoms. AUA symptom score 21. PSA 10/01/23--4.31 ng/mL. I have discussed PSA is a blood test, prostate specific antigen and is an enzyme secreted by the prostate gland. Elevated PSA may be due to multiple conditions including prostate inflammatory condition, enlarged prostate or prostate cancer. Will start flomax daily and repeat PSA in 4 months. [facility] Medical History Hyperparathyroidism Long-term use of immunosuppressant medication History of substance abuse Right arm pain Moderate recurrent major depression Diabetes mellitus Erectile dysfunction Hypovitaminosis D Depression Migraines Essential hypertension Non-radiographic axial spondyloarthritis Surgical History Hx of colonoscopy History of orthopedic surgery History of carpal tunnel release History of arthroscopy of left shoulder History of appendectomy History of nasal surgery History of eye surgery History of hand surgery Family History Father Stroke Mother Hypertension Arthritis Osteoporosis Depression with anxiety Lung cancer Brother Cognitive developmental delay Psychiatric problem Mental health disorder Social History Housing: House Alcohol intake: former Patient Tobacco Use Status: Former Tobacco user Tobacco use type: Cigarette Cigarettes Per Day: 20 Years Smoked: 20 e-Cigarette/Vaping Use: Never Used Second Hand Smoke Exposure: No service: No Current occupational status: retired Cognitive needs: No Hearing needs: No Vision needs: Yes (Glasses) Review of Systems Const All systems reviewed & are unremarkable except as noted in HPI and below Reports no additional complaints Eyes Reports no additional complaints ENT Reports no additional complaints Card Reports no additional complaints Resp Reports no additional complaints GI Reports no additional complaints Reports as per HPI Musc Reports no additional complaints Skin/Breast Reports system reviewed and no additional complaints, except as documented Neuro Reports no additional complaints Psych Reports no additional complaints Endo Reports no additional complaints Lalit/Lymph Reports no additional complaints Aller/Immun Reports no additional complaints Results Reviewed Results Reviewed: Prostate Biopsy-Collected: 03/13/24 [place]: [place] Received: 03/13/24 Diagnosis A: Left base lateral: Atypical small acinar proliferation, suspicious for adenocarcinoma (3+ 3=6). B: Left base medial: Benign prostatic tissue; negative for malignancy. C: Left mid lateral: Benign prostatic tissue; negative for malignancy. D: Left mid medial: Benign prostatic tissue; negative for malignancy. E: Left apex lateral: Benign prostatic tissue; negative for malignancy. F: Left apex medial: Benign prostatic tissue; negative for malignancy. G: Right base lateral: Benign prostatic tissue; negative for malignancy. H: Right base medial: Benign prostatic tissue; negative for malignancy. I: Right mid lateral: Benign prostatic tissue; negative for malignancy. J: Right mid medial: Benign prostatic tissue; negative for malignancy. K: Right apex lateral: Benign prostatic tissue; negative for malignancy. L: Right apex medial: Benign prostatic tissue; negative for malignancy. Comment: Patchy inflammation and atrophy are also present. Clinical History Elevated PSA, BPH Date of Service: 02/08/23 EXAMINATION: MR ABDOMEN WITHOUT AND WITH CONTRAST CLINICAL INFORMATION: Abnormal levels of serum enzymes. COMPARISON: Abdominal ultrasound 04/20/2021 TECHNIQUE: MRI of the abdomen before and after the IV administration of 7.5 mL of Gadavist was obtained using routine sequences. FINDINGS: LUNG BASES: The visualized lung bases are unremarkable. KIDNEYS AND URETERS: Unremarkable. GALLBLADDER: Unremarkable. LIVER AND BILIARY TREE: A subcentimeter benign-appearing right hepatic lobe cyst. Significant loss of signal on opposed phase imaging compatible with hepatic steatosis. No intra or extrahepatic biliary duct dilatation. PANCREAS: A 1.1 cm cyst in the pancreatic neck. No solid components or pancreatic duct dilatation. This appears to communicate with the main pancreatic duct. SPLEEN: Unremarkable ADRENAL GLANDS: Unremarkable GASTROINTESTINAL TRACT: Unremarkable. LYMPH NODES: No lymphadenopathy. VASCULAR: Unremarkable ABDOMINAL WALL: Unremarkable. OSSEOUS STRUCTURES: Unremarkable. IMPRESSION: 1. Significant hepatic steatosis. 2. A 1.1 cm cyst in the pancreatic neck which appears to communicate with the main pancreatic duct, possibly a small side branch IPMN. No solid components or pancreatic duct dilatation. Per ACR white paper on management of incidental pancreatic cysts, recommend annual follow-up contrast enhanced MRCP for 5 years, and if no clinically significant interval growth imaging can be decreased to every other year x2 to document 9 years total stability. Assessment & Plan Assessment & Plan (1) Atypical small acinar proliferation of prostate: Code(s): N42.32 - Atypical small acinar proliferation of prostate Category: Medical (2) Elevated PSA: Code(s): R97.20 - Elevated prostate specific antigen [PSA] Category: Medical (3) Long-term use of immunosuppressant medication: Code(s): Z79.60 - long term care administrator (current) use of unspecified immunomodulators and immunosuppressants Category: Medical Plan PSA and MRI prostate in 4 months Orders: Orders AMB Urinalysis Automated Today Z13.9 - Encounter for screening, unspecified MR pelvis wo/w con 4 Months N42.32 - Atypical small acinar proliferation of prostate, R97.20 - Elevated prostate specific antigen [PSA], Z79.60 - long term care administrator (current) use of unspecified immunomodulators and immunosuppressants Patient Instructions: The patient had an opportunity to ask questions regarding treatment plan. The patient expressed understanding and agreement with the above treatment plan. The patient is aware they should contact our office by phone for worsening of their current condition or the appearance of new symptoms. Compliance is encouraged with any medications and followup testing that is ordered. It is a privilege to be allowed the opportunity to participate in the urologic care of your patient. If you have any questions or concerns regarding treatment for the above conditions please do not hesitate to contact me. The office telephone contact is [phone]. This note is constructed in part using voice recognition software. While every effort has been made to ensure accuracy water attendant errors may have been included. Yours sincerely, Claudette Ellison MD Coding Level of Care Code Est Pt Level 4 (59449) Diagnoses Atypical small acinar proliferation of prostate N42.32 Elevated PSA R97.20 Long-term use of immunosuppressant medication Z79.60
== END 2024-03-26 15:42 | disposition home or self-care (01) ==
PROVIDERS: PCP Internal Medicine; Visit Provider Urology
DX: N42.32 Atypical small acinar proliferation of prostate (principal); R97.20 Elevated prostate specific antigen [PSA]; Z79.60 Long term (current) use of unspecified immunomodulators and immunosuppressants; Z13.9 Encounter for screening, unspecified
CPT/HCPCS: 99214

== ENCOUNTER → 2024-03-26 15:17 | Outpatient (BNVA) | payer OTHER, SELFPAY | PROVIDERS: PCP Internal Medicine; Visit Provider Urology | DX: N42.32 Atypical small acinar proliferation of prostate (principal); R97.20 Elevated prostate specific antigen [PSA]; Z79.60 Long term (current) use of unspecified immunomodulators and immunosuppressants | CPT/HCPCS: 81003; 99212 ==

== ENCOUNTER 2024-04-04 07:10 | Outpatient (REF) | payer OTHER, SELFPAY ==
[2024-04-04 07:35] LABS: MANUAL DIFF FLAG NO
[2024-04-04 07:43] LABS: Basophils Percent Auto 0.2 % (0-2); Eosinophils Absolute Auto 0.1 X10*3/uL (0.0-0.4); Eosinophils Percent Auto 1.6 % (0-4); Hematocrit 44.4 % (42.0-52.0); Hemoglobin 15.1 g/dl (14.0-18.0); Imm Gran Abs Auto 0.02 X10*3/uL (0.00-0.03); Imm Gran Pct Auto 0.3 % (0.0-0.4); Lymphocytes Absolute Auto 2.3 X10*3/uL (1.2-4.9); Lymphocytes Percent Auto 36.6 % (20-40); Mean Corpuscular Hemoglobin 28.8 pg (27.0-33.0); Mean Corpuscular Volume 84.6 fL (80.0-98.0); Mean Platelet Volume 9.8 fL (9.4-12.4); Monocytes Absolute Auto 0.6 X10*3/uL (0.1-1.2); Monocytes Percent Auto 9.3 % (2-11); Neutrophils Absolute Auto 3.3 x10*3/uL (2.0-8.3); Platelet Count 219 X10*3/uL (160-400); Red Blood Count 5.25 X10*6/uL (4.60-5.80); White Blood Count 6.3 X10*3/uL (4.8-10.8)
[2024-04-04 08:15] LABS: Alanine Aminotransferase 46 U/L (0-40); Albumin Level 4.5 g/dL (3.5-5.0); Alkaline Phosphatase 103 U/L (39-117); Anion Gap 14 (12-20); Aspartate Amino Transferase 36 U/L (5-37); Bilirubin Total 0.9 mg/dL (0.0-1.0); Blood Urea Nitrogen 16 mg/dL (9-16); C Reactive Protein 0.34 mg/dL (< or = 0.50); Calcium 9.7 mg/dL (8.4-10.2); Carbon Dioxide 24 mmol/L (22-29); Chloride 107 mmol/L (96-108); Estimated Glomerular Filt Rate > 60; Glucose Random 132 mg/dL (60-115); Potassium 3.8 mmol/L (3.3-5.1); Sodium 141 mmol/L (135-145); Total Protein 7.1 g/dL (6.5-8.0)
[2024-04-04 09:00] LABS: Erythrocyte Sedimentation Rate 7 MM/HR (0-15)
[2024-04-06 04:06] LABS: HBS Num1 95.76 mIU/mL (0-7.99); HBc Num1 0.05 S/CO (0.00-0.79); HBsAGNum1 0.56 S/CO (0.00-0.99); Hepatitis A Antibody IgM 0.28 Index (0-0.79); Hepatitis B Core Antibody Nonreactive (Nonreactive); Hepatitis B Surface Antigen Negative (Negative); ~Hepatitis A Antibody IgM Nonreactive (Nonreactive); ~Hepatitis B Surface Antibody REACTIVE (Nonreactive); ~Hepatitis C Antibody Nonreactive (Nonreactive)
== END 2024-04-04 07:11 | disposition home or self-care (01) ==
LOC: HO.LAB 07:10
PROVIDERS: PCP Internal Medicine; Visit Provider Student in an Organized Health Care Education/Training Program
DX: M46.80 Other specified inflammatory spondylopathies, site unspecified (principal); Z11.59 Encounter for screening for other viral diseases
CPT/HCPCS: 36415; 80053; 85025; 85652; 86140; 86704; 86706; 86709; 86803; 87340

== ENCOUNTER 2024-04-14 10:47 | Outpatient (AMB) | payer OTHER, SELFPAY ==
--- NOTE | 2024-04-14 10:54 | MHC.OFFVIS ---
Vital Signs 04/14/24 10:59 Height 5 ft Weight 155 lb 6.814 oz BMI 30.4 BP 140/72 H Blood Pressure Location Lt brachial Position Sitting Pulse 57 Pulse Source Pulse Oximeter Pulse Oximetry (%) 98 Oxygen Delivery Method Room Air Intake Visit Reasons: SPA Intake Note: Patient presents for SPA. Allergies celecoxib [From CELEBREX] Allergy (Mild, Verified 04/14/24 10:57) HIVES,ITCHING,RASH Medication List - Last Reconciled 04/14/24 by Ganga Rojas MD amlodipine 10 mg PO DAILY 90 days atorvastatin 40 mg PO BEDTIME 90 days baclofen 10 mg PO BID blood pressure monitor As directed blood sugar diagnostic (FreeStyle Test strips) used 1 test strip once a day blood sugar diagnostic (FreeStyle Lite Strips) use one strip once a day as directed blood-glucose meter (FreeStyle Lite Meter kit) use once a day as directed cholecalciferol (vitamin D3) 50 mcg PO BID diclofenac sodium 1% (Arthritis Pain (diclofenac)) 2 grams topical TID PRN Enbrel SureClick (etanercept) 50 mg subcut QWEEK NS fluocinonide 0.05% 1 appl topical BID gabapentin 100 - 300 mg (1 - 3 x 100 mg) PO BEDTIME PRN lancets (FreeStyle Lancets) use 1 lancet once a day levofloxacin 500 mg PO DAILY 3 days levofloxacin 500 mg PO DAILY 2 days lisinopril 40 mg PO DAILY 90 days metformin 500 mg PO BID 90 days oxycodone 5 mg PO Q6-8H PRN 2 days peg 3350-electrolytes 236-22.74-6.74 -5.86 gram (Golytely) 240 mL PO Q10M sumatriptan succinate 25 mg PO ONCE PRN 30 days tamsulosin (Flomax) 0.4 mg PO BEDTIME tramadol 50 mg PO BID PRN HPI Comments Details: This is a 59-year-old male with 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 States that he misses last visit as his sponsor and he had to be there for his family during the . He states that he has been feeling a little more achy, intermittent right-sided back spasms, uses Salonpas and baclofen. Remains on Enbrel 50 mg weekly. Denies any recent illnesses. [facility] Medical History Hyperparathyroidism Long-term use of immunosuppressant medication History of substance abuse Right arm pain Moderate recurrent major depression Diabetes mellitus Erectile dysfunction Hypovitaminosis D Depression Migraines Essential hypertension Non-radiographic axial spondyloarthritis Surgical History Hx of colonoscopy History of orthopedic surgery History of carpal tunnel release History of arthroscopy of left shoulder History of appendectomy History of nasal surgery History of eye surgery History of hand surgery Family History Father Stroke Mother Hypertension Arthritis Osteoporosis Depression with anxiety Lung cancer Brother Cognitive developmental delay Psychiatric problem Mental health disorder Social History Housing: House Alcohol intake: former Patient Tobacco Use Status: Former Tobacco user Tobacco use type: Cigarette Cigarettes Per Day: 20 Years Smoked: 20 e-Cigarette/Vaping Use: Never Used Second Hand Smoke Exposure: No service: No Current occupational status: retired Cognitive needs: No Hearing needs: No Vision needs: Yes (Glasses) Review of Systems Musc Reports myalgias and Reports arthralgias Physical Exam Vital Signs: Last Vital Signs Pulse 57 04/14/24 10:59 BP 140/72 H 04/14/24 10:59 Pulse Ox 98 04/14/24 10:59 Oxygen Delivery Method Room Air 04/14/24 10:59 BMI result Body Mass Index 30.4 Const General: cooperative, healthy appearing and comfortable Nutritional Appearance: obese Orientation/consciousness: patient oriented x3 Limitations: no limitations HEENT Head: Yes normocephalic and Yes atraumatic Mouth: moist mucous membranes Resp Effort & Inspection: normal respiratory effort and able to speak in complete sentences Auscultation: clear to auscultation bilaterally Cardio Rate: regular rate Rhythm: regular rhythm Skin General skin exam: no rashes or lesions noted Neuro General: patient oriented x3 Extrem Other: No active synovitis Normal nailfold capillaroscopy Normal range of motion of hands, elbows, shoulders without pain Negative straight leg raise test bilaterally Negative Cleve test bilaterally Assessment & Plan Assessment & Plan (1) Non-radiographic axial spondyloarthritis: Comment: + 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 Enbrel 06/2019 effective Code(s): M46.80 - Other specified inflammatory spondylopathies, site unspecified Category: Medical Plan: This is a 59-year-old male with 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 Doing very well on Enbrel 50 mg weekly, no signs suggestive of inflammatory peripheral or axial arthritis. Continue Enbrel 50 mg weekly Labs before next visit in 6 months. Unfortunately his T spot test was canceled, will check with next set of labs (2) Fibromyalgia: Code(s): M79.7 - Fibromyalgia Category: Medical Plan: Discussed management of fibromyalgia with patient. Is a noninflammatory, non-autoimmune central afferent processing disorder leading to a diffuse pain syndrome. I suggested that patient try to address his underlying psychiatric issues, anxiety/depression. I suggested evaluation by a therapist and/or a psychiatrist. Try to follow sleep hygiene practices. Consider a referral for a sleep study by his PCP to rule out RAQUEL. Consider low-impact exercises such as walking, swimming, aqua therapy stretching, yoga. (3) Long-term use of immunosuppressant medication: Code(s): Z79.60 - terminal clerk (current) use of unspecified immunomodulators and immunosuppressants Category: Medical Plan: Side effects of Enbrel were discussed with the patient in detail including increased risk of infection, demyelinating disease, reactivation of latent TB, possible increased risk of solid and skin tumors. Patient fully aware. Advised patient to seek medical care SUJIT if patient has an infection and advised patient to stop the medication until the infection is resolved. Plan I spent 24 minutes reviewing patient's chart, evaluating patient, ordering diagnostic workup, counseling patient and documenting in the chart Orders: Orders Comprehensive Met. Panel 6 Months M46.80 - Other specified inflammatory spondylopathies, site unspecified C Reactive Protein 6 Months M46.80 - Other specified inflammatory spondylopathies, site unspecified Erythrocyte Sedimentation Rate 6 Months M46.80 - Other specified inflammatory spondylopathies, site unspecified Complete Blood Count Auto Diff 6 Months M46.80 - Other specified inflammatory spondylopathies, site unspecified Medications: Refilled Enbrel SureClick (etanercept) 50 mg subcut QWEEK 4 mL 5RF NS M06.00 - Rheumatoid arthritis without rheumatoid factor, unspecified site Coding Level of Care Code Est Pt Level 4 (28373) Complex EM visit Add On G2211 Diagnoses Non-radiographic axial spondyloarthritis M46.80 Fibromyalgia M79.7 Long-term use of immunosuppressant medication Z79.60
[2024-04-14 10:59] VITALS: BP 140/72; PULSE 57; O2SAT 98; BMI 30.4
== END 2024-04-14 11:33 | disposition home or self-care (01) ==
PROVIDERS: PCP Internal Medicine; Visit Provider Student in an Organized Health Care Education/Training Program
DX: M46.80 Other specified inflammatory spondylopathies, site unspecified (principal); M79.7 Fibromyalgia; Z79.60 Long term (current) use of unspecified immunomodulators and immunosuppressants
CPT/HCPCS: 99214; G2211

== ENCOUNTER → 2024-04-14 10:47 | Outpatient (BNVA) | payer OTHER, SELFPAY | PROVIDERS: PCP Internal Medicine; Visit Provider Student in an Organized Health Care Education/Training Program | DX: M46.80 Other specified inflammatory spondylopathies, site unspecified (principal); M79.7 Fibromyalgia; Z79.60 Long term (current) use of unspecified immunomodulators and immunosuppressants | CPT/HCPCS: 99212 ==

== ENCOUNTER 2024-05-25 14:55 | Outpatient (AMB) | payer OTHER, SELFPAY ==
--- NOTE | 2024-05-25 14:56 | MHC.OFFVIS ---
Vital Signs 05/25/24 14:57 05/25/24 15:04 Height 5 ft Weight 158 lb 11.725 oz BMI 31.0 BP 206/98 H 169/79 H Blood Pressure Location Lt brachial Lt brachial Position Sitting Sitting Intake Visit Reasons: f/u pancreatic cyst Intake Note: Ry presents in the office as a follow up pancreatic cyst. CC: Stomach is okay. He states that he is feeling good at the moment! Allergies celecoxib [From CELEBREX] Allergy (Mild, Verified 05/25/24 15:00) HIVES,ITCHING,RASH HPI Comments Details: 57 y.o M with PMH of inflammatory spondyloarthritis, DM, previous hx of polysubstance use including etOH, who is here for elevated LFTs. Has had elevated LFTs persistently since 2019 ALT>AST. Previously had been attributed to MTX which has been stopped since 2020. Was taking Enbrel which was stopped last month. No OTC/CAM use. Last etOH use 6 years ago. No fam hx of chronic liver diseases. US 2020 showed steatosis and also ? GB polyps. Last colo was 5 years ago but was told he had poor prep and he had to repeat but does not recall getting a follow up appt. 02/19/24: Pt was lost to follow up. Was called by our office to make this follow up as he is also due for panc cyst surveillance. Otherwise, has no actue GI issues including abd pain, N,V,D. No blood in stool. No unitnentional weight loss. MRI 02/2023: 1. Significant hepatic steatosis. 2. A 1.1 cm cyst in the pancreatic neck which appears to communicate with the main pancreatic duct, possibly a small side branch IPMN. No solid components or pancreatic duct dilatation. Per ACR white paper on management of incidental pancreatic cysts, recommend annual follow-up contrast enhanced MRCP for 5 years, and if no clinically significant interval growth imaging can be decreased to every other year x2 to document 9 years total stability. MRCP 03/09/24: Gallbladder is fluid-filled. No pericholecystic fluid collection or gallbladder wall thickening. Common bile duct measures 4 mm. No intraluminal signal abnormality. No intrahepatic biliary ductal dilatation. Liver measures 18 cm. No nodular surface. There is a 1 cm lobulated hyperintense T2 lesion, right hepatic lobe. Main portal veins, hepatic veins and intrahepatic portions of the IVC demonstrated normal flow-void signal. There is a 1 cm lobulated hyperintense T2 lesion and the inferior aspect of the body of the pancreas in close relationship with the main pancreatic duct. The main pancreatic duct measures 2 mm in maximum diameter. No peripancreatic fluid collections. Spleen measures 9 cm. There is a 3 mm hyperintense T2 signal, nonspecific. 05/25/24: Here for follow up. No acute concerns. REsults of MRI discussed, essentially unchanged size of panc body cyst with no PD dilation, or intramural nodule noted. [facility] Medical History Hyperparathyroidism Long-term use of immunosuppressant medication History of substance abuse Right arm pain Moderate recurrent major depression Diabetes mellitus Erectile dysfunction Hypovitaminosis D Depression Migraines Essential hypertension Non-radiographic axial spondyloarthritis Surgical History Hx of colonoscopy History of orthopedic surgery History of carpal tunnel release History of arthroscopy of left shoulder History of appendectomy History of nasal surgery History of eye surgery History of hand surgery Family History Father Stroke Mother Hypertension Arthritis Osteoporosis Depression with anxiety Lung cancer Brother Cognitive developmental delay Psychiatric problem Mental health disorder Social History Housing: House Alcohol intake: former Patient Tobacco Use Status: Former Tobacco user Tobacco use type: Cigarette Cigarettes Per Day: 20 Years Smoked: 20 e-Cigarette/Vaping Use: Never Used Second Hand Smoke Exposure: No service: No Current occupational status: retired Cognitive needs: No Hearing needs: No Vision needs: Yes (Glasses) Review of Systems Const All systems reviewed & are unremarkable except as noted in HPI and below Physical Exam Vital Signs: Last Vital Signs BP 169/79 H 05/25/24 15:04 BMI result Body Mass Index 31.0 No apparent distress Nonicteric Abdomen soft, nondistended Alert and oriented x3, normal gait Assessment & Plan Assessment & Plan (1) Pancreatic cyst: Code(s): K86.2 - Cyst of pancreas Category: Medical Plan: Has 1 cm cyst in panc body without any red flags. REpeat MRCP due in 1-2 years as per guidelines for panc cyst of this size. (2) Colon cancer screening: Code(s): Z12.11 - Encounter for screening for malignant neoplasm of colon Category: Medical Plan: Msg already sent to book Plan follow up after colo Coding Level of Care Code Est Pt Level 3 (22304) Diagnoses Pancreatic cyst K86.2 Colon cancer screening Z12.11
[2024-05-25 14:57] VITALS: BP 206/98; BMI 31.0
[2024-05-25 15:04] VITALS: BP 169/79
== END 2024-05-25 15:42 | disposition home or self-care (01) ==
PROVIDERS: PCP Internal Medicine; Visit Provider Internal Medicine
DX: K86.2 Cyst of pancreas (principal)
CPT/HCPCS: 99213

== ENCOUNTER → 2024-05-25 14:55 | Outpatient (BNVA) | payer OTHER, SELFPAY | PROVIDERS: PCP Internal Medicine; Visit Provider Internal Medicine | DX: K86.2 Cyst of pancreas (principal); R79.89 Other specified abnormal findings of blood chemistry | CPT/HCPCS: 99212 ==

== ENCOUNTER 2024-06-16 07:53 | Outpatient (AMB) | payer OTHER, SELFPAY ==
--- NOTE | 2024-06-16 07:54 | MHC.OFFVIS ---
Vital Signs 06/16/24 07:57 06/16/24 08:20 Height 5 ft Weight 163 lb 2.273 oz BMI 31.9 BP 182/100 H 180/96 H Blood Pressure Location Rt brachial Rt brachial Position Sitting Pulse 60 Pulse Source Pulse Oximeter Intake Visit Reasons: f/u hyperparathyroidism Intake Note: Patient presents today for a follow-up on Hyperparathyroidism Lease Attendant Required: Yes Lease Attendant Language: Capsule Filler Services: Lease Attendant Present Lease Attendant Name: BILL Mina/HILLARY BOX Accompanied by: Self / Same As Patient Allergies celecoxib [From CELEBREX] Allergy (Mild, Verified 06/16/24 08:05) HIVES,ITCHING,RASH HPI Comments Details: 59 YO M with PMHx hypercalcemia who is seen in f/u for Hypercalcemia. He was last seen 02/12/14. At that time he was recommended to take 50mcg of vitamin-D twice daily and to repeat his blood work. He reports he is taking this daily. [place] 1 [place] and forgot to bring his medication with him. First noted to have high calcium approx 2020 Not Currently using HCTZ. Kidney stones: No Osteoporosis: No History of [place] use: No Biotin use: No Family history of high calcium or kidney stones: No Renal imaging: yes 04/25 no calculi [facility] Medical History Hyperparathyroidism Long-term use of immunosuppressant medication History of substance abuse Right arm pain Moderate recurrent major depression Diabetes mellitus Erectile dysfunction Hypovitaminosis D Depression Migraines Essential hypertension Non-radiographic axial spondyloarthritis Surgical History Hx of colonoscopy History of orthopedic surgery History of carpal tunnel release History of arthroscopy of left shoulder History of appendectomy History of nasal surgery History of eye surgery History of hand surgery Family History Father Stroke Mother Hypertension Arthritis Osteoporosis Depression with anxiety Lung cancer Brother Cognitive developmental delay Psychiatric problem Mental health disorder Social History Housing: House Alcohol intake: former Patient Tobacco Use Status: Former Tobacco user Tobacco use type: Cigarette Cigarettes Per Day: 20 Years Smoked: 20 e-Cigarette/Vaping Use: Never Used Second Hand Smoke Exposure: No service: No Current occupational status: retired Cognitive needs: No Hearing needs: No Vision needs: Yes (Glasses) Physical Exam Vital Signs: Last Vital Signs Pulse 60 06/16/24 07:57 BP 180/96 H 06/16/24 08:20 BMI result Body Mass Index 31.9 Const Other: Absence of Cushingoid features. Absence of acromegalic features. Neck exam reveals nl size thyroid about 15 gms. No thyroid nodules palpable. Heart S1 S2, Reg R/R. No M/R G. Skin exam reveals absence of vitiligo or acanthosis nigricans. Results Reviewed Results Reviewed: Laboratory Tests 01/29/24 03/25/24 04/04/24 07:53 08:50 07:33 Calcium 9.7 D 25-OH Vitamin D Total 28.4 L 31.6 PTH Intact 104.6 H 88.8 H Assessment & Plan Assessment & Plan (1) Hyperparathyroidism: Code(s): E21.3 - Hyperparathyroidism, unspecified Category: Medical Plan: 59-year-old with hyperparathyroidism secondary to low vitamin-D. PTH was lower at last check while taking supplementation twice daily. He is to continue 50 mcg twice daily and recheck his blood work. He will be seen back in 6 months. (2) Essential hypertension: Code(s): I10 - Essential (primary) hypertension Category: Medical Plan: His blood pressure was elevated than in the office today. He reports he had not taken blood pressure pills in 1 week in his going home immediately to take these. He was asked to take it easy today. He was advised that he if he misses his blood pressure medication in his blood pressure is high that he is at risk for stroke. Orders: Orders Calcium Today E55.9 - Vitamin D deficiency, unspecified Albumin Level Today E55.9 - Vitamin D deficiency, unspecified Parathyroid Hormone Intact Today E55.9 - Vitamin D deficiency, unspecified Vitamin D 25-OH Total Today E55.9 - Vitamin D deficiency, unspecified Patient Instructions: Patient was advised to take his medications as directed Coding Level of Care Code Est Pt Level 3 (68378) Complex EM visit Add On G2211 Diagnoses Hyperparathyroidism E21.3 Essential hypertension I10 Time Spent (min) 15 Comment Time spent reviewing labs/provider notes, face to face, chart doc
[2024-06-16 07:57] VITALS: BP 182/100; PULSE 60; BMI 31.9
[2024-06-16 08:20] VITALS: BP 180/96
== END 2024-06-16 11:29 | disposition home or self-care (01) ==
PROVIDERS: PCP Internal Medicine; Visit Provider Nurse Practitioner Adult Health
DX: E21.3 Hyperparathyroidism, unspecified (principal); I10 Essential (primary) hypertension
CPT/HCPCS: 99213; G2211

== ENCOUNTER → 2024-06-16 07:53 | Outpatient (BNVA) | payer OTHER, SELFPAY | PROVIDERS: PCP Internal Medicine; Visit Provider Nurse Practitioner Adult Health | DX: E21.3 Hyperparathyroidism, unspecified (principal); I10 Essential (primary) hypertension | CPT/HCPCS: 99212 ==

== ENCOUNTER 2024-06-17 07:34 | Outpatient (AMB) | payer OTHER, SELFPAY ==
--- NOTE | 2024-06-17 07:38 | A.OFFPC_ITS ---
Vital Signs 06/17/24 07:41 Height 5 ft Weight 163 lb BMI 31.8 BP 132/80 Blood Pressure Location Lt brachial Position Sitting Intake Visit Reasons: dm Intake Note: Patient here for a follow up DM Organisation And Methods Analyst Required: Yes Organisation And Methods Analyst Language: Tool Hardener Name: Linda Arambula MD Information Interpreted: non-clinical & clinical Accompanied by: Self / Same As Patient Allergies celecoxib [From CELEBREX] Allergy (Mild, Verified 06/17/24 07:51) HIVES,ITCHING,RASH Medication List - Last Reconciled 06/17/24 by Linda Arambula MD amlodipine 10 mg PO DAILY 90 days atorvastatin 40 mg PO BEDTIME 90 days baclofen 10 mg PO BID blood pressure monitor As directed blood sugar diagnostic (FreeStyle Test strips) used 1 test strip once a day blood sugar diagnostic (FreeStyle Lite Strips) use one strip once a day as directed blood-glucose meter (FreeStyle Lite Meter kit) use once a day as directed cholecalciferol (vitamin D3) 50 mcg PO BID diclofenac sodium 1% (Arthritis Pain (diclofenac)) 2 grams topical TID PRN Enbrel SureClick (etanercept) 50 mg subcut QWEEK NS fluocinonide 0.05% 1 appl topical BID gabapentin 100 - 300 mg (1 - 3 x 100 mg) PO BEDTIME PRN hydroxyzine HCl mg PO ONCE lancets (FreeStyle Lancets) use 1 lancet once a day lisinopril 40 mg PO DAILY 90 days metformin 500 mg PO BID 90 days oxycodone 5 mg PO Q6-8H PRN 2 days sumatriptan succinate 25 mg PO ONCE PRN 30 days tamsulosin (Flomax) 0.4 mg PO BEDTIME tramadol 50 mg PO BID PRN Tobacco use date assessed: 06/17/24 Dental Screening Dental Screen Date: 06/17/24 Did you have a dental visit in the last 12 months?: No Did you have a dental problem in the last 6 months where you did not have access to dental care?: No Was dental information given to patient?: Patient has dentist HPI HPI Comments History of Present Illness Details The patient is a 59-year-old male presenting with ongoing management of multiple chronic conditions. He has a history of essential hypertension, for which his blood pressure was recently measured at 132/80 mmHg, indicating good control. He was previously seen by an shipyard painter helper with noted slight elevation. His diabetes is being managed, with a recent A1c of 6.9% which is deemed acceptable given his target of less than 7%. The patient has been diagnosed with hyperlipidemia and is currently on atorvastatin 40mg to maintain an LDL target below 70 mg/dL. He is also under care for spondyloarthritis, managed with an etanercept injection once weekly. Rheumatology also monitors this condition closely, and there has been a history of transaminitis due to methotrexate. He was noted to have high parathyroid hormone levels, possibly connected to low vitamin D, necessitating repeat tests. He has a history of obstructive uropathy secondary to benign prostatic hyperplasia, for which he uses tamsulosin. Additionally, he experiences migraine episodes, using sumatriptan as needed. Depression and stress-related c ircumstances were acknowledged, exacerbated by current housing instability. The patient is attending therapy sessions to aid with mental health management. A recent PSA elevation led to a prostate biopsy, with suspicious areas noted, warranting further investigation via MRI scheduled for July 24, following a blood test and specific preparatory instructions. He has mild to moderate recurrent major depression with anxiety follow by counseling. No suicidal thoughts. Also has hyperparathyroidism that will be monitor. [facility] Medical History Hyperparathyroidism Long-term use of immunosuppressant medication History of substance abuse Right arm pain Moderate recurrent major depression Diabetes mellitus Erectile dysfunction Hypovitaminosis D Depression Migraines Essential hypertension Non-radiographic axial spondyloarthritis Surgical History Hx of colonoscopy History of orthopedic surgery History of carpal tunnel release History of arthroscopy of left shoulder History of appendectomy History of nasal surgery History of eye surgery History of hand surgery Family History Father Stroke Mother Hypertension Arthritis Osteoporosis Depression with anxiety Lung cancer Brother Cognitive developmental delay Psychiatric problem Mental health disorder Social History Housing: House Alcohol intake: former Patient Tobacco Use Status: Former Tobacco user Tobacco use type: Cigarette Cigarettes Per Day: 20 Years Smoked: 20 e-Cigarette/Vaping Use: Never Used Second Hand Smoke Exposure: No service: No Current occupational status: retired Cognitive needs: No Hearing needs: No Vision needs: Yes (Glasses) Questionnaire PHQ-9 Over the last 2 weeks, how often have you been bothered by any of the following problems? 1. Little interest or pleasure in doing things: several days 2. Feeling down, depressed, or hopeless: nearly every day 3. Trouble falling or staying asleep, or sleeping too much: several days 4. Feeling tired or having little energy: more than half the days 5. Poor appetite or overeating: several days 6. Feeling bad about yourself - or that you are a failure or have let yourself or your family down: several days 7. Trouble concentrating on things, such as reading the newspaper or watching television: several days 8. Moving or speaking so slowly that other people could have noticed. Or the opposite - being so fidgety or restless that you have been moving around a lot more than usual: several days 9. Thoughts that you would be better off or of hurting yourself in some way: several days Total score: 12 Depression Screening Interpretation: Positive Depression Screening Follow-up: Existing condition, In treatment, Community Mental Health Worker F/U and Follow- up Visit Requested Depression Screening Done: Yes 03865 - PHQ-9 Billing: Yes Source: Developed by Drs. Toy Blair, Tatianna Pina, Diego Jimenes and colleagues, with an educational lissette from [employer]. Thrive Questionnaire Date Thrive assessed: 06/17/24 I am a: Patient What is your living situation today?: I have a steady place to live Within the past 12 months, did the food you bought not last and you didn't have the money to get more?: Never true Within the past 12 months, did you worry whether your food would run out before you got money to buy more?: Never true Do you have trouble paying for medicines?: No Do you have trouble getting transportation to medical appointments?: No Do you have trouble paying your heating and electricity bill?: No Do you have trouble taking care of your child, family member or friend?: No Do you have trouble with day-to-day activities such as bathing, preparing meals, shopping, managing finances, etc.?: No Are you currently unemployed and looking for a job?: No Are you interested in more education?: No Please select the resources that you would like help with: None Currently or been in a relationship where the following occur: No concerns reported THRIVE Score: 0 AUDIT C Alcohol Use Questionnaire (AUDIT-C) 1. How often do you have a drink containing alcohol?: Never Total Score: 0 Score Reviewed/Action Taken: No JANETH-7 AMB Questionnaire JANETH-7 Date JANETH - 7 assessed: 06/17/24 Feeling nervous, anxious, or on edge: 2 = More than half the days Not being able to stop or control worryin = Several days Worrying too much about different things: 3 = Nearly every day Trouble relaxin = Several days Being so restless that it is hard to sit still: 2 = More than half the days Becoming easily annoyed or irritable: 3 = Nearly every day Feeling afraid as if something awful might happen: 1 = Several days Total JANETH-7 score (0-4 normal; 5-9 mild; 10-14 moderate; 15-21 severe): 13 Source: Developed by Drs. Toy Blair, Tatianna Pina, Diego Jimenes and colleagues, with an educational lissette from [employer]. JANETH-7 Assessment Billing JANETH-7 Assessment Tool: JANETH-7 Assessment 19244 Review of Systems Const All systems reviewed & are unremarkable except as noted in HPI and below Card Denies chest pain at rest, Denies chest pain with activity, Denies edema, Denies irregular heart rhythm, Denies claudication, Denies dyspnea, Denies dyspnea on exertion, Denies orthopnea, Denies paroxysmal nocturnal dyspnea and Denies slow heart rate Resp Denies cough, Denies dyspnea and Denies dyspnea on exertion GI Denies abdominal pain, Denies change in bowel habits, Denies excessive flatus, Denies nausea and Denies vomiting Physical exam (Primary Care) Vital Signs: Last Vital Signs BP 132/80 06/17/24 07:41 BMI result Body Mass Index 31.8 Tobacco/Smoking Status: Tobacco use Status Tobacco use date assessed 06/17/24 06/17/24 07:48 Patient Tobacco Use Status Former Tobacco user 06/17/24 07:39 Tobacco use type Cigarette 06/17/24 07:39 e-Cigarette/Vaping Use Never Used 06/17/24 07:39 PHQ-9: PHQ-9 Score PHQ-9: Total score 12 06/17/24 08:01 Depression Screening Interpretation: Positive Depression Screening Follow-up: Existing condition, In treatment, Community Mental Health Worker F/U and Follow- up Visit Requested Thrive Assessment: Date of Thrive Assessment Date Thrive assessed 06/17/24 06/17/24 07:48 Currently or been in a relationship where the following occur: No concerns reported Resp Effort & Inspection: normal respiratory effort Auscultation: clear to auscultation bilaterally Cardio Jugular venous distension: no JVD Rate: regular rate Rhythm: regular rhythm Heart sounds: S1 normal heart sound present and S2 normal heart sound present Extrem General: Yes full ROM Results AMB Hemoglobin A1c AMB Hemoglobin A1c 6.9 % Last Edit by BILL Pang on 06/17/24 07:5 2 Results Reviewed Results Reviewed: Laboratory Last Values Hgb A1c (Clinic) 6.9 % (4.0-6.0) H 06/17/24 07:37 Coding Level of Care Code Est Pt Level 4 (55707) Complex EM visit Add On G2211 Diagnoses Type 2 diabetes mellitus with hyperglycemia, without long-term current use of insulin E11.65 Diabetes mellitus complication status: with hyperglycemia Diabetes mellitus terminal gauger supervisor insulin use: without mcfp use Diabetes mellitus type: type 2 Non-radiographic axial spondyloarthritis M46.80 Hyperlipidemia with target LDL less than 70 E78.5 Moderate recurrent major depression F33.1 Hyperparathyroidism E21.3 Migraine without status migrainosus, not intractable, unspecified migraine type G43.909 Migraine type: unspecified Status migrainosus presence: without status migrainosus Intractability: not intractable Essential hypertension I10 Additional Codes JANETH-7 Assessment Billing - JANETH-7 Assessment Tool: JANETH-7 Assessment 97559 ([id number]) PHQ-9 - 24502 - PHQ-9 Billing: Yes ([id number]) Time Spent (min) 22 Assessment & Plan Assessment & Plan (1) Diabetes mellitus: Code(s): E11.9 - Type 2 diabetes mellitus without complications Category: Medical Qualifiers: Diabetes mellitus complication status: with hyperglycemia Diabetes mellitus mcfp insulin use: without mcfp use Diabetes mellitus type: type 2 Qualified Code(s): E11.65 - Type 2 diabetes mellitus with hyperglycemia (2) Non-radiographic axial spondyloarthritis: Comment: + 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 Enbrel 06/2019 effective Code(s): M46.80 - Other specified inflammatory spondylopathies, site unspecified Category: Medical (3) Hyperlipidemia with target LDL less than 70: Code(s): E78.5 - Hyperlipidemia, unspecified Category: Medical (4) Moderate recurrent major depression: Code(s): F33.1 - Major depressive disorder, recurrent, moderate Category: Medical (5) Hyperparathyroidism: Code(s): E21.3 - Hyperparathyroidism, unspecified Category: Medical (6) Migraines: Code(s): G43.909 - Migraine, unspecified, not intractable, without status migrainosus Category: Medical Qualifiers: Migraine type: unspecified Status migrainosus presence: without status migrainosus Intractability: not intractable Qualified Code(s): G43.909 - Migraine, unspecified, not intractable, without status migrainosus (7) Essential hypertension: Code(s): I10 - Essential (primary) hypertension Category: Medical Plan - Continue current antihypertensive regimen including amlodipine and lisinopril. - Maintain A1c target less than 7% with current metformin dosage. - Continue atorvastatin 40mg and monitor LDL; conduct blood tests as scheduled. - Continue weekly etanercept injections for spondyloartyritis. - Repeat parathyroid hormone testing due to previous elevation. - Continue tamsulosin for urinary symptoms. Await results of the MRI for prostate concerns. - Assess migraine management efficacy with sumatriptan and adjust as necessary. - Encourage continuation of therapy sessions for mental health support. Patient was informed and verbally consented to the use of an ambient scribe for clinic note documentation during this visit. During this visit, I reviewed the patient's chronic conditions and confirmed that his hypertension and diabetes are under control with his current treatment plan. I explained the importance of maintaining his A1c levels below 7% to minimize complications from diabetes. For his hyperlipidemia, I discussed the goal of keeping LDL below 70 mg/dL with atorvastatin. Management strategies for his psoriatic arthritis were reinforced, and the necessity of the upcoming MRI for prostate evaluation was reviewed, including pre-test preparations, as part of ongoing monitoring due to previously elevated PSA. We discussed his depression and current therapy sessions, emphasizing their importance given his housing situation. I reiterated the continuation of current medication regimens except as noted above and confirmed attendance to regular follow-ups. Orders: Orders Lipid Panel 4 Months E78.5 - Hyperlipidemia, unspecified Comprehensive [place]. Panel Fast 4 Months E11.65 - Type 2 diabetes mellitus with hyperglycemia Parathyroid Hormone Intact 4 Months E21.3 - Hyperparathyroidism, unspecified Calcium, Ionized 4 Months E21.3 - Hyperparathyroidism, unspecified Microalbumin, Random (w Creat) 4 Months R80.9 - Proteinuria, unspecified Vitamin D 25-OH Total 4 Months E55.9 - Vitamin D deficiency, unspecified AMB Hemoglobin A1c Today E11.65 - Type 2 diabetes mellitus with hyperglycemia Patient Instructions: - Continue taking prescribed medications as directed. - Monitor blood pressure and blood glucose regularly at home. - Attend scheduled MRI for prostate evaluation and follow preparation instructions. - Continue attending therapy sessions for mental health. - Follow a heart-healthy diet for cholesterol management. - Contact the clinic if experiencing any significant health changes or concerns.
[2024-06-17 07:41] VITALS: BP 132/80; BMI 31.8
== END 2024-06-17 08:06 | disposition home or self-care (01) ==
PROVIDERS: PCP Internal Medicine; Visit Provider Internal Medicine
DX: E11.65 Type 2 diabetes mellitus with hyperglycemia (principal); M46.80 Other specified inflammatory spondylopathies, site unspecified; F33.1 Major depressive disorder, recurrent, moderate; E21.3 Hyperparathyroidism, unspecified; E78.5 Hyperlipidemia, unspecified; G43.909 Migraine, unspecified, not intractable, without status migrainosus; I10 Essential (primary) hypertension

== ENCOUNTER → 2024-06-17 07:34 | Outpatient (BNVA) | payer OTHER, SELFPAY | PROVIDERS: PCP Internal Medicine; Visit Provider Internal Medicine | DX: E11.65 Type 2 diabetes mellitus with hyperglycemia (principal); M46.80 Other specified inflammatory spondylopathies, site unspecified; E78.5 Hyperlipidemia, unspecified; F33.1 Major depressive disorder, recurrent, moderate; E21.3 Hyperparathyroidism, unspecified; G43.909 Migraine, unspecified, not intractable, without status migrainosus; I10 Essential (primary) hypertension | CPT/HCPCS: 83036; 96127; 99212 ==

== ENCOUNTER 2024-07-17 15:02 | Outpatient (REF) | payer OTHER, SELFPAY ==
[2024-07-17 16:24] LABS: Prostate Specific Antigen 4.12 ng/mL (<0.05-4.0)
--- OUTSIDE RECORDS SUMMARY | 2024-07-17 16:26 | XMS_ITS ---
Author Organization [facility] Address [address] [place] [phone] Care Team Providers Care T[employer] M[employer]le Supervisor Name Role Phone No, PCP Primary Care Provider Lola Vickers Encounters Encounter Location Date Provider Diagnosis [facility] [address] [place] [address] [phone] 05/08/2024 Lola Gilmore Plan Of Treatment No Information Progress Notes * Ry HELM oDOB:1965 (59 yo M)Acc No.[id number]:05/08/2024 Case Management Patient:?Sara HELM Provider:?Lola Gilmore :1965???Age:59 Y???Sex:Male Mo e:05/08/2024 Address:[address] [facility] [id number] Pcp:PCP No Subjective: * Chief Complaints: * ??? * HPI: ???Social Service:?Date of encounter?[phone].?Referral Source?walk-in.?Interpretation for medical provider?housing.?Follow-up Required:?Type of follow-up:: he will call if he needs an appoitnment.?Pt comprehension?Pt agrees with plan, Patient understood process and assisted with process.?Action taken (old)?form completion: Intake, Med release.? Client has two children and would like to receive services for the family. [facility] to apply for housing in or in adjacent towns and to contact us if he needed services for himself only. * Medical History:? Objective: * Vitals:? Assessment: Plan: * Treatment: * Images: Billing Information: * Visit Code:? * Procedure Codes:? Care Plan Details* * Sign off status: Completed true * Provider:?Lola Gilmore Date:? Generated for Gypsy pérez/Dc/Mariola on:?07/17/2024 04:25 PM EDT History and Physical Notes * HPI (History of Present Illness) Category Sub-Category Detail Notes Social Service Referral Source walk-in Interpretation for medical provider hous ing Action taken (old) form completion: Int sheila, Med release Follow-up Required: Type of follow-up:: he will call if he needs an appoitnment Pt comprehension Pt agrees with plan, Patient understood process and assisted with process Date of encounter [phone]
--- OUTSIDE RECORDS SUMMARY | 2024-07-17 16:26 | XMS_ITS | Clinical Summary ---
Author Organization [facility] Facility Address [address] [place] [address] Care Team Providers Care Deputy Sheriff Building Guard Name Role Phone Linda Hidalgo MD Primary Care Provider [phone] Allergies No known active allergies Medications metFORMIN (GLUCOPHAGE) 500 MG tablet Take 500 mg by mouth 1 (one) time each day 10/09/2022 Active lisinopril 40 MG tablet Take 40 mg by mouth 1 (one) time each day 10/12/2022 Active fluocinonide (LIDEX) 0.05 % cream APPLY TO AFFECTED AREAS OF THE HANDS TWICE DAILY FOR TWO WEEKS, BREAK FOR ONE WEEK, REPEAT NEEDED 10/08/2022 Active D3-1000 25 MCG (1000 UT) capsule Take 2,000 Units by mouth 1 (one) time each day 12/03/2022 Active atorvastatin (LIPITOR) 20 MG tablet Take 20 mg by mouth at bed time 10/09/2022 Active amLODIPine (NORVASC) 10 MG tablet Take 10 mg by mouth 1 (one) time each day 12/01/2022 Active acetaminophen (TYLENOL) 325 MG tablet Take by mouth every 6 (six) hours if needed for mild pain Active Active Problems Problem Noted Date Diagnosed Date Essential (primary) hypertension 12/17/2022 Type 2 diabetes mellitus wit h diabetic autonomic (poly)neuropathy 12/17/2022 Hyperlipidemia 12/17/2022 Osteoporosis 12/17/2022 Senile dementia with depression 12/17/2022 Proteinuria 12/17/2022 Family History Medical History Relation Comments Stroke Father Hypertension Mother Relation Status Comments Father Mother Alive Social History Tobacco Use Types Packs/Day Years Used Date Smoking Tobacco: Never Assessed Sex and Gender Information Value Date Recorded Sex Assigned at Not on file Legal Sex Male 11:51 AM EDT Gender Identity Not on file Sexual Orientation Not on file Last Filed Vital Signs Vital Sign Reading Time Taken Comments Blood Pressure 122/62 12/17/2022 1:39 PM EDT Pulse 68 12/17/2022 1:39 PM EDT Temperature - - Respiratory Rate - - Oxygen Saturation 97% 12/17/2022 1:39 PM EDT Inhaled Oxygen Concentration - - Weight 73.1 kg (161 lb 3.2 oz) 12/17/2022 1:39 P M EDT Height - - Body Mass Index - - Plan of Treatment Health Maintenance Due Date Last Done Comments Hepatitis B Vaccine (1 of 3 - 19+ 3-dose series) 02/02/1984 Colorectal Cancer Screening: Annual FOBT 2014 Colorectal Cancer Screening: Colonoscopy 2014 Colorectal Cancer Screening: Sigmoidoscopy 2014 Diabetes: Hemoglobin A1C 12/17/2022 08/06/2022 Diabetes: Ophthalmology Exam 12/17/2022 Diabetes: Pedal Pulse Checked 12/17/2022 Diabetes: Sensory Foot Exam 12/17/2022 Diabetes: Visual Foot Exam 12/17/2022 Influenza Vaccine (#1) 2024 Pneumococcal Vaccine: Pediat rics (0 to 5 Years) and At-Risk Patients (6 to 64 Years) Aged Out No longer eligi ble based on patient's age to complete this topic Procedures Procedure Name Priority Date/Time Associated Diagnosis Comments EXT RESULT ENTRY Routine 08/06/2022 from Last 3 Months or Most Recently Relevant to Health Maintenance Results * (ABNORMAL) EXT RESULT ENTRY (08/06/2022) WBC 6.8 3.3 - 10.0 10*3/ML Red Blood Cell Count 5.35 Hemoglobin 15.5 13.5 - 17.5 Hematocrit 45.3 41.0 - 53.0 Platelets 269 150 - 399 10*3/UL MCV 84.7 82.0 - 108.0 Sodium 141 137 - 147 Potassium 4.2 3.4 - 5.5 Chloride 107.0 99.0 - 108.0 Anion Gap 11 <=30 MMOL/L BUN 11 4 - 21 mg/dL Creatinine 0.98 0.60 - 1.30 mg/dL Albumin 4.5 3.5 - 5.0 g/dL Calcium 9.4 8.7 - 10.7 mg/dL Hemoglobin A1C 6.6(A) 4.0 - 6.0 08/06/2022 us Historical Provider LAB BLOOD ORDERABLES Shiloh l Result from Last 3 Months or Most Recently Relevant to Health Maintenance Insurance [facility] ONE CARE DUAL SNP ([id number]) [facility] ONE CARE DUAL SNP ([id number]) Care Teams Deputy Sheriff Building Guard Relationship Specialty Start Date End Date Linda Hidalgo MD [address] [place], [place] PCP - General Internal Medicine 08/17/22
--- OUTSIDE RECORDS SUMMARY | 2024-07-17 16:26 | XMS_ITS | Patient Health Record ---
Author Organization [facility] Address [address] [place], [place] [id number] Care Team Providers Care Poultry Offal Worker Name Role Phone No, PCP Primary Care Provider UnavailLola Mccarthy Unavailable Reason For Referral No Information Encounters Encounter Location Date Provider Diagnosis [facility] [address] [place] [phone] 05/08/2024 Lola Gilmore Plan Of Treatment No Information Insurance Providers Payer Name Payer Address Payer Phone Subscriber Number Group Number Insured Name Patient Relationship to Insured Coverage Start Date Coverage End Date [place] Medicaid Standard [address] [place] [address] [id number] Ry Helm Self - patient is the insured 5 [place] Medicaid C3 [address] [place], [place] [id number] Ry Helm Self - patient is the insured 5
== END 2024-07-17 15:03 | disposition home or self-care (01) ==
LOC: HO.LAB 15:02
PROVIDERS: PCP Internal Medicine; Visit Provider Urology
DX: Z12.5 Encounter for screening for malignant neoplasm of prostate (principal)
CPT/HCPCS: 36415; 84153

== ENCOUNTER 2024-07-24 09:06 | Outpatient (REF) | payer OTHER, SELFPAY ==
--- NOTE | ~2024-07-24 | MR_ITS ---
EXAMINATION: MR PROSTATE WITHOUT THEN WITH IV CONTRAST HISTORY: N42.32 - Atypical small acinar proliferation of prostate TECHNIQUE: 1.5T body coil survey of the pelvis was performed. Phase array coil imaging of the prostate was performed in multiplanar high resolution axial, coronal, sagittal fast spin echo T2 and axial T1 weighted imaging sequences. Axial diffusion imaging at intermediate and high field performed with ADC mapping. Next, 7.5 mL Gadavist was given by intravenous infusion, and dynamic axial imaging performed. COMPARISON: There are no prior studies for comparison. CLINICAL DATA: Most recent PSA: 4.12 ng/mL on 07/17/2024 PSA Density: 0.13 ng/mL squared Prostate Biopsy: Biopsy on 03/13/2024 demonstrating small acinar proliferation, suspicious for prostate carcinoma with a Frederic score 3+3 = 6. FINDINGS: Prostate size: 4.1 x 4.5 x 3.2 cm. Calculated prostate volume is 30.7 mL. Hemorrhage: There is T1 hyperintensity in the peripheral zone bilaterally compatible with hemorrhage. Transitional Zone: There is moderate heterogeneous nodular hypertrophy of the transitional zone. Peripheral Zone: Evaluation of the peripheral zone is limited by residual hemorrhage. No definite abnormality is seen. Seminal Vesicles/Ejaculatory Ducts: Symmetric and normal in signal and caliber. Pelvic Lymph Nodes: No obturator or internal iliac lymph nodes meeting size criteria for adenopathy. Marrow Signal: Normal marrow signal and enhancement without focal lesion identified. MR/MR Prostate wo/w con IMPRESSION: Limited examination due to the presence of residual hemorrhage. No discrete focus of abnormal signal intensity is identified to suggest clinically significant prostate carcinoma. PI-RADS 2: Low (clinically significant cancer is unlikely to be present) PI-RADS Assessment Categories PI-RADS 1: Very low (clinically significant cancer is highly unlikely to be present) PI-RADS 2: Low (clinically significant cancer is unlikely to be present) PI-RADS 3: Intermediate (the presence of clinically significant cancer is equivocal) PI-RADS 4: High (clinically significant cancer is likely to be present) PI-RADS 5: Very high (clinically significant cancer is highly likely to be present) [employer]. MR Prostate Imaging Reporting and Data System version 2.1. [email or web address]/[email or web address]-[email or web address] Electronically signed by: Toy Ho MD 07/24/2024 11:21 AM EDT RP
--- OUTSIDE RECORDS SUMMARY | 2024-07-24 09:49 | XMS_ITS ---
Author Organization [facility] Address [address] [place] [id number] Care Team Providers Care Siding Mechanic Name Role Phone No, PCP Primary Care Provider Lola Vickers Encounters Encounter Location Date Provider Diagnosis [facility] [address] [place] [id number] 05/08/2024 Lola Gilmore Plan Of Treatment No Information Progress Notes * Ry HELM oDOB:1965 (59 yo M)Acc No.[id number]:05/08/2024 Case Management Patient:?Sara HELM Provider:?Lola Gilmore :1965???Age:59 Y???Sex:Male Mo e:05/08/2024 Address:[address] [facility] [id number] Pcp:PCP No Subjective: * Chief Complaints: * ??? * HPI: ???Social Service:?Date of encounter?[id number].?Referral Source?walk-in.?Interpretation for medical provider?housing.?Follow-up Required:?Type of follow-up:: he will call if he needs an appoitnment.?Pt comprehension?Pt agrees with plan, Patient understood process and assisted with process.?Action taken (old)?form completion: Intake, Med release.? Client has two children and would like to receive services for the family. [facility] client to apply for housing in or in adjacent towns and to contact us if he needed services for himself only. * Medical History:? Objective: * Vitals:? Assessment: Plan: * Treatment: * Images: Billing Information: * Visit Code:? * Procedure Codes:? Care Plan Details* * Sign off status: Completed true * Provider:?Lola Gilmore Date:? Generated for Gypsy pérez/Dc/Mariola on:?07/24/2024 09:49 AM EDT History and Physical Notes * HPI [...] and assisted with process Date of encounter [id number]
--- OUTSIDE RECORDS SUMMARY | 2024-07-24 09:49 | XMS_ITS | Clinical Summary ---
Author Organization [facility] Facility Address [address] [place] [address] Care Team Providers Care Battery Test Engineer Name Role Phone Linda Hidalgo MD Primary Care Provider [phone] Allergies No known active allergies Medications metFORMIN [...] Most Recently Relevant to Health Maintenance Insurance [facility] ONE CARE DUAL SNP ([id number]) [facility] [employer] DUAL SNP ([id number]) Care Teams Battery Test Engineer Relationship Specialty Start Date End Date Linda Hidalgo MD [address] [place], [place] PCP - General Internal Medicine 08/17/22
--- OUTSIDE RECORDS SUMMARY | 2024-07-24 09:50 | XMS_ITS | Patient Health Record ---
Author Organization [facility] Address [address] [place], [place] [phone] Care Team Providers Care Church Official Name Role Phone No, PCP Primary Care Provider UnavailLola Mccarthy Unavailable Reason For Referral No Information Encounters Encounter Location Date Provider Diagnosis [facility] [address] [place] [id number] 05/08/2024 Lola Gilmore Plan Of Treatment No Information Insurance Providers Payer Name Payer Address Payer Phone Subscriber Number Group Number Insured Name Patient Relationship to Insured Coverage Start Date Coverage End Date [place] Medicaid Standard [address] [place] [address] [id number] Ry Helm Self - patient is the insured 5 [place] C3 [address] [place], [place] [id number] Ry Helm Self - patient is the insured 5
[2024-07-24] MEDS: gadobutroL 7.5 ML VIAL IVPUSH (10:42)
== END 2024-07-24 09:07 | disposition home or self-care (01) ==
LOC: HO.MRI 09:06
PROVIDERS: PCP Internal Medicine; Visit Provider Urology
DX: N42.32 Atypical small acinar proliferation of prostate (principal); R97.20 Elevated prostate specific antigen [PSA]; Z79.60 Long term (current) use of unspecified immunomodulators and immunosuppressants
CPT/HCPCS: 72197; A9585

== ENCOUNTER → 2024-07-24 09:18 | Outpatient (BNV) | payer OTHER, SELFPAY | PROVIDERS: PCP Internal Medicine; Visit Provider Radiology Diagnostic Radiology | DX: N42.32 Atypical small acinar proliferation of prostate (principal) | CPT/HCPCS: 72197 ==

== ENCOUNTER 2024-09-08 08:47 | Outpatient (AMB) | payer OTHER, SELFPAY ==
--- NOTE | 2024-09-08 08:47 | A.OFFVIS_ITS ---
Intake Visit Reasons: 5 month follow up/ MRI Intake Note: Patient is present for a 5 month follow up/MRI 07/17 PSA: 4.12 07/24 MRI Urology Medication:NONE Antibiotic Allergy:NONE Blood Thinner:NONE Public Health Microbiologist Required: Yes Public Health Microbiologist Name: Beba Johnson Information Interpreted: non-clinical & clinical Allergies celecoxib [From CELEBREX] Allergy (Mild, Verified 09/08/24 08:49) HIVES,ITCHING,RASH HPI Comments Details: 09/08/24-- Ry is being followed due to elevated PSA, he had positive prostate biopsy on 03/13/24--Left base lateral: Atypical small acinar proliferation, suspicious for adenocarcinoma (sonu 3+3= 6). On active surveillance. Telehealth today- fu MRI and PSA- I discussed MRI--07/24/24 - PI-RADS 2: Low (clinically significant cancer is unlikely to be present), limited due to some hemorrhage present. PSA --07/17/24--4.12 ng/mL. Plan to continue active surveillance. MRI in 9 months, PSA in 6 months. He is prescribed tamsulosin for BPH. 03/25/24--Ry in being followed for elevated PSA. PSA -01/06/24--4.41 ng/mL. He is s/p transrectal ultrasound guided prostate biopsy on 03/13/24. He states he is doing well since procedure. I have discussed results. Prostate biopsy pathology--Collected: 03/13/24--Diagnosis--Left base lateral: Atypical small acinar proliferation, suspicious for adenocarcinoma (3+ 3=6). Plan- MRI prostate in 4 months, and repeat PSA. 01/30/24--telehealth follow-up elevated PSA. Discussed repeat PSA 01/29/2024 is 4.41 ng/mL. Discussed further evaluation with prostate biopsy. 10/14/23--Ry is here for AGRISCIENCE INSTRUCTOR evaluation for elevated PSA. He has obstructive BPH symptoms. AUA symptom score 21. PSA 10/01/23--4.31 ng/mL. I have discussed PSA is a blood test, prostate specific antigen and is an enzyme secreted by the prostate gland. Elevated PSA may be due to multiple conditions including prostate inflammatory condition, enlarged prostate or prostate cancer. Will start flomax daily and repeat PSA in 4 months. [facility] Medical History Hyperparathyroidism Long-term use of immunosuppressant medication History of substance abuse Right arm pain Moderate recurrent major depression Diabetes mellitus Erectile dysfunction Hypovitaminosis D Depression Migraines Essential hypertension Non-radiographic axial spondyloarthritis Surgical History Hx of colonoscopy History of orthopedic surgery History of carpal tunnel release History of arthroscopy of left shoulder History of appendectomy History of nasal surgery History of eye surgery History of hand surgery Family History Father Stroke Mother Hypertension Arthritis Osteoporosis Depression with anxiety Lung cancer Brother Cognitive developmental delay Psychiatric problem Mental health disorder Social History Housing: House Alcohol intake: former Patient Tobacco Use Status: Former Tobacco user Tobacco use type: Cigarette Cigarettes Per Day: 20 Years Smoked: 20 e-Cigarette/Vaping Use: Never Used Second Hand Smoke Exposure: No service: No Current occupational status: retired Cognitive needs: No Hearing needs: No Vision needs: Yes (Glasses) Review of Systems Const All systems reviewed & are unremarkable except as noted in HPI and below Reports no additional complaints Eyes Reports no additional complaints ENT Reports no additional complaints Card Reports no additional complaints Resp Reports no additional complaints GI Reports no additional complaints Reports as per HPI Musc Reports no additional complaints Skin/Breast Reports system reviewed and no additional complaints, except as documented Neuro Reports no additional complaints Psych Reports no additional complaints Endo Reports no additional complaints Lalit/Lymph Reports no additional complaints Aller/Immun Reports no additional complaints Telehealth Telehealth Telehealth Platform: [facility] Location of provider rendering services: practice address Location of patient: address on file Patient Identification confirmed using: Name, : Yes Telehealth method: video Patient verbally consented to treatment: Yes Patient verbally consented to billing insurance company: Yes Patient informed of any privacy concerns related to visit: Yes Results Reviewed Results Reviewed: Date of Service: 07/24/24 EXAMINATION: MR PROSTATE WITHOUT THEN WITH IV CONTRAST HISTORY: N42.32 - Atypical small acinar proliferation of prostate TECHNIQUE: 1.5T body coil survey of the pelvis was performed. Phase array coil imaging of the prostate was performed in multiplanar high resolution axial, coronal, sagittal fast spin echo T2 and axial T1 weighted imaging sequences. Axial diffusion imaging at intermediate and high field performed with ADC mapping. Next, 7.5 mL Gadavist was given by intravenous infusion, and dynamic axial imaging performed. COMPARISON: There are no prior studies for comparison. CLINICAL DATA: Most recent PSA: 4.12 ng/mL on 07/17/2024 PSA Density: 0.13 ng/mL squared Prostate Biopsy: Biopsy on 03/13/2024 demonstrating small acinar proliferation, suspicious for prostate carcinoma with a Gardner score 3+3 = 6. FINDINGS: Prostate size: 4.1 x 4.5 x 3.2 cm. Calculated prostate volume is 30.7 mL. Hemorrhage: There is T1 hyperintensity in the peripheral zone bilaterally compatible with hemorrhage. Transitional Zone: There is moderate heterogeneous nodular hypertrophy of the transitional zone. Peripheral Zone: Evaluation of the peripheral zone is limited by residual hemorrhage. No definite abnormality is seen. Seminal Vesicles/Ejaculatory Ducts: Symmetric and normal in signal and caliber. Pelvic Lymph Nodes: No obturator or internal iliac lymph nodes meeting size criteria for adenopathy. Marrow Signal: Normal marrow signal and enhancement without focal lesion identified. MR/MR Prostate wo/w con IMPRESSION: Limited examination due to the presence of residual hemorrhage. No discrete focus of abnormal signal intensity is identified to suggest clinically significant prostate carcinoma. PI-RADS 2: Low (clinically significant cancer is unlikely to be present) PI-RADS Assessment Categories PI-RADS 1: Very low (clinically significant cancer is highly unlikely to be present) PI-RADS 2: Low (clinically significant cancer is unlikely to be present) PI-RADS 3: Intermediate (the presence of clinically significant cancer is equivocal) PI-RADS 4: High (clinically significant cancer is likely to be present) PI-RADS 5: Very high (clinically significant cancer is highly likely to be present) Prostate Biopsy-Collected: 03/13/24 Location: [facility] Received: 03/13/24 Diagnosis A: Left base lateral: Atypical small acinar proliferation, suspicious for adenocarcinoma (3+ 3=6). B: Left base medial: Benign prostatic tissue; negative for malignancy. C: Left mid lateral: Benign prostatic tissue; negative for malignancy. D: Left mid medial: Benign prostatic tissue; negative for malignancy. E: Left apex lateral: Benign prostatic tissue; negative for malignancy. F: Left apex medial: Benign prostatic tissue; negative for malignancy. G: Right base lateral: Benign prostatic tissue; negative for malignancy. H: Right base medial: Benign prostatic tissue; negative for malignancy. I: Right mid lateral: Benign prostatic tissue; negative for malignancy. J: Right mid medial: Benign prostatic tissue; negative for malignancy. K: Right apex lateral: Benign prostatic tissue; negative for malignancy. L: Right apex medial: Benign prostatic tissue; negative for malignancy. Comment: Patchy inflammation and atrophy are also present. Clinical History Elevated PSA, BPH Date of Service: 02/08/23 EXAMINATION: MR ABDOMEN WITHOUT AND WITH CONTRAST CLINICAL INFORMATION: Abnormal levels of serum enzymes. COMPARISON: Abdominal ultrasound 04/20/2021 TECHNIQUE: MRI of the abdomen before and after the IV administration of 7.5 mL of Gadavist was obtained using routine sequences. FINDINGS: LUNG BASES: The visualized lung bases are unremarkable. KIDNEYS AND URETERS: Unremarkable. GALLBLADDER: Unremarkable. LIVER AND BILIARY TREE: A subcentimeter benign-appearing right hepatic lobe cyst. Significant loss of signal on opposed phase imaging compatible with hepatic steatosis. No intra or extrahepatic biliary duct dilatation. PANCREAS: A 1.1 cm cyst in the pancreatic neck. No solid components or pancreatic duct dilatation. This appears to communicate with the main pancreatic duct. SPLEEN: Unremarkable ADRENAL GLANDS: Unremarkable GASTROINTESTINAL TRACT: Unremarkable. LYMPH NODES: No lymphadenopathy. VASCULAR: Unremarkable ABDOMINAL WALL: Unremarkable. OSSEOUS STRUCTURES: Unremarkable. IMPRESSION: 1. Significant hepatic steatosis. 2. A 1.1 cm cyst in the pancreatic neck which appears to communicate with the main pancreatic duct, possibly a small side branch IPMN. No solid components or pancreatic duct dilatation. Per ACR white paper on management of incidental pancreatic cysts, recommend annual follow-up contrast enhanced MRCP for 5 years, and if no clinically significant interval growth imaging can be decreased to every other year x2 to document 9 years total stability. Assessment & Plan Assessment & Plan (1) Atypical small acinar proliferation of prostate: Code(s): N42.32 - Atypical small acinar proliferation of prostate Category: Medical (2) Elevated PSA: Code(s): R97.20 - Elevated prostate specific antigen [PSA] Category: Medical (3) Long-term use of immunosuppressant medication: Code(s): Z79.60 - intermediate teacher (current) use of unspecified immunomodulators and immunosuppressants Category: Medical Plan I discussed MRI--07/24/24 - PI-RADS 2: Low (clinically significant cancer is unlikely to be present), limited due to some hemorrhage present. PSA --07/17/24--4.12 ng/mL. Plan to continue active surveillance. MRI in 9 months, PSA in 6 months. Cont Tamsulosin. Medications: Refilled tamsulosin (Flomax) 0.4 mg PO BEDTIME 90 caps 3RF Patient Instructions: The patient had an opportunity to ask questions regarding treatment plan. The patient expressed understanding and agreement with the above treatment plan. The patient is aware they should contact our office by phone for worsening of their current condition or the appearance of new symptoms. Compliance is encouraged with any medications and followup testing that is ordered. It is a privilege to be allowed the opportunity to participate in the urologic care of your patient. If you have any questions or concerns regarding treatment for the above conditions please do not hesitate to contact me. The office telephone contact is [phone]. This note is constructed in part using voice recognition software. While every effort has been made to ensure accuracy cloth printing inspector errors may have been included. Yours sincerely, Claudette Ellison MD Coding Level of Care Code Tele Est Pt Level 4 (94378) Diagnoses Atypical small acinar proliferation of prostate N42.32 Elevated PSA R97.20 Long-term use of immunosuppressant medication Z79.60
--- OUTSIDE RECORDS SUMMARY | 2024-09-08 09:19 | XMS_ITS | Patient Health Record ---
Author Organization [facility] Address [address] [place], [place] [phone] Care Team Providers Care Rail Tractor Operator Name Role Phone No, PCP Primary Care Provider UnavailLola Mccarthy Unavailable Reason For Referral No Information Encounters Encounter Location Date Provider Diagnosis [facility] [address] [place] [id number] 05/08/2024 Lola Gilmore Plan Of Treatment No Information Insurance Providers Payer Name Payer Address Payer Phone Subscriber Number Group Number Insured Name Patient Relationship to Insured Coverage Start Date Coverage End Date [place] [address] [place] [address] [id number] Ry Helm Self - patient is the insured 5 [place] Medicaid C3 [address] [place], [place] [id number] Ry Helm Self - patient is the insured 5
--- OUTSIDE RECORDS SUMMARY | 2024-09-08 09:19 | XMS_ITS | Clinical Summary ---
Author Organization [facility] Facility Address [address] [place] [address] Care Team Providers Care Manager Army Name Role Phone Linda Hidalgo MD Primary Care Provider [phone] Allergies No known active allergies Medications metFORMIN [...] (1 of 3 - 19+ 3-dose series) 02/01 Colorectal Cancer Screening: Annual FOBT 2014 Colorectal Cancer Screening: Colonoscopy 2014 Colorectal Cancer Screening: Sigmoidoscopy 2014 Pneumococcal Vaccine: 50+ Years (1 of 1 - PCV) 015 Diabetes: Hemoglobin A1C 12/17/2022 08/06/2022 Diabetes: Ophthalmology Exam 12/17/2022 Diabetes: Pedal Pulse Checked 12/17/2022 Diabetes: Sensory Foot Exam 12/17/2022 Diabetes: Visual Foot Exam 12/17/2022 Influenza Vaccine (Season Ended) 2025 Procedures Procedure Name Priority Date/Time Associated Diagnosis [...] Most Recently Relevant to Health Maintenance Insurance [employer] Dual SNP ([id number]) [place] [id number] [employer] SNP ([id number]) Care Teams Manager Army Relationship Specialty Start Date End Date Linda Hidalgo MD [address] [place], [place] PCP - General Internal Medicine 08/17/22
== END 2024-09-08 11:22 | disposition home or self-care (01) ==
LOC: HO.HUSH 08:47
PROVIDERS: PCP Internal Medicine; Visit Provider Urology
DX: N42.32 Atypical small acinar proliferation of prostate (principal); R97.20 Elevated prostate specific antigen [PSA]; Z79.60 Long term (current) use of unspecified immunomodulators and immunosuppressants
CPT/HCPCS: 99214

== ENCOUNTER 2024-10-02 13:48 | Outpatient (REF) | payer OTHER, SELFPAY ==
--- OUTSIDE RECORDS SUMMARY | 2024-10-02 13:57 | XMS_ITS | Clinical Summary ---
Author Organization [facility] Facility Address [address] [place] [address] Care Team Providers Care Higher Level Teaching Assistant Name Role Phone Linda Hidalgo MD Primary Care Provider [phone] Allergies No known active allergies Medications metFORMIN [...] [facility] One Care Dual SNP (A2793) [place] [id number] CCA One Care Dual SNP (A2793) Care Teams Higher Level Teaching Assistant Relationship Specialty Start Date End Date Linda Hidalgo MD [address] [place], [place] PCP - General Internal Medicine 08/17/22
[2024-10-02 14:06] LABS: MANUAL DIFF FLAG NO
[2024-10-02 14:35] LABS: Basophils Percent Auto 0.3 % (0-2); Eosinophils Absolute Auto 0.1 X10*3/uL (0.0-0.4); Eosinophils Percent Auto 1.5 % (0-4); Hematocrit 44.9 % (42.0-52.0); Hemoglobin 15.6 g/dl (14.0-18.0); Imm Gran Abs Auto 0.02 X10*3/uL (0.00-0.03); Imm Gran Pct Auto 0.3 % (0.0-0.4); Lymphocytes Absolute Auto 2.4 X10*3/uL (1.2-4.9); Lymphocytes Percent Auto 32.2 % (20-40); Mean Corpuscular HGB Conc 34.7 g/dl (31.0-36.0); Mean Corpuscular Hemoglobin 29.3 pg (27.0-33.0); Mean Corpuscular Volume 84.4 fL (80.0-98.0); Mean Platelet Volume 10.2 fL (9.4-12.4); Monocytes Absolute Auto 0.7 X10*3/uL (0.1-1.2); Monocytes Percent Auto 9.6 % (2-11); Neutrophils Absolute Auto 4.1 x10*3/uL (2.0-8.3); Neutrophils Percent Auto 56.1 % (45-73); Platelet Count 234 X10*3/uL (160-400); Red Blood Count 5.32 X10*6/uL (4.60-5.80); Red Cell Distribution Width 12.6 % (11.0-16.0); White Blood Count 7.3 X10*3/uL (4.8-10.8)
[2024-10-02 15:13] LABS: Erythrocyte Sedimentation Rate 7 MM/HR (0-15)
[2024-10-02 16:13] LABS: Albumin Level 4.6 g/dL (3.5-5.0); Anion Gap 11 (12-20); Aspartate Amino Transferase 58 U/L (5-37); Bilirubin Total 0.8 mg/dL (0.0-1.0); Blood Urea Nitrogen 16 mg/dL (9-16); C Reactive Protein 1.11 mg/dL (< or = 0.50); Calcium 9.9 mg/dL (8.4-10.2); Carbon Dioxide 25 mmol/L (22-29); Chloride 106 mmol/L (96-108); Estimated Glomerular Filt Rate > 60; Glucose Random 247 mg/dL (60-115); Potassium 3.5 mmol/L (3.3-5.1); Sodium 138 mmol/L (135-145); Total Protein 7.4 g/dL (6.5-8.0)
[2024-10-02 16:49] LABS: Alanine Aminotransferase 80 U/L (0-40); Alkaline Phosphatase 109 U/L (39-117)
[2024-10-04 03:38] LABS: HBS Num1 85.52 mIU/mL (0-7.99); HBc Num1 0.04 S/CO (0.00-0.79); HBsAGNum1 0.25 S/CO (0.00-0.99); Hepatitis A Antibody IgM 0.27 Index (0-0.79); Hepatitis B Core Antibody Nonreactive (Nonreactive); Hepatitis B Surface Antigen Negative (Negative); ~HepC Num1 0.12 S/CO (0.00-0.79); ~Hepatitis A Antibody IgM Nonreactive (Nonreactive); ~Hepatitis B Surface Antibody REACTIVE (Nonreactive); ~Hepatitis C Antibody Nonreactive (Nonreactive)
[2024-10-05 12:34] LABS: TS Negative Control Passed; TS Panel A 1; TS Panel B 3; TS Positive Control Passed; TSpotTB Negative (Negative)
== END 2024-10-02 13:49 | disposition home or self-care (01) ==
LOC: HO.LAB 13:48
PROVIDERS: PCP Internal Medicine; Visit Provider Student in an Organized Health Care Education/Training Program
DX: M46.80 Other specified inflammatory spondylopathies, site unspecified (principal)
CPT/HCPCS: 36415; 80053; 85025; 85652; 86140; 86481; 86704; 86706; 86709; 86803; 87340

== ENCOUNTER 2024-10-15 11:20 | Outpatient (AMB) | payer OTHER, SELFPAY ==
--- NOTE | 2024-10-15 11:48 | A.OFFVIS_ITS ---
Vital Signs 10/15/24 11:54 Height 5 ft Weight 163 lb 9.328 oz BMI 31.9 BP 142/80 H Blood Pressure Location Rt brachial Position Sitting Pulse 76 Pulse Source Pulse Oximeter Pulse Oximetry (%) 95 Oxygen Delivery Method Room Air Intake Visit Reasons: Intake Note: Patient presents for follow up. Estimate Clerk Required: Yes Estimate Clerk Language: Workforce Planning Analyst Services: Estimate Clerk Present Estimate Clerk Name: Lynne [id number] Information Interpreted: non-clinical & clinical Allergies celecoxib [From CELEBREX] Allergy (Mild, Verified 10/15/24 11:53) HIVES,ITCHING,RASH Medication List - Last Reconciled 10/15/24 by Payal Kuhn MD amlodipine 10 mg PO DAILY 90 days atorvastatin 40 mg PO BEDTIME 90 days baclofen 10 mg PO BID blood pressure monitor As directed blood sugar diagnostic (FreeStyle Test strips) used 1 test strip once a day blood sugar diagnostic (FreeStyle Lite Strips) use one strip once a day as directed blood-glucose meter (FreeStyle Lite Meter kit) use once a day as directed cholecalciferol (vitamin D3) 50 mcg PO BID diclofenac sodium 1% (Arthritis Pain (diclofenac)) 2 grams topical TID PRN Enbrel SureClick (etanercept) 50 mg subcut QWEEK NS fluocinonide 0.05% 1 appl topical BID gabapentin 100 - 300 mg (1 - 3 x 100 mg) PO BEDTIME PRN hydroxyzine HCl mg PO ONCE lancets (FreeStyle Lancets) use 1 lancet once a day lisinopril 40 mg PO DAILY 90 days metformin 500 mg PO BID 90 days oxycodone 5 mg PO Q6-8H PRN 2 days sumatriptan succinate 25 mg PO ONCE PRN 30 days tamsulosin (Flomax) 0.4 mg PO BEDTIME tramadol 50 mg PO BID PRN HPI Comments Details: Patient is a 59 y.o. 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 Rojas. At that time he was following up for his non radiographic ankylosing spondylitis on Enbrel monotherapy. There is no evidence of active synovitis in his peripheral joints or with respect to his spine. No changes were made to his medication. He was complaining of increased aches and pains which was attributed to his underlying fibromyalgia and recommen dations were made. Today, Patient continues to complain of diffuse pain. No prolonged morning stiffness Rheumatologic History: + 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 Enbrel 06/2019 effective Current Rheumatology Medication(s): Enbrel 50mg SC weekly Gabapentin 100-300mg nightly Baclofen 10mg bid PFSH Medical History Hyperparathyroidism Long-term use of immunosuppressant medication History of substance abuse Right arm pain Moderate recurrent major depression Diabetes mellitus Erectile dysfunction Hypovitaminosis D Depression Migraines Essential hypertension Non-radiographic axial spondyloarthritis Surgical History Hx of colonoscopy History of orthopedic surgery History of carpal tunnel release History of arthroscopy of left shoulder History of appendectomy History of nasal surgery History of eye surgery History of hand surgery Family History Father Stroke Mother Hypertension Arthritis Osteoporosis Depression with anxiety Lung cancer Brother Cognitive developmental delay Psychiatric problem Mental health disorder Social History Housing: Homeless Alcohol intake: former Patient Tobacco Use Status: Former Tobacco user Tobacco use type: Cigarette Cigarettes Per Day: 20 Years Smoked: 20 e-Cigarette/Vaping Use: Never Used Second Hand Smoke Exposure: No service: No Current occupational status: retired Cognitive needs: No Hearing needs: No Vision needs: Yes (Glasses) Review of Systems Const Details: Review of Systems Constitutional: Denies fever, chills, weight loss ENT: Denies vision changes, eye pain or eye redness, dental caries, dry mouth GI: Denies nausea, vomiting, diarrhea, abdominal pain, change in BM Pulm: Denies SOB, KHAN, hemoptysis, wheezing Cards: Denies chest pain, palpitations Skin: Denies Raynaud's, rash, nail changes, photosensitivity, CARPET LAYER HELPER: Denies headaches, weakness, paresthesias, recurrent falls MSK: as per HPI All other systems reviewed and are unremarkable except noted above Physical Exam Vital Signs: Last Vital Signs Pulse 76 10/15/24 11:54 BP 142/80 H 10/15/24 11:54 Pulse Ox 95 10/15/24 11:54 Oxygen Delivery Method Room Air 10/15/24 11:54 BMI result Body Mass Index 31.9 Vital signs reviewed Physical Examination CONSTITUITIONAL Patient alert and cooperative. Well appearing and in no apparent painful distress HEENT Conjunctiva and sclera clear. No lymphadenopathy. CHEST/RESPIRATORY SYSTEM Normal respiratory effort and able to speak in complete sentences. Clear to auscultation bilaterally. No crackles, rales, rhonchi, wheezes heard. CARDIAC SYSTEM Regular rate and rhythm. S1 and S2 heard no murmurs. Radial pulses intact bilaterally MSK Hands: Able to make a fist. No synovitis noted to the MCPs, PIPs or DIPs. No tenderness to palpation of these joints. No deformities noted. Wrists: Full range of motion at the wrists without pain. No tenderness to palpation or synovitis noted to the wrists. Elbows: Full range of motion without pain. No tenderness, weakness, swelling, increased warmth or erythema. Shoulders: No tenderness, weakness, swelling, increased warmth or erythema. Knees: Full range of motion. No tenderness, swelling, increased warmth or erythema.?No effusion Ankles: Full range of motion. No tenderness, swelling, increased warmth or erythema.? Feet: Negative squeeze test. No tenderness to palpation or swelling of the MTPs. Tender points:?Tenderness to palpation of the bilateral trapezius, supraspinatus, greater trochanters, anterior costochondral junctions, bilateral gluteal areas, bilateral suboccipital muscle insertions SKIN Skin intact without rashes. Results Reviewed Results Reviewed: Laboratory Tests 04/04/24 10/02/24 07:33 14:04 WBC 7.3 RBC 5.32 Hgb 15.6 Hct 44.9 Plt Count 234 ESR 7 Sodium 138 Potassium 3.5 Chloride 106 Carbon Dioxide 25 BUN 16 Creatinine 0.85 Total Bilirubin 0.8 AST 58 H ALT 80 H Alkaline Phosphatase 109 C-Reactive Protein 0.34 1.11 H Assessment & Plan Assessment & Plan (1) Non-radiographic axial spondyloarthritis: Comment: + 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 Enbrel 06/2019 effective Code(s): M46.80 - Other specified inflammatory spondylopathies, site unspecified Category: Medical Plan: #HLA B27 positive non radiographoc ankylosing spondylitis Patient is a 59-year-old male with the HLA B27 positive non radiographic ankylosing spondylitis here today for follow-up. At this time there is no evidence clinically of the active inflammatory disease. He has mild elevation in his CRP compared to March 2024 however he is currently being evaluated for atypical prostate cells and this may be contributing to his elevated CRP. We will continue to monitor this closely. if his CRP worsens will consider escalation of therapy. Plan - Enbrel 50mg SC weekly - RTC 4 monthjs - Labs before visit: CBC, CMP, ESR, CRP (2) Fibromyalgia: Code(s): M79.7 - Fibromyalgia Category: Medical Plan: #Fibromyalgia Patient with the fibromyalgia as evidenced by a several tender points on examination on and some attacks symptom score elevated with whole-body pains. I again discussed with patient the nature of the disease of fibromyalgia and that it is a noninflammatory non autoimmune rheumatic condition. He has had helped in the past from baclofen and tramadol and so these will be refills. I encouraged light exercise and stretching. Plan - Gabapentin 100-300mg nightly - Baclofen 10mg bid - Tramadol 50mg bid (3) Encounter for monitoring of etanercept therapy: Code(s): Z51.81 - Encounter for therapeutic drug level monitoring; Z79.620 - ferry terminal agent (current) use of immunosuppressive biologic Plan: #Long-term Use of TNF Inhibitors: Enbrel Discussed with the patient the benefits and risks of TNF inhibitors for the management of the rheumatic condition Benefits include reduce pain, maintenance of remission and reduction of flares as well as progression of the disease Risks include injection sites/infusion reactions, serious infections (such as bacterial infections, opportunistic infections), malignancy, delaminating syndromes, autoimmune phenomena, CHF exacerbations, palmar plantar psoriasis and cytopenias Recommended rotating injection sites, and holding medication during and for up to 1 week after resolution of a febrile illness or open skin wound Plan I spent 30 minutes reviewing the record and labs, taking a history, examining the patient, discussing the treatment plan, ordering diagnostic work up and documenting in the medical record Medications: New tramadol 50 mg PO BID 60 tabs 5RF pain M79.7 - Fibromyalgia Refilled gabapentin 100 - 300 mg (1 - 3 x 100 mg) PO BEDTIME PRN 90 caps 5RF pain M79.7 - Fibromyalgia Enbrel SureClick (etanercept) 50 mg subcut QWEEK 4 mL 5RF NS M06.00 - Rheumatoid arthritis without rheumatoid factor, unspecified site baclofen 10 mg PO BID 60 tabs 5RF M46.80 - Other specified inflammatory spondylopathies, site unspecified Discontinued tramadol Discontinued Reason: Doctor's Order 50 mg PO BID PRN 60 tabs 0RF pain M54.50 - Low back pain, unspecified oxycodone Partial Fill upon patient request. Discontinued Reason: Doctor's Order 5 mg PO Q6-8H 2 days PRN 8 tabs 0RF pain Coding Level of Care Code Est Pt Level 4 (24351) Complex EM visit Add On G2211 Diagnoses Non-radiographic axial spondyloarthritis M46.80 Fibromyalgia M79.7 Encounter for monitoring of etanercept therapy Z51.81; Z79.620
[2024-10-15 11:54] VITALS: BP 142/80; PULSE 76; O2SAT 95; BMI 31.9
--- OUTSIDE RECORDS SUMMARY | 2024-10-15 13:24 | XMS_ITS | Clinical Summary ---
Author Organization [facility] Facility Address [address] [place] [address] Care Team Providers Care Cyberathlete Name Role Phone Linda Hidalgo MD Primary Care Provider [phone] Allergies No known active allergies Medications metFORMIN [...] [facility] One Care Dual SNP (A2793) [place] [id number] [employer] One Care Dual SNP (A2793) Care Teams Cyberathlete Relationship Specialty Start Date End Date Linda Hidalgo MD [address] [place], [place] PCP - General Internal Medicine 08/17/22
== END 2024-10-15 12:14 | disposition home or self-care (01) ==
LOC: HO.RHE 11:21
PROVIDERS: PCP Internal Medicine; Visit Provider Student in an Organized Health Care Education/Training Program
DX: M46.80 Other specified inflammatory spondylopathies, site unspecified (principal); M79.7 Fibromyalgia; Z51.81 Encounter for therapeutic drug level monitoring; Z79.620 Long term (current) use of immunosuppressive biologic
CPT/HCPCS: 99214; G2211

== ENCOUNTER → 2024-10-15 11:20 | Outpatient (BNVA) | payer OTHER, SELFPAY | PROVIDERS: PCP Internal Medicine; Visit Provider Student in an Organized Health Care Education/Training Program | DX: M79.7 Fibromyalgia (principal); M46.90 Unspecified inflammatory spondylopathy, site unspecified; Z51.81 Encounter for therapeutic drug level monitoring; Z79.620 Long term (current) use of immunosuppressive biologic | CPT/HCPCS: 99212 ==

== ENCOUNTER 2024-10-16 08:26 | Outpatient (REF) | payer OTHER, SELFPAY ==
--- OUTSIDE RECORDS SUMMARY | 2024-10-16 08:33 | XMS_ITS | Clinical Summary ---
Author Organization [facility] Facility Address [address] [place] [address] Care Team Providers Care Senior It Business Analyst Name Role Phone Linda Hidalgo MD Primary Care Provider [phone] Allergies No known active allergies Medications metFORMIN [...] [employer] One Care Dual SNP (A2793) [place] [id number] [employer] One Care Dual SNP (A2793) Care Teams Senior It Business Analyst Relationship Specialty Start Date End Date Linda Hidalgo MD [address] [place], [place] PCP - General Internal Medicine 08/17/22
[2024-10-16 09:48] LABS: Albumin Level 4.5 g/dL (3.5-5.0); Calcium 8.9 mg/dL (8.4-10.2)
[2024-10-16 09:59] LABS: Vitamin D 25-OH Total 25.7 ng/mL (>30)
[2024-10-16 10:02] LABS: Alanine Aminotransferase 73 U/L (0-40); Albumin Level 4.6 g/dL (3.5-5.0); Alkaline Phosphatase 108 U/L (39-117); Anion Gap 10 (12-20); Aspartate Amino Transferase 44 U/L (5-37); Bilirubin Total 0.8 mg/dL (0.0-1.0); Blood Urea Nitrogen 13 mg/dL (9-16); Calcium 8.9 mg/dL (8.4-10.2); Carbon Dioxide 25 mmol/L (22-29); Chloride 108 mmol/L (96-108); Cholesterol 203 mg/dL (<200); Estimated Glomerular Filt Rate > 60; Glucose Fasting 187 mg/dL (60-99); HDL Cholesterol 36 mg/dL (>40); LDL Cholesterol Calculated 126 mg/dL (<100); Potassium 3.5 mmol/L (3.3-5.1); Sodium 139 mmol/L (135-145); Triglycerides 205 mg/dL (<150); Vitamin D 25-OH Total 25.8 ng/mL (>30)
[2024-10-16 11:15] LABS: Parathyroid Hormone Intact 129.4 pg/mL (8.7-77.1)
[2024-10-16 14:56] LABS: Creatinine Urine 101.01 mg/dL; Microalbum/Creatinine Ratio Ur 450.4 ug/mg cr (<30)
== END 2024-10-16 08:27 | disposition home or self-care (01) ==
LOC: HO.LAB 08:26
PROVIDERS: Internal Medicine Endocrinology, Diabetes & Metabolism; Nurse Practitioner Adult Health; PCP Internal Medicine; Visit Provider Internal Medicine
DX: E78.5 Hyperlipidemia, unspecified (principal); E11.65 Type 2 diabetes mellitus with hyperglycemia; R80.9 Proteinuria, unspecified; E55.9 Vitamin D deficiency, unspecified; E21.3 Hyperparathyroidism, unspecified
CPT/HCPCS: 36415; 80053; 80061; 82040; 82043; 82306; 82310; 82330; 82570; 83970

== ENCOUNTER 2024-10-21 08:22 | Outpatient (AMB) | payer OTHER, SELFPAY ==
--- NOTE | 2024-10-21 08:36 | MHC.PC.OV ---
Vital Signs 10/21/24 08:37 Height 5 ft Weight 162 lb BMI 31.6 BP 146/90 H Blood Pressure Location Lt brachial Position Sitting Intake Visit Reasons: dm Intake Note: Patient here for a follow up DM Machine Binder Stripper Required: No Accompanied by: Self / Same As Patient Allergies celecoxib (From CELEBREX) Allergy (Mild, Verified 10/21/24 08:48) HIVES,ITCHING,RASH Medication List - Last Reconciled 10/21/24 by Linda Arambula MD amlodipine 10 mg PO DAILY 90 days atorvastatin 40 mg PO BEDTIME 90 days baclofen 10 mg PO BID blood pressure monitor As directed blood sugar diagnostic (FreeStyle Test strips) used 1 test strip once a day blood sugar diagnostic (FreeStyle Lite Strips) use one strip once a day as directed blood-glucose meter (FreeStyle Lite Meter kit) use once a day as directed cholecalciferol (vitamin D3) 50 mcg PO BID diclofenac sodium 1% (Arthritis Pain (diclofenac)) 2 grams topical TID PRN Enbrel SureClick (etanercept) 50 mg subcut QWEEK NS fluocinonide 0.05% 1 appl topical BID gabapentin 100 - 300 mg (1 - 3 x 100 mg) PO BEDTIME PRN hydroxyzine HCl mg PO ONCE lancets (FreeStyle Lancets) use 1 lancet once a day lisinopril 40 mg PO DAILY 90 days metformin 500 mg PO BID 90 days sumatriptan succinate 25 mg PO ONCE PRN 30 days tamsulosin (Flomax) 0.4 mg PO BEDTIME tramadol 50 mg PO BID Tobacco use date assessed: 06/17/24 Dental Screening Dental Screen Date: 06/17/24 HPI HPI Comments History of Present Illness Details This is a 59-year-old male with diabetes mellitus type 2, hypertension, hyperlipidemia, non radiographic axial spondyloarthropathy, mild to moderate recurrent major depression and anxiety, hyperparathyroidism and low vitamin-D that comes today for follow-up on his conditions. A1c of 8% which the goal is less than 7%. This is follow by Endocrinology. Blood pressure elevated and will be recheck in 3 weeks by nurse navigator. LDL not on goal and I will increase atorvastatin from 40 mg to 80 mg. On Enbrel for his spondyloarthropathy and this is follow by Rheumatology. I will refer him to psych outpatient for depression because he is afraid to start any medication. He currently is homeless and that has increase his depression and anxiety. He also has microalbuminuria and was referred to nephrology. Low vitamin-D might be the cause of the hyperparathyroidism this will be monitor. [facility] Medical History (Updated 10/21/24 @ 08:55 by Linda Arambula MD) Hyperparathyroidism Long-term use of immunosuppressant medication History of substance abuse Right arm pain Moderate recurrent major depression Diabetes mellitus Erectile dysfunction Hypovitaminosis D Depression Migraines Essential hypertension Non-radiographic axial spondyloarthritis Surgical History Hx of colonoscopy History of orthopedic surgery History of carpal tunnel release History of arthroscopy of left shoulder History of appendectomy History of nasal surgery History of eye surgery History of hand surgery Family History Father Stroke Mother Hypertension Arthritis Osteoporosis Depression with anxiety Lung cancer Brother Cognitive developmental delay Psychiatric problem Mental health disorder Social History Housing: Homeless Alcohol intake: former Patient Tobacco Use Status: Former Tobacco user Tobacco use type: Cigarette Cigarettes Per Day: 20 Years Smoked: 20 e-Cigarette/Vaping Use: Never Used Second Hand Smoke Exposure: No service: No Current occupational status: retired Cognitive needs: No Hearing needs: No Vision needs: Yes (Glasses) Questionnaire PHQ-9 Over the last 2 weeks, how often have you been bothered by any of the following problems? 1. Little interest or pleasure in doing things: several days 2. Feeling down, depressed, or hopeless: more than half the days 3. Trouble falling or staying asleep, or sleeping too much: several days 4. Feeling tired or having little energy: more than half the days 5. Poor appetite or overeating: more than half the days 6. Feeling bad about yourself - or that you are a failure or have let yourself or your family down: more than half the days 7. Trouble concentrating on things, such as reading the newspaper or watching television: more than half the days 8. Moving or speaking so slowly that other people could have noticed. Or the opposite - being so fidgety or restless that you have been moving around a lot more than usual: several days 9. Thoughts that you would be better off or of hurting yourself in some way: several days Total score: 14 Depression Screening Interpretation: Positive Depression Screening Follow-up: Existing condition, In treatment, Community Mental Health Worker F/U and Follow-up Visit Requested Depression Screening Done: Yes 32516 - PHQ-9 Billing: Yes Source: Developed by Drs. Toy Blair, Tatianna Pina, Diego Jimenes and colleagues, with an educational lissette from [employer]. Thrive Questionnaire Date Thrive assessed: 06/17/24 I am a: Patient What is your living situation today?: I do not have a steady places to live I am living in a car Within the past 12 months, did the food you bought not last and you didn't have the money to get more?: Sometimes True Within the past 12 months, did you worry whether your food would run out before you got money to buy more?: Sometimes True Do you have trouble paying for medicines?: No Do you have trouble getting transportation to medical appointments?: No Do you have trouble paying your heating and electricity bill?: No Do you have trouble taking care of your child, family member or friend?: Yes Do you have trouble with day-to-day activities such as bathing, preparing meals, shopping, managing finances, etc.?: No Are you currently unemployed and looking for a job?: No Are you interested in more education?: Yes Please select the resources that you would like help with: Housing/Senior Living Currently or been in a relationship where the following occur: No concerns reported THRIVE Score: 3 AUDIT C Alcohol Use Questionnaire (AUDIT-C) 1. How often do you have a drink containing alcohol?: Never Total Score: 0 JANETH-7 AMB Questionnaire JANETH-7 Date JANETH - 7 assessed: 06/17/24 Feeling nervous, anxious, or on edge: 2 = More than half the days Not being able to stop or control worryin = Several days Worrying too much about different things: 1 = Several days Trouble relaxin = Several days Being so restless that it is hard to sit still: 2 = More than half the days Becoming easily annoyed or irritable: 1 = Several days Feeling afraid as if something awful might happen: 1 = Several days Total JANETH-7 score (0-4 normal; 5-9 mild; 10-14 moderate; 15-21 severe): 9 Source: Developed by Drs. Toy Blair, Tatianna Pina, Diego Jimenes and colleagues, with an educational lissette from [employer]. JANETH-7 Assessment Billing JANETH-7 Assessment Tool: JANETH-7 Assessment 41502 Review of Systems Const All systems reviewed & are unremarkable except as noted in HPI and below Card Denies chest pain at rest, Denies chest pain with activity, Denies edema, Denies irregular heart rhythm, Denies claudication, Denies dyspnea, Denies dyspnea on exertion, Denies orthopnea, Denies paroxysmal nocturnal dyspnea and Denies slow heart rate Resp Denies cough, Denies dyspnea and Denies dyspnea on exertion Musc Denies atrophy, Denies deformity and Denies limited range of motion Skin/Breast Denies bleeding lesions, Denies changing lesions and Denies rash Physical exam (Primary Care) Vital Signs: Last Vital Signs BP 146/90 H 10/21/24 08:37 BMI result Body Mass Index 31.6 Tobacco/Smoking Status: Tobacco use Status Tobacco use date assessed 06/17/24 10/21/24 08:45 Patient Tobacco Use Status Former Tobacco user 10/21/24 08:45 Tobacco use type Cigarette 10/21/24 08:45 e-Cigarette/Vaping Use Never Used 10/21/24 08:45 PHQ-9: PHQ-9 Score PHQ-9: Total score 14 10/21/24 08:52 Depression Screening Interpretation: Positive Depression Screening Follow-up: Existing condition, In treatment, Community Mental Health Worker F/U and Follow-up Visit Requested Thrive Assessment: Date of Thrive Assessment Date Thrive assessed 06/17/24 10/21/24 08:45 Currently or been in a relationship where the following occur: No concerns reported Resp Effort & Inspection: normal respiratory effort Auscultation: clear to auscultation bilaterally Cardio Jugular venous distension: no JVD Rate: regular rate Rhythm: regular rhythm Heart sounds: S1 normal heart sound present and S2 normal heart sound present Extrem General: Yes full ROM Results AMB Hemoglobin A1c AMB Hemoglobin A1c 8.0 % Last Edit by BILL Pang on 10/21/24 08:54 Results Reviewed Results Reviewed: Laboratory Last Values Hgb A1c (Clinic) 8.0 % (4.0-6.0) H 10/21/24 08:36 Coding Level of Care Code Est Pt Level 4 (16960) Complex EM visit Add On G2211 Diagnoses Microalbuminuria R80.9 Moderate recurrent major depression F33.1 Essential hypertension I10 Hyperlipidemia with target LDL less than 70 E78.5 Hyperparathyroidism E21.3 Hypovitaminosis D E55.9 Non-radiographic axial spondyloarthritis M46.80 Type 2 diabetes mellitus with hyperglycemia, without long-term current use of insulin E11.65 Diabetes mellitus type: type 2 Diabetes mellitus terminal superintendent insulin use: without terminal superintendent use Diabetes mellitus complication status: with hyperglycemia Additional Codes JANETH-7 Assessment Billing - JANETH-7 Assessment Tool: JANETH-7 Assessment 67092 ([id number]) PHQ-9 - 24684 - PHQ-9 Billing: Yes ([id number]) Time Spent (min) 24 Assessment & Plan Assessment & Plan (1) Microalbuminuria: Code(s): R80.9 - Proteinuria, unspecified Category: Medical (2) Moderate recurrent major depression: Code(s): F33.1 - Major depressive disorder, recurrent, moderate Category: Medical (3) Essential hypertension: Code(s): I10 - Essential (primary) hypertension Category: Medical (4) Hyperlipidemia with target LDL less than 70: Code(s): E78.5 - Hyperlipidemia, unspecified Category: Medical (5) Hyperparathyroidism: Code(s): E21.3 - Hyperparathyroidism, unspecified Category: Medical (6) Hypovitaminosis D: Code(s): E55.9 - Vitamin D deficiency, unspecified Category: Medical (7) Non-radiographic axial spondyloarthritis: Comment: + 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 Enbrel 06/2019 effective Code(s): M46.80 - Other specified inflammatory spondylopathies, site unspecified Category: Medical (8) Diabetes mellitus: Code(s): E11.9 - Type 2 diabetes mellitus without complications Category: Medical Qualifiers: Diabetes mellitus type: type 2 Diabetes mellitus terminal superintendent insulin use: without halfway use Diabetes mellitus complication status: with hyperglycemia Qualified Code(s): E11.65 - Type 2 diabetes mellitus with hyperglycemia Plan Referred to nephrology for microalbuminuria. Referred to psych outpatient for depression with anxiety. Increase atorvastatin from 40 mg to 80 mg for hyperlipidemia. LDL goal is less than 70. Recheck blood pressure with nurse navigator in 3 weeks. Blood pressure goal is equal or less than 130/80. Continue current medications. A1c goal is equal or less than 7%. Continue follow-up with endocrinology. Orders: Orders AMB Hemoglobin A1c Today E11.65 - Type 2 diabetes mellitus with hyperglycemia Referrals Psychiatry Outpatient Consultation Service F33.1 - Major depressive disorder, recurrent, moderate Nephrology Referral R80.9 - Proteinuria, unspecified Medications: New atorvastatin (Lipitor) 80 mg PO BEDTIME 90 tabs 1RF 90 days Discontinued atorvastatin Discontinued Reason: Patient Completed Course 40 mg PO BEDTIME 90 days 90 tabs 1RF
[2024-10-21 08:37] VITALS: BP 146/90; BMI 31.6
--- OUTSIDE RECORDS SUMMARY | 2024-10-21 08:39 | XMS_ITS | Clinical Summary ---
Author Organization [facility] Facility Address [address] [place] [id number] Care Team Providers Care Oral Surgery Physician Name Role Phone Linda Hidalgo MD Primary Care Provider [phone] Allergies No known active allergies Medications metFORMIN [...] [employer] Care Dual SNP (A2793) [place] [id number] [employer] One Care Dual SNP (A2793) Care Teams Oral Surgery Physician Relationship Specialty Start Date End Date Linda Hidalgo MD [address] [place], [place] PCP - General Internal Medicine 08/17/22
== END 2024-10-21 09:02 | disposition home or self-care (01) ==
LOC: HO.HMCH 08:23
PROVIDERS: PCP Internal Medicine; Visit Provider Internal Medicine
DX: I10 Essential (primary) hypertension (principal); R80.9 Proteinuria, unspecified; E11.65 Type 2 diabetes mellitus with hyperglycemia; F33.1 Major depressive disorder, recurrent, moderate; E78.5 Hyperlipidemia, unspecified; E21.3 Hyperparathyroidism, unspecified; E55.9 Vitamin D deficiency, unspecified; M46.80 Other specified inflammatory spondylopathies, site unspecified

== ENCOUNTER → 2024-10-21 08:22 | Outpatient (BNVA) | payer OTHER, SELFPAY | PROVIDERS: PCP Internal Medicine; Visit Provider Internal Medicine | DX: E11.65 Type 2 diabetes mellitus with hyperglycemia (principal); E78.5 Hyperlipidemia, unspecified; F41.9 Anxiety disorder, unspecified; E21.3 Hyperparathyroidism, unspecified; E55.9 Vitamin D deficiency, unspecified; R80.9 Proteinuria, unspecified; F33.1 Major depressive disorder, recurrent, moderate; I10 Essential (primary) hypertension; M46.80 Other specified inflammatory spondylopathies, site unspecified | CPT/HCPCS: 83036; 96127; 99212 ==

== ENCOUNTER 2024-11-20 14:30 | Outpatient (AMB) | payer OTHER, SELFPAY ==
--- NOTE | 2024-11-20 14:31 | HO.NEPHOV ---
Vital Signs 11/20/24 14:32 Height 5 ft Weight 163 lb BMI 31.8 BP 140/68 H Blood Pressure Location Lt brachial Position Sitting Pulse 78 Pulse Source Pulse Oximeter Pulse Oximetry (%) 97 Oxygen Delivery Method Room Air Intake Visit Reasons: INP-Proteinuria/ Conf Operator Electronic Warfare Required: Yes Operator Electronic Warfare Name: Luna [id number] Accompanied by: Self / Same As Patient Allergies celecoxib (From CELEBREX) Allergy (Mild, Verified 11/20/24 14:34) HIVES,ITCHING,RASH HPI Comments Details: I had the privilege of seeing Ry in consultation for proteinuria. He is 59 years and has been diabetic for sometime. His last A1c was 8.0. He denies retinopathy but is known to have hypertension. He is HLA B27 positive and was treated with Methotrexate in the past . It was changed to Enbrel when he developed transminitis.He had high PSA and had undergone prostatic biopsy as well as MRI of prostate. He denies CAD, CHF, CVA , PAD, hematuria, carotid stenosis, edema, hematuria, dysuria, epistaxis, photosensitivity, sensori neural deafness. He denied hepatitis,HIV, active drug use or excess NSAID intake ( has previous H/O cocaine use, pills and glue use). His last serum creatinine was 0.9 PFSH Medical History Hyperparathyroidism Long-term use of immunosuppressant medication History of substance abuse Right arm pain Moderate recurrent major depression Diabetes mellitus Erectile dysfunction Hypovitaminosis D Depression Migraines Essential hypertension Non-radiographic axial spondyloarthritis Surgical History Hx of colonoscopy History of orthopedic surgery History of carpal tunnel release History of arthroscopy of left shoulder History of appendectomy History of nasal surgery History of eye surgery History of hand surgery Family History Father Stroke Mother Hypertension Arthritis Osteoporosis Depression with anxiety Lung cancer Brother Cognitive developmental delay Psychiatric problem Mental health disorder Social History Housing: Homeless Alcohol intake: former Patient Tobacco Use Status: Former Tobacco user Tobacco use type: Cigarette Cigarettes Per Day: 20 Years Smoked: 20 e-Cigarette/Vaping Use: Never Used Second Hand Smoke Exposure: No service: No Current occupational status: retired Cognitive needs: No Hearing needs: No Vision needs: Yes (Glasses) Review of Systems Const All systems reviewed & are unremarkable except as noted in HPI and below Physical Exam Vital Signs: Last Vital Signs Pulse 78 11/20/24 14:32 BP 140/68 H 11/20/24 14:32 Pulse Ox 97 11/20/24 14:32 Oxygen Delivery Method Room Air 11/20/24 14:32 BMI result Body Mass Index 31.8 Const General: comfortable and no acute distress Orientation/consciousness: patient oriented x3 HEENT Head: Yes normocephalic Mouth: Normal oral and palatal mucosa present Eyes EOM: EOMs intact bilaterally Neck Neck: Yes supple Resp Auscultation: clear to auscultation bilaterally Cardio Jugular venous distension: no JVD Rate: regular rate GI Palpation (GI): Soft to palpation Auscultation: normal bowel sounds General: Yes no CVA tenderness Back/Spine/Pelvis Back: no CVA tenderness Skin General skin exam: no rashes or lesions noted Neuro General: patient oriented x3 and moves all extremities Extrem General: Yes no pedal edema Results Reviewed Nephrology Results: Hgb, (14.0-18.0) 15.6 g/dl 10/02/24 WBC, (4.8-10.8) 7.3 X10*3/uL 10/02/24 Plt Count, (160-400) 234 X10*3/uL 10/02/24 Sodium, (135-145) 139 mmol/L 10/16/24 Potassium, (3.3-5.1) 3.5 mmol/L 10/16/24 Chloride, (96-108) 108 mmol/L 10/16/24 Carbon Dioxide, (22-29) 25 mmol/L 10/16/24 BUN, (9-16) 13 mg/dL 10/16/24 Creatinine, (0.5-1.4) 0.95 mg/dL 10/16/24 Calcium, (8.4-10.2) 8.9 mg/dL Δ 10/16/24 PTH Intact, (8.7-77.1) 129.4 pg/mL H 10/16/24 Urine Creatinine 101.01 mg/dL 10/16/24 Assessment & Plan Assessment & Plan (1) Hypertension: Code(s): I10 - Essential (primary) hypertension Category: Medical Qualifiers: Hypertension type: primary hypertension Qualified Code(s): I10 - Essential (primary) hypertension (2) Proteinuria: Code(s): R80.9 - Proteinuria, unspecified Category: Medical Qualifiers: Proteinuria type: other Qualified Code(s): R80.8 - Other proteinuria Plan Ry has 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 His last HbA1c was 8.0. He denies retinopathy or neuropathy. He is on ACEI as well as Amlodipine. His BP needs to maintained @ less than 130/80 mm of Hg. I started him on Jardiance 10 mg daily. I ordered imaging studies as well as extensive work up. He should maintain good hydration and avoid NSAID's. There is no indication for any renal biopsy now. Further management is pending evolving data Orders: Orders Hepatitis B Surface Antigen 1 Month I10 - Essential (primary) hypertension, R80.9 - Proteinuria, unspecified Neutrophil Cytoplasma Ab 1 Month I10 - Essential (primary) hypertension, R80.9 - Proteinuria, unspecified Proteinase 3 PR3 Antibodies 1 Month I10 - Essential (primary) hypertension, R80.9 - Proteinuria, unspecified Phospholipase A2 Receptor Pnl 1 Month I10 - Essential (primary) hypertension, R80.9 - Proteinuria, unspecified Protein Creatinine Ratio, Ur 1 Month I10 - Essential (primary) hypertension, R80.9 - Proteinuria, unspecified Immunofixation Pnl, Serum 1 Month I10 - Essential (primary) hypertension, R80.9 - Proteinuria, unspecified Immunofixation, Random Urine 1 Month I10 - Essential (primary) hypertension, R80.9 - Proteinuria, unspecified Hepatitis B Core Antibody 1 Month I10 - Essential (primary) hypertension, R80.9 - Proteinuria, unspecified Anti DNA DS Antibody 1 Month I10 - Essential (primary) hypertension, R80.9 - Proteinuria, unspecified Myeloperoxidase Antibody 1 Month I10 - Essential (primary) hypertension, R80.9 - Proteinuria, unspecified Anti Glomerular Basement Memb 1 Month I10 - Essential (primary) hypertension, R80.9 - Proteinuria, unspecified Complement C3 1 Month I10 - Essential (primary) hypertension, R80.9 - Proteinuria, unspecified Complement C4 1 Month I10 - Essential (primary) hypertension, R80.9 - Proteinuria, unspecified Immunofixation Pnl, Serum 4 Weeks I10 - Essential (primary) hypertension, R80.9 - Proteinuria, unspecified US renal BI 1 Month I10 - Essential (primary) hypertension, R80.9 - Proteinuria, unspecified Medications: New empagliflozin (Jardiance) 10 mg PO DAILY 30 tabs 3RF Coding Level of Care Code New Pt Level 4 (68414) Diagnoses Primary hypertension I10 Hypertension type: primary hypertension Other proteinuria R80.8 Proteinuria type: other
[2024-11-20 14:32] VITALS: BP 140/68; PULSE 78; O2SAT 97; BMI 31.8
--- OUTSIDE RECORDS SUMMARY | 2024-11-20 14:33 | XMS_ITS | Clinical Summary ---
Author Organization [facility] Facility Address [address] [place] [address] Care Team Providers Care Barrel Repairer Name Role Phone Linda Hidalgo MD Primary Care Provider Allergies No known active allergies Medications metFORMIN [...] Visual Foot Exam 12/17/2022 Influenza Vaccine (#1) 2025 Procedures Procedure Name Priority Date/Time Associated [...] CCA One Care Dual SNP ([id number]) [place] [id number] CCA One Care Dual SNP ([id number]) Care Teams Barrel Repairer Relationship Specialty Start Date End Date Linda Hidalgo MD [address] [place], [place] PCP - General Internal Medicine 08/17/22
--- OUTSIDE RECORDS SUMMARY | 2024-11-20 14:33 | XMS_ITS | Patient Health Record ---
Author Organization [facility] Address [address] [place], [place] [id number] Care Team Providers Care Fork Operator Name Role Phone NO, PCP Primary Care Provider [phone] Lola Gilmore Unavailable Reason For Referral No Information Encounters Encounter Location Date Provider Diagnosis [facility] [address] [place] [id number] 05/08/2024 Lola Gilmore Plan Of Treatment No Information Insurance Providers Payer Name Payer Address Payer Phone Subscriber Number Group Number Insured Name Patient Relationship to Insured Coverage Start Date Coverage End Date [place] Medicaid Standard [address] [place] [address] [id number] Ry Helm Self - patient is the insured 5 [place] Medicaid C3 [address] [place], [place] [id number] yR Helm Self - patient is the insured 5
== END 2024-11-20 14:54 | disposition home or self-care (01) ==
LOC: HO.HKA 14:31
PROVIDERS: PCP Internal Medicine; Visit Provider Internal Medicine Nephrology
DX: I10 Essential (primary) hypertension (principal); R80.8 Other proteinuria
CPT/HCPCS: 99204

== ENCOUNTER → 2024-11-20 14:30 | Outpatient (BNVA) | payer OTHER, SELFPAY | PROVIDERS: PCP Internal Medicine; Visit Provider Internal Medicine Nephrology | DX: I10 Essential (primary) hypertension (principal); R80.8 Other proteinuria | CPT/HCPCS: 99202 ==

== ENCOUNTER 2024-12-07 09:31 | Outpatient (AMB) | payer OTHER, SELFPAY ==
[2024-12-07 09:33] VITALS: BP 142/70; PULSE 62; O2SAT 98; BMI 31.0
--- NOTE | 2024-12-07 09:33 | A.OFFVIS_ITS ---
Vital Signs 12/07/24 09:33 Height 5 ft Weight 158 lb 11.725 oz BMI 31.0 BP 142/70 H Blood Pressure Location Rt brachial Position Sitting Pulse 62 Pulse Source Pulse Oximeter Pulse Oximetry (%) 98 Oxygen Delivery Method Room Air Intake Visit Reasons: f/u hyperparathyroidism Intake Note: Patient presents today for a follow-up on Hyperparathyroidism, last seen by Alyx Gale on 06/16/2024. Basic Sciences Dean Required: Yes Basic Sciences Dean Language: Bakery Supervisor Services: Basic Sciences Dean Present Basic Sciences Dean Name: BILL Mina Accompanied by: Self / Same As Patient Allergies celecoxib (From CELEBREX) Allergy (Mild, Verified 12/07/24 09:34) HIVES,ITCHING,RASH Medication List - Last Reconciled 12/07/24 by Toy Simpson MD amlodipine 10 mg PO DAILY 90 days atorvastatin (Lipitor) 80 mg PO BEDTIME 90 days baclofen 10 mg PO BID blood pressure monitor As directed blood sugar diagnostic (FreeStyle Test strips) used 1 test strip once a day blood sugar diagnostic (FreeStyle Lite Strips) use one strip once a day as directed blood-glucose meter (FreeStyle Lite Meter kit) use once a day as directed cholecalciferol (vitamin D3) 125 mcg PO DAILY diclofenac sodium 1% (Arthritis Pain (diclofenac)) 2 grams topical TID PRN empagliflozin (Jardiance) 10 mg PO DAILY Enbrel SureClick (etanercept) 50 mg subcut QWEEK NS fluocinonide 0.05% 1 appl topical BID gabapentin 100 - 300 mg (1 - 3 x 100 mg) PO BEDTIME PRN hydroxyzine HCl 10 mg PO DAILY lancets (FreeStyle Lancets) use 1 lancet once a day lisinopril 40 mg PO DAILY 90 days metformin 500 mg PO BID 90 days sumatriptan succinate 25 mg PO ONCE PRN 30 days tamsulosin (Flomax) 0.4 mg PO BEDTIME tramadol 50 mg PO BID HPI Comments Details: 59 YO M with PMHx hypercalcemia who is seen in consultation at the request of PCP for Hypercalcemia. First noted to have high calcium couple of yrs . Recent calciums have been normal but PTH remains elevated with low normal vitamin-D Not Currently using Calcium supplement . Takes 5000 IU of Vitamin D daily. Not Currently using HCTZ. Kidney stones: No Osteoporosis: No History of [place] use: No Biotin use: No Family history of high calcium or kidney stones: No Renal imaging: yes DXA: Labs: Borderline low 25 hydroxy vitamin-D, elevated PTH PFSH Medical History Hyperparathyroidism Long-term use of immunosuppressant medication History of substance abuse Right arm pain Moderate recurrent major depression Diabetes mellitus Erectile dysfunction Hypovitaminosis D Depression Migraines Essential hypertension Non-radiographic axial spondyloarthritis Surgical History Hx of colonoscopy History of orthopedic surgery History of carpal tunnel release History of arthroscopy of left shoulder History of appendectomy History of nasal surgery History of eye surgery History of hand surgery Family History Father Stroke Mother Hypertension Arthritis Osteoporosis Depression with anxiety Lung cancer Brother Cognitive developmental delay Psychiatric problem Mental health disorder Social History Housing: Homeless Alcohol intake: former Patient Tobacco Use Status: Former Tobacco user Tobacco use type: Cigarette Cigarettes Per Day: 20 Years Smoked: 20 e-Cigarette/Vaping Use: Never Used Second Hand Smoke Exposure: No service: No Current occupational status: retired Cognitive needs: No Hearing needs: No Vision needs: Yes (Glasses) Physical Exam Vital Signs: Last Vital Signs Pulse 62 12/07/24 09:33 BP 142/70 H 12/07/24 09:33 Pulse Ox 98 12/07/24 09:33 Oxygen Delivery Method Room Air 12/07/24 09:33 BMI result Body Mass Index 31.0 Assessment & Plan Assessment & Plan (1) Vitamin D deficiency: Code(s): E55.9 - Vitamin D deficiency, unspecified Category: Medical Plan: See plan for hyperparathyroidism (2) Hyperparathyroidism: Code(s): E21.3 - Hyperparathyroidism, unspecified Category: Medical Plan: This is a 58-year-old male with a history of elevated PTH. Differential diagnosis includes secondary hyperparathyroidism versus primary hyperparathyroidism with coexistent vitamin-D deficiency masking hypercalcemia . He did have elevated urinary calcium which could suggest calcium leak as another differential diagnosis causing secondary hyperparathyroidism or primary hyperparathyroidism driving hypercalciuria The plan is to recheck calcium, albumin, PTH, 25 hydroxy vitamin-D as well as 24 hour urine for calcium and creatinine iat BRL ([facility]) . There is no history of kidney stones on ultrasound or osteoporosis but patient has clinical picture consistent with primary hyperparathyroidism, may be a candidate for parathyroid exploration considering the hypercalciuria Orders: Orders Calcium, 24 Hr Ur Today E55.9 - Vitamin D deficiency, unspecified Creatinine, 24 Hr Group Today E55.9 - Vitamin D deficiency, unspecified Coding Level of Care Code Est Pt Level 3 (11777) Diagnoses Vitamin D deficiency E55.9 Hyperparathyroidism E21.3
--- OUTSIDE RECORDS SUMMARY | 2024-12-07 10:03 | XMS_ITS | Patient Health Record ---
Author Organization [facility] Address [address] [place], [place] [phone] Care Team Providers Care Farmworkers Name Role Phone NO, PCP Primary Care Provider [phone] Lola Gilmore Unavailable Reason For Referral No Information Encounters Encounter Location Date Provider Diagnosis [facility] [address] [place] [id number] 05/08/2024 Lola Gilmore Plan Of Treatment No Information Insurance Providers Payer Name Payer Address Payer Phone Subscriber Number Group Number Insured Name Patient Relationship to Insured Coverage Start Date Coverage End Date [place] Medicaid Standard [address] [place] [address] [id number] Ry Helm Self - patient is the insured 5 [place] Medicaid C3 [address] [place], [place] [id number] Ry Helm Self - patient is the insured 5
--- OUTSIDE RECORDS SUMMARY | 2024-12-07 10:03 | XMS_ITS | Clinical Summary ---
Author Organization [facility] Facility Address [address] [place] [address] Care Team Providers Care Supervisor Mail Carriers Name Role Phone Linda Hidalgo MD Primary Care Provider [phone] Allergies No known active allergies Medications metFORMIN [...] CCA One Care Dual SNP (A2793) [place] [id number] [employer] One Care Dual SNP (A2793) Care Teams Supervisor Mail Carriers Relationship Specialty Start Date End Date Linda Hidalgo MD [address] [place], [place] PCP - General Internal Medicine 08/17/22
== END 2024-12-07 09:49 | disposition home or self-care (01) ==
LOC: HO.ENCR 09:32
PROVIDERS: PCP Internal Medicine; Visit Provider Internal Medicine Endocrinology, Diabetes & Metabolism
DX: E55.9 Vitamin D deficiency, unspecified (principal); E21.3 Hyperparathyroidism, unspecified
CPT/HCPCS: 99213

== ENCOUNTER → 2024-12-07 09:31 | Outpatient (BNVA) | payer OTHER, SELFPAY | PROVIDERS: PCP Internal Medicine; Visit Provider Internal Medicine Endocrinology, Diabetes & Metabolism | DX: Z71.2 Person consulting for explanation of examination or test findings (principal); E21.3 Hyperparathyroidism, unspecified; E55.9 Vitamin D deficiency, unspecified | CPT/HCPCS: 99212 ==

== ENCOUNTER 2024-12-08 08:19 | Outpatient (REF) | payer OTHER, SELFPAY ==
--- NOTE | ~2024-12-08 | US_ITS ---
CLINICAL HISTORY: R80.9 - Proteinuria, unspecified Renal ultrasound Comparison: None available Findings: The kidneys are normal in echotexture bilaterally. No hydronephrosis. The right kidney is normal in size, measuring 10.7cm in length. The left kidney is normal in size, measuring 10.9cm in length. Hypertrophied column of Roc, normal variant. Impression: Normal retroperitoneal ultrasound. This document has been electronically signed by: Natasha Jacobo MD on 12/08/2024 14:19:42
--- OUTSIDE RECORDS SUMMARY | 2024-12-08 08:28 | XMS_ITS | Clinical Summary ---
Author Organization [facility] Facility Address [address] [place] [address] Care Team Providers Care Curing Press Operator Name Role Phone Linda Hidalgo MD Primary Care Provider [phone] Allergies No known active allergies Medications metFORMIN [...] CCA One Care Dual SNP (A2793) [place] [id number] CCA One Care Dual SNP (A2793) Care Teams Curing Press Operator Relationship Specialty Start Date End Date Linda Hidalgo MD [address] [place], [place] PCP - General Internal Medicine 08/17/22
--- OUTSIDE RECORDS SUMMARY | 2024-12-08 08:28 | XMS_ITS | Patient Health Record ---
Author Organization [facility] Address [address] [place], [place] [phone] Care Team Providers Care Glue Size Machine Operator Name Role Phone NO, PCP Primary Care Provider Lola Gilmore Unavailable Reason For Referral No Information Encounters Encounter Location Date Provider Diagnosis [facility] [address] [place] [id number] 05/08/2024 Lola Gilmore Plan Of Treatment No Information Insurance Providers Payer Name Payer Address Payer Phone Subscriber Number Group Number Insured Name Patient Relationship to Insured Coverage Start Date Coverage End Date [place] Medicaid Standard [address] [place] [address] [id number] Ry Helm Self - patient is the insured [place] Medicaid C3 [address] [place], [place] [id number] Ry Helm Self - patient is the insured 5
== END 2024-12-08 08:20 | disposition home or self-care (01) ==
LOC: HO.US 08:19
PROVIDERS: PCP Internal Medicine; Visit Provider Internal Medicine Nephrology
DX: I10 Essential (primary) hypertension (principal); R80.9 Proteinuria, unspecified
CPT/HCPCS: 76775

== ENCOUNTER → 2024-12-08 08:28 | Outpatient (BNV) | payer OTHER, SELFPAY | PROVIDERS: PCP Internal Medicine; Visit Provider Radiology Diagnostic Radiology | DX: R80.9 Proteinuria, unspecified (principal) | CPT/HCPCS: 76775 ==

== ENCOUNTER 2024-12-28 18:43 | Emergency (ER) | payer OTHER, SELFPAY ==
--- NOTE | ~2024-12-28 | XR_ITS ---
CLINICAL HISTORY: low back pain 3 views lumbar spine Comparison: CR/SR - XR LUMBAR SPINE 2-3 VIEWS - 07/03/22 16:21 EST Findings: Normal alignment. No acute fractures or dislocation. Mild lumbar degenerative change. Normal bowel gas pattern. IMPRESSION: No acute findings. This document has been electronically signed by: Martin Kam MD on 12/28/2024 22:02:06
[2024-12-28 18:44] VITALS: BP 128/75; PULSE 89; RESP 20; TEMP 37.2; O2SAT 100; BMI 30.2
--- NOTE | 2024-12-28 18:49 | ED.GENADULT ---
HPI - General Adult General Chief complaint: Back Pain/Injury Stated complaint: back pain Time Seen by Provider: 12/28/24 22:40 Source: patient Mode of arrival: ambulatory Limitations: no limitations History of Present Illness ED Provider: Dr. Ronel Baird HPI narrative: Patient comes to the emergency room complaining of lower back pain. Patient states that he has been struggling with lower back pain for several months. Patient states that now he is homeless and has been sleeping in his car for several weeks. Then, yesterday the patient was helping a friend move and was doing some heavy lifting. Today, patient complaining of worsening lower back pain. States that every so often he may feel a shooting pain going down towards his left buttocks. Patient denies any urinary incontinence/retention. Patient states that if he moves a certain way, it triggers that shock like sensation. Does not go all the way down the leg. Patient states that his friend gave him a dose of p.o. hydromorphone that did not do much for his pain. Related Data Home Medications ?Medication ?Instructions ?Recorded ?Confirmed fluocinonide 0.05 % topical cream 1 appl topical BID 01/24/23 12/07/24 hydroxyzine HCl 10 mg tablet 10 mg PO DAILY 11/20/24 12/07/24 Previous Rx's ?Medication ?Instructions ?Recorded blood [facility] Test strips) diclofenac sodium 1 % topical gel 2 g topical TID PRN pain #100 grams 04/30/23 (Arthritis Pain (diclofenac)) sumatriptan succinate 25 mg tablet 25 mg PO ONCE PRN migraine 09/25/23 headache 30 days #9 tabs blood pressure monitor #1 ea 11/22/23 lisinopril 40 mg tablet 40 mg PO DAILY 90 days #90 tabs 01/04/24 amlodipine 10 mg tablet 10 mg PO DAILY 90 days #90 tabs 02/12/24 metformin 500 mg tablet 500 mg PO BID 90 days #180 tabs 07/07/24 tamsulosin 0.4 mg capsule (Flomax) 0.4 mg PO BEDTIME #90 caps 09/08/24 Enbrel SureClick 50 mg/mL (1 mL) 50 mg subcut QWEEK #4 mL 10/15/24 subcutaneous pen injector (etanercept) baclofen 10 mg tablet 10 mg PO BID #60 tabs 10/15/24 gabapentin 100 mg capsule 100 - 300 mg (1 - 3 x 100 mg) PO 10/15/24 BEDTIME PRN pain #90 caps tramadol 50 mg tablet 50 mg PO BID pain #60 tabs 10/15/24 atorvastatin 80 mg tablet (Lipitor) 80 mg PO BEDTIME 90 days #90 tabs 10/21/24 cholecalciferol (vitamin D3) 125 125 mcg PO DAILY #30 caps 10/26/24 mcg (5,000 unit) capsule empagliflozin 10 mg tablet 10 mg PO DAILY #30 tabs 11/20/24 (Jardiance) blood-glucose meter (FreeStyle #1 ea 12/03/24 Lite Meter kit) lancets 28 gauge (FreeStyle #100 ea 12/03/24 Lancets) blood sugar diagnostic (FreeStyle #50 ea 12/11/24 Lite Strips) oxycodone 5 mg tablet 5 mg PO BID PRN pain #7 tabs 12/28/24 Allergies Allergy/AdvReac Type Severity Reaction Status Date / Time celecoxib (From CELEBREX) Allergy Mild HIVES,ITCHI Verified 12/28/24 18:50 NG,RASH Review of Systems Review of Systems: Constitutional : No Weight loss, No Fever, No Chills, No Night Sweats, No Fatigue, No Malaise ENT/Mouth : No Hearing loss, No Ear Pain, No Nasal Congestion, No Sinus Pain, No Hoarseness, No sore throat, No Rhinorrhea, No Swallowing Difficulty Eyes: No Eye Pain, No Swelling, No Redness, No Foreign Body, No Discharge, No Vision Changes Cardiovascular : No Chest Pain, No SOB, No Dyspnea on Exertion, No Orthopnea, No Edema, No Palpitations Respiratory : No Cough, No Sputum, No Wheezing, No Smoke Exposure, No Dyspnea Gastrointestinal : No Nausea, No Vomiting, No Diarrhea, No Constipation, No abdominal Pain, No Hematochezia, No Melena Genitourinary : no irregular bleeding, No Dysuria, No Urinary Frequency, No Hematuria, No Urinary Incontinence, No Urgency, No Flank Pain, No Urinary Flow Changes, No Hesitancy Musculoskeletal : Complaining of by lifting heavy objects. Myalgias, No Joint Swelling Skin : No Skin Lesions, No rash Neuro : No Weakness, No Numbness, No Paresthesias, No Loss of Consciousness, No Dizziness, No Headache Psych : No Anxiety/Panic, No Depression, No SI/HI/AH/VH, No Social Issues, Heme/Lymph: No Bruising, No Bleeding,No Lymphadenopathy Endocrine : No Polyuria, No Polydipsia, No Temperature Intolerance [facility] Past Medical History Medical History Hyperparathyroidism Long-term use of immunosuppressant medication History of substance abuse Right arm pain Moderate recurrent major depression Diabetes mellitus Erectile dysfunction Hypovitaminosis D Depression Migraines Essential hypertension Non-radiographic axial spondyloarthritis Surgical History Hx of colonoscopy History of orthopedic surgery History of carpal tunnel release History of arthroscopy of left shoulder History of appendectomy History of nasal surgery History of eye surgery History of hand surgery Family History Family History Father Stroke Mother Hypertension Arthritis Osteoporosis Depression with anxiety Lung cancer Brother Cognitive developmental delay Psychiatric problem Mental health disorder Social History Social History Housing: Homeless Alcohol intake: former Patient Tobacco Use Status: Former Tobacco user Tobacco use type: Cigarette Cigarettes Per Day: 20 Years Smoked: 20 Smoked in Last 30 Days: No e-Cigarette/Vaping Use: Never Used Second Hand Smoke Exposure: No Use of substances other than those prescribed or required for medical reasons: No Advance Directives: No Advance Directives Information Provided: Yes Do you have a plan to hurt others: No Plan service: No Current occupational status: retired Cognitive needs: No Hearing needs: No Vision needs: Yes (Glasses) Physical Exam ED Exam Exam: Appearance: Alert. Oriented X3. No acute distress. Eyes: Pupils equal, round and reactive to light. ENT: Pharynx normal. Neck: Normal inspection. Neck supple. No lymph nodes noted. No crepitus CVS: Normal heart rate and rhythm. Pulses normal. Normal S1 and S2 Respiratory: No respiratory distress. Breath sounds normal. No Wheezing. No rales Abdomen: Soft and nontender. No rigidity. No distention. Skin: Skin warm and dry. Normal skin color. Normal skin turgor. Back: No pain to palpation in the cervical thoracic or spine area. Pain to palpation over the paraspinal muscles bilaterally, pain worsened with a straight leg raise test on the left side. Extremities: No lower extremity edema. No Lacerations. No Rash Neuro: Oriented X 3. No motor deficit. No sensory deficit. Moving all extremities. No slurred speech. CN 2 through 12 grossly intact Psych: calm, cooperative, normal affect Vital Signs: Vital Signs - 24 hr 12/28/24 18:44 12/28/24 20:57 12/28/24 23:24 Temperature 98.9 F 98.1 F 97.5 F Pulse Rate 89 70 60 Respiratory Rate 20 17 17 Blood Pressure 128/75 142/68 H 135/65 Pulse Oximetry 100 93 94 Oxygen Delivery Method Room Air Room Air Room Air BMI result Body Mass Index 30.2 Course Course Course Narrative: Rapid medical examination performed in triage by Marilou Burdick PA-C. Patient is a 59 year old assigned male at presenting to the emergency department with low back pain. Patient states that he has been having the pain for awhile and to help the pain today he took oxycodne, morphine, and baclofen but none of that helped. Detailed physical exam and review of systems are deferred to the escrow secretary. Patient placed back in the waiting room pending room availability. Medical Decision Making Medical Decision Making MDM Narrative: I discussed the physical exam with the patient, patient likely has sciatica versus herniated disc. Discussed with the patient that he will eventually need physical therapy. In the emergency room, patient was given IM ketorolac, dexamethasone and p.o. oxycodone. I discussed with the patient that he will like he needs physical therapy. Also, I discussed with the patient that I can not give him a long-term prescription for narcotics. Patient agrees with plan. Patient states that he will talk to his PCP tomorrow about starting physical therapy. Patient is able to ambulate, no weakness in lower extremities, no bowel/bladder incontinence or retention. Patient denies IV drug use. Overall, cauda equina is not suspected Differential Diagnosis Differential Diagnoses: The differential diagnosis associated with the presentation includes (Herniated disc versus sciatica versus contusion versus musculoskeletal spasms) Discharge Plan Discharge Clinical Impression: Sciatica Patient Disposition: Home, Self-Care Instructions: Sciatica (ED), Lower Back Exercises (ED) Additional Instructions: Please follow-up with your primary care physician tomorrow. If you have any worsening or new symptoms, please return to the emergency room or call 911 Prescriptions: New oxycodone 5 mg tablet 5 mg PO BID PRN (Reason: pain) Qty: 7 0RF Rx Instructions: Partial Fill upon patient request. No Action (DME) blood pressure monitor Kit See Rx Instructions .Route Qty: 1 0RF Rx Instructions: As directed lisinopril 40 mg tablet 40 mg PO DAILY 90 Days Qty: 90 1RF metformin 500 mg tablet 500 mg PO BID 90 Days Qty: 180 2RF cholecalciferol (vitamin D3) 125 mcg (5,000 unit) capsule 125 mcg PO DAILY Qty: 30 5RF (DME) blood-glucose meter [FreeStyle Lite Meter] Kit See Rx Instructions .Route Qty: 1 0RF Rx Instructions: use once a day as directed (DME) lancets [FreeStyle Lancets] 28 gauge misc See Rx Instructions .ROUTE .MEDSUPPLY Qty: 100 11RF Rx Instructions: use 1 lancet once a day (DME) FreeStyle Lite Strips Strip See Rx Instructions .Route Qty: 50 0RF Rx Instructions: use one strip once a day as directed sumatriptan succinate 25 mg tablet 25 mg PO ONCE PRN (Reason: migraine headache) 30 Days Qty: 9 6RF (DME) FreeStyle Test Strip See Rx Instructions .ROUTE .MEDSUPPLY Qty: 50 11RF Rx Instructions: used 1 test strip once a day fluocinonide 0.05 % cream 1 appl topical BID diclofenac sodium [Arthritis Pain (diclofenac)] 1 % gel 2 g topical TID PRN (Reason: pain) Qty: 100 3RF Rx Instructions: apply to affected joints 1 to 2 times daily amlodipine 10 mg tablet 10 mg PO DAILY 90 Days Qty: 90 1RF tamsulosin [Flomax] 0.4 mg capsule 0.4 mg PO BEDTIME Qty: 90 3RF Enbrel SureClick 50 mg/mL (1 mL) pen injector 50 mg subcut QWEEK Qty: 4 5RF baclofen 10 mg tablet 10 mg PO BID Qty: 60 5RF gabapentin 100 mg capsule 100 - 300 mg PO BEDTIME PRN (Reason: pain) Qty: 90 5RF tramadol 50 mg tablet 50 mg PO BID Qty: 60 5RF hydroxyzine HCl 10 mg tablet 10 mg PO DAILY atorvastatin [Lipitor] 80 mg tablet 80 mg PO BEDTIME 90 Days Qty: 90 1RF Jardiance 10 mg tablet 10 mg PO DAILY Qty: 30 3RF Print Language: Swedish
--- OUTSIDE RECORDS SUMMARY | 2024-12-28 20:50 | XMS_ITS | Clinical Summary ---
Author Organization [facility] Facility Address [address] [place] [id number] Care Team Providers Care Front Desk Worker Name Role Phone Linda Hidalgo MD Primary Care Provider [phone] Allergies No known active allergies Medications metFORMIN [...] [facility] One Care Dual SNP (A2793) [place] [id number] [employer] One Care Dual SNP (A2793) Care Teams Front Desk Worker Relationship Specialty Start Date End Date Linda Hidalgo MD [address] [place], [place] PCP - General Internal Medicine 08/17/22
--- OUTSIDE RECORDS SUMMARY | 2024-12-28 20:50 | XMS_ITS | Encounter Summary ---
Author Organization [facility] Address [address] [place] [address] Care Team Providers Care Pump Oiler Name Role Phone Unavailable Primary Care Provider Unavailabl e Reason for Visit * Reason Comments [facility] Recovery Supports Encounter Details Date Type Department Care Team (Late st Contact Info) Description 12/24/2024 Patient Outreach [facility] [address] [place] [address] Cirilo Lees Recovery Supports Social History Tobacco Use Types Packs/Day Years Used Date Smoking Tobacco: Never Assessed Sex and Gender Information Value Date Recorded Sex Assigned at Male 03/05/2022 10:16 AM EDT Legal Sex Male 10:16 AM EDT Gender Identity Not on file Sexual Orientation Not on file documented as of this encounter Progress Notes * Cirilo Lees - 12/24/2024 3:27 PM EDT I met with Ry today. Setting: in person at [facility] Recovery Wellness Goals worked on: Physical Health/Mental Health Social Stability Spiritual Wellness Action taken/next steps: Attended recovery support group Contingency management Additional comments: Cirilo Lees documented in this encounter Plan of Treatment Not on file documented as of this encounter Visit Diagnoses Not on filedocumented in this encounter
--- OUTSIDE RECORDS SUMMARY | 2024-12-28 20:50 | XMS_ITS | Clinical Summary ---
Author Organization [employer] Address [address] [address] [facility] [address] [place] [address] Care Team Providers Care Adoption Services Manager Name Role Phone Unavailable Primary Care Provider Unavailabl e Encounters Date Type Department Care Team Description 12/24/2024 Patient Outreach [facility] [address] [place] [address] Cirilo Lees Recovery Supports from Last 3 Months Social History Tobacco Use Types Packs/Day Years Used Date Smoking Tobacco: Never Assessed Sex and Gender Information Value Date Recorded Sex Assigned at Male 03/05/2022 10:16 AM EDT Legal Sex Male 10:16 AM EDT Gender Identity Not on file Sexual Orientation Not on file Plan of Treatment Health Maintenance Due Date Last Done Comments CT Colonography 1965 Colonoscopy 1965 Colorectal Cancer Screening 1965 Depression Screening 1965 FIT DNA/Cologuard 1965 FIT 1965 FOBT 1965 Lipid Panel 1965 Sigmoidoscopy 1965 Disability Screening 1965 Alcohol/Substance Use Screening 1977 Tobacco Screening 1977 DTaP/Tdap/Td Vaccines (1 - Tdap) 02/02/1984 Hepatitis B Vaccines (1 of 3 - 19+ 3-dose series) 02/02/1984 Pneumococcal Vaccine: 50+ Ye ars (1 of 1 - PCV) 2015 Zoster Vaccines (1 of 2) 2015 COVID-19 Vaccine ( - 2023-2 5 season) 2024 Influenza Vaccine (#1) 2025 RSV Patients and Pa tients Aged 60 years or older (1 - 1-dose 75+ series) 02/02/2040 HIB Vaccines Aged Out No longer eligi ble based on patient's age to complete this topic HPV Vaccines Aged Out No longer eligi ble based on patient's age to complete this topic Hepatitis A Vaccines Aged Out No long er eligible based on patient's age to complete this topic IPV Vaccines Aged Out No longer eligi ble based on patient's age to complete this topic Meningococcal B Vaccine Aged Out No l onger eligible based on patient's age to complete this topic Meningococcal Vaccine Aged Out No dejuan taryn eligible based on patient's age to complete this topic RSV under 20 months Aged Out No longe r eligible based on patient's age to complete this topic Rotavirus Vaccines Aged Out No longer eligible based on patient's age to complete this topic
--- OUTSIDE RECORDS SUMMARY | 2024-12-28 20:50 | XMS_ITS | Patient Health Record ---
Author Organization [facility] Address [address] [place], [place] [id number] Care Team Providers Care Compliance Quality Performance Analyst Name Role Phone NO, PCP Primary Care Provider Lola Gilmore Unavailable Reason For Referral No Information Encounters Encounter Location Date Provider Diagnosis [facility] [address] [place] [phone] 05/08/2024 Lola Gilmore Plan Of Treatment No Information Insurance Providers Payer Name Payer Address Payer Phone Subscriber Number Group Number Insured Name Patient Relationship to Insured Coverage Start Date Coverage End Date [place] [address] [place] [address] [id number] Ry Helm Self - patient is the insured [place] C3 [address] [place], [place] [id number] Ry Helm Self - patient is the insured 5
[2024-12-28 20:57] VITALS: BP 142/68; PULSE 70; RESP 17; TEMP 36.7; O2SAT 93
--- NOTE | 2024-12-28 22:08 | PC.NURSE ---
Patient still reporting pain, attempted to reposition for non pharm. intervention. Patient awaiting a provider to prescribe medication. Asked patient if needed anything else, replied no. Patient reports he started a job within the last couple of weeks for [employer]. Pt stating he sits a lot more now, and reports helping a friend move, which made his pain worse and radiate down his leg. 8/10 pain. Assured patient once a provider assigns their care to him, they will address all pain concerns how they deem approriate. Patient denies any incontinence or changes in urine/bowel.
[2024-12-28 23:24] VITALS: BP 135/65; PULSE 60; RESP 17; TEMP 36.4; O2SAT 94
[2024-12-28] MEDS: oxyCODONE HCl Immed Release 5 MG TABLET PO (23:40)
[2024-12-28 23:54] VITALS: BP 135/65; PULSE 60; RESP 17; TEMP 36.4; O2SAT 94
== END 2024-12-28 23:57 | disposition home or self-care (01) ==
PROVIDERS: Emergency Provider Emergency Medicine; PCP Internal Medicine
DX: M54.50 Low back pain, unspecified (principal); Z79.899 Other long term (current) drug therapy; Z59.00 Homelessness unspecified
CPT/HCPCS: 72100; 96372; 99284; J1100; J1885

== ENCOUNTER → 2024-12-28 18:55 | Outpatient (BNV) | payer OTHER, SELFPAY | PROVIDERS: Emergency Provider Emergency Medicine; PCP Internal Medicine; Visit Provider Student in an Organized Health Care Education/Training Program | DX: M54.50 Low back pain, unspecified (principal) | CPT/HCPCS: 72100 ==

== ENCOUNTER 2025-01-19 08:03 | Outpatient (REF) | payer OTHER, SELFPAY ==
--- OUTSIDE RECORDS SUMMARY | 2025-01-19 09:04 | XMS_ITS | Clinical Summary ---
Author Organization [facility] Facility Address [address] [place] [address] Care Team Providers Care Guide Rail Cleaner Name Role Phone Linda Hidalgo MD Primary Care Provider [phone] Allergies No known active allergies Medications metFORMIN [...] [facility] One Care Dual SNP (A2793) [place] [id number] [employer] One Care Dual SNP (A2793) Care Teams Guide Rail Cleaner Relationship Specialty Start Date End Date Linda Hidalgo MD [address] [place], [place] PCP - General Internal Medicine 08/17/22
--- OUTSIDE RECORDS SUMMARY | 2025-01-19 09:04 | XMS_ITS | Patient Health Record ---
Author Organization [facility] Address [address] [place] [address] Care Team Providers Care Disaster Recovery Specialist Name Role Phone NO, PCP Primary Care Provider Lola Gilmore Unavailable Reason For Referral No Information Encounters Encounter Location Date Provider Diagnosis [facility] [address] [place] [id number] 05/08/2024 Lola Gilmore Plan Of Treatment No Information Insurance Providers Payer Name Payer Address Payer Phone Subscriber Number Group Number Insured Name Patient Relationship to Insured Coverage Start Date Coverage End Date [place] [address] [place] [phone] [id number] Ry Helm Self - patient is the insured [place] C3 [address] [place], [place] [id number] Ry Helm Self - patient is the insured 5
--- OUTSIDE RECORDS SUMMARY | 2025-01-19 09:04 | XMS_ITS | Clinical Summary ---
Author Organization [employer] Address [address] [facility] [address] [place] [address] Care Team Providers Care Oracle Hyperion Consultant Name Role Phone Unavailable Primary Care Provider Unavailabl e Encounters Date Type Department Care Team Description 12/24/2024 Patient Outreach [facility] [address] [place] [address] Cirilo Lees Recovery Supports from Last 3 [...] COVID-19 Vaccine ( - 2023-2 5 season) 2025 Influenza Vaccine (#1) 2025 RSV Patients and [...]
[2025-01-19 10:05] LABS: Albumin Level 4.8 g/dL (3.5-5.0); Calcium 9.5 mg/dL (8.4-10.2)
[2025-01-19 10:12] LABS: Parathyroid Hormone Intact 65.1 pg/mL (8.7-77.1)
[2025-01-19 10:15] LABS: HBc Num1 0.03 S/CO (0.00-0.79); HBsAGNum1 0.44 S/CO (0.00-0.99); Hepatitis B Surface Antigen Negative (Negative)
[2025-01-19 10:45] LABS: Protein/Creatinine Ratio, Ur 0.10 (<0.2); Total Protein Urine Random 10 mg/dL (<12)
[2025-01-19 13:08] LABS: Creatinine, mg/dL 82.22
[2025-01-19 14:11] LABS: Total Volume 24 Hour Urine 2000 mL
[2025-01-21 10:04] LABS: Neutrophil Cyto Ab Screen NEGATIVE (NEGATIVE)
[2025-01-21 20:53] LABS: Anti Glomerular Basement Memb <1.0 AI; Proteinase 3 PR3 Antibodies <1.0 AI
[2025-01-22 20:03] LABS: Calcium/Creatinine Ratio 173 mg/g creat (30-210); Creatinine 24Hr Urine 1.60 g/24 h (0.50-2.15)
[2025-01-26 13:39] LABS: Phospholipase A2 IgG ELISA <4 RU/mL; Phospholipase A2 IgG IFA NEGATIVE (NEGATIVE)
== END 2025-01-19 08:04 | disposition home or self-care (01) ==
LOC: HO.LAB 08:03
PROVIDERS: Absent Provider Internal Medicine Nephrology; PCP Internal Medicine; Visit Provider Internal Medicine Endocrinology, Diabetes & Metabolism
DX: Z01.84 Encounter for antibody response examination (principal); I10 Essential (primary) hypertension; E55.9 Vitamin D deficiency, unspecified; R80.9 Proteinuria, unspecified; E21.3 Hyperparathyroidism, unspecified
CPT/HCPCS: 36415; 82040; 82306; 82310; 82340; 82570; 82784; 83520; 83970; 84156; 86021; 86036; 86160; 86225; 86255; 86334; 86335; 86704; 87340

== ENCOUNTER 2025-01-20 12:03 | Outpatient (AMB) | payer OTHER, SELFPAY ==
--- NOTE | 2025-01-20 12:06 | HO.NEPHOV_ITS ---
Vital Signs 01/20/25 12:07 Height 5 ft 1 in Weight 161 lb BMI 30.4 BP 114/60 Blood Pressure Location Rt brachial Position Sitting Pulse 72 Pulse Source Pulse Oximeter Pulse Oximetry (%) 94 Oxygen Delivery Method Room Air Intake Visit Reasons: 2 MO FU-Conf Hydrogen Plant Operations Manager Required: Yes Hydrogen Plant Operations Manager Language: Back Tender Pulp Drier Services: Hydrogen Plant Operations Manager Present Hydrogen Plant Operations Manager Name: Delphine [id number] Information Interpreted: clinical only Accompanied by: Self / Same As Patient Allergies celecoxib (From CELEBREX) Allergy (Mild, Verified 01/20/25 12:07) HIVES,ITCHING,RASH HPI Comments Details: I had the privilege of seeing Ry in follow up for proteinuria. He is 59 years and has been diabetic for sometime. His last A1c was 8.0. He does not check his blood sugar at home. He denies retinopathy but is known to have hypertension. He is HLA B27 positive and was treated with Methotrexate in the past . It was changed to Enbrel when he developed transminitis.He had high PSA and had undergone prostatic biopsy as well as MRI of prostate. He denies CAD, CHF, CVA , PAD, hematuria, carotid stenosis, edema, hematuria, dysuria, epistaxis, photosensitivity, sensori neural deafness. He denied hepatitis,HIV, active drug use or excess NSAID intake ( has previous H/O cocaine use, pills and glue use). His last serum creatinine was stable [facility] Medical History Hyperparathyroidism Long-term use of immunosuppressant medication History of substance abuse Right arm pain Moderate recurrent major depression Diabetes mellitus Erectile dysfunction Hypovitaminosis D Depression Migraines Essential hypertension Non-radiographic axial spondyloarthritis Surgical History Hx of colonoscopy History of orthopedic surgery History of carpal tunnel release History of arthroscopy of left shoulder History of appendectomy History of nasal surgery History of eye surgery History of hand surgery Family History Father Stroke Mother Hypertension Arthritis Osteoporosis Depression with anxiety Lung cancer Brother Cognitive developmental delay Psychiatric problem Mental health disorder Social History Housing: Homeless Alcohol intake: former Patient Tobacco Use Status: Former Tobacco user Tobacco use type: Cigarette Cigarettes Per Day: 20 Years Smoked: 20 e-Cigarette/Vaping Use: Never Used Second Hand Smoke Exposure: No service: No Current occupational status: retired Cognitive needs: No Hearing needs: No Vision needs: Yes (Glasses) Review of Systems Const All systems reviewed & are unremarkable except as noted in HPI and below Physical Exam Vital Signs: Last Vital Signs Pulse 72 01/20/25 12:07 BP 114/60 01/20/25 12:07 Pulse Ox 94 01/20/25 12:07 Oxygen Delivery Method Room Air 01/20/25 12:07 BMI result Body Mass Index 30.4 Const General: comfortable and no acute distress Orientation/consciousness: patient oriented x3 HEENT Head: Yes normocephalic Mouth: Normal oral and palatal mucosa present Eyes EOM: EOMs intact bilaterally Neck Neck: Yes supple Resp Auscultation: clear to auscultation bilaterally Cardio Jugular venous distension: no JVD Rate: regular rate GI Palpation (GI): Soft to palpation Auscultation: normal bowel sounds General: Yes no CVA tenderness Back/Spine/Pelvis Back: no CVA tenderness Skin General skin exam: no rashes or lesions noted Neuro General: patient oriented x3 and moves all extremities Extrem General: Yes no pedal edema Results Reviewed Nephrology Results: Calcium, (8.4-10.2) 9.5 mg/dL Δ 01/19/25 PTH Intact, (8.7-77.1) 65.1 pg/mL 01/19/25 Urine Creatinine 103.87 mg/dL 01/19/25 Protein/Creatinin Ratio, (<0.2) 0.10 01/19/25 Renal US 12/08/24 Assessment & Plan Assessment & Plan (1) Microalbuminuria: Code(s): R80.9 - Proteinuria, unspecified Category: Medical (2) Hypertension: Code(s): I10 - Essential (primary) hypertension Category: Medical Qualifiers: Hypertension type: primary hypertension Qualified Code(s): I10 - Essential (primary) hypertension Plan 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 His last HbA1c was 8.0. He denies retinopathy or neuropathy. He is on ACEI as well as Amlodipine. His BP needs to maintained @ less than 130/80 mm of Hg. He can continue Jardiance 10 mg daily which I may increase to 25 mg at next visit . He should maintain good hydration and avoid NSAID's. There is no indication for any renal biopsy now. Further management is pending evolving data Orders: Orders Protein Creatinine Ratio, Ur 6 Months I10 - Essential (primary) hypertension, R80.9 - Proteinuria, unspecified Creatinine 6 Months I10 - Essential (primary) hypertension, R80.9 - Proteinuria, unspecified Blood Urea Nitrogen 6 Months I10 - Essential (primary) hypertension, R80.9 - Proteinuria, unspecified Hemoglobin A1c 6 Months I10 - Essential (primary) hypertension, R80.9 - Proteinuria, unspecified Electrolytes 6 Months I10 - Essential (primary) hypertension, R80.9 - Proteinuria, unspecified Coding Level of Care Code Est Pt Level 4 (13395) Diagnoses Microalbuminuria R80.9 Primary hypertension I10 Hypertension type: primary hypertension
[2025-01-20 12:07] VITALS: BP 114/60; PULSE 72; O2SAT 94; BMI 30.4
--- OUTSIDE RECORDS SUMMARY | 2025-01-20 15:33 | XMS_ITS | Clinical Summary ---
Author Organization [facility] Facility Address [address] [place] [id number] Care Team Providers Care Marker Assembler Name Role Phone Linda Hidalgo MD Primary Care Provider [phone] Allergies No known active allergies Medications metFORMIN [...] Most Recently Relevant to Health Maintenance Insurance * Guarantor: Ramona Ry Charly Torreso Account Type Relation to Patient Date of Phone Billing Address Personal/Family Self 1965 [address] [place] [address] [employer] ([id number]) [place] [id number] * Guarantor: Ry Greene Orr Account Type Relation to Patient Date of Phone Billing Address Personal/Family Self 1965 [address] [place] [address] [employer] ([id number]) Care Teams Marker Assembler Relationship Specialty Start Date End Date Linda Hidalgo MD [address] [place], [place] PCP - General Internal Medicine 08/17/22
--- OUTSIDE RECORDS SUMMARY | 2025-01-20 15:33 | XMS_ITS | Clinical Summary ---
Author Organization [employer] Address [address] [facility] [address] [place] [address] Care Team Providers Care Director Of Cloud Services Name Role Phone Unavailable Primary Care Provider Unavailabl e Encounters Date Type Department Care Team Description 12/24/2024 Patient Outreach [facility] [address] [place] [address] Cirilo Lees Recovery Supports from Last 3 [...]
--- OUTSIDE RECORDS SUMMARY | 2025-01-20 15:33 | XMS_ITS | Patient Health Record ---
Author Organization [facility] Address [address] [place] [address] Care Team Providers Care Advertising Layout Worker Name Role Phone NO, PCP Primary Care Provider [phone] Lola Gilmore Unavailable [phone] Reason For Referral No Information Encounters Encounter Location Date Provider Diagnosis [facility] [address] [place] [id number] 05/08/2024 Lola Gilmore Plan Of Treatment No Information Insurance Providers Payer Name Payer Address Payer Phone Subscriber Number Group Number Insured Name Patient Relationship to Insured Coverage Start Date Coverage End Date [place] [address] [place] [address] [id number] [phone] [id number] Ry Helm Self - patient is the insured [place] C3 [address] [place], [place] [id number] Ry Helm Self - patient is the insured 5
== END 2025-01-20 12:15 | disposition home or self-care (01) ==
LOC: HO.HKA 12:04
PROVIDERS: PCP Internal Medicine; Visit Provider Internal Medicine Nephrology
DX: R80.9 Proteinuria, unspecified (principal); I10 Essential (primary) hypertension
CPT/HCPCS: 99214

== ENCOUNTER → 2025-01-20 12:03 | Outpatient (BNVA) | payer OTHER, SELFPAY | PROVIDERS: PCP Internal Medicine; Visit Provider Internal Medicine Nephrology | DX: I10 Essential (primary) hypertension (principal); R80.9 Proteinuria, unspecified | CPT/HCPCS: 99212 ==

== ENCOUNTER 2025-04-17 08:47 | Outpatient (REF) | payer OTHER, SELFPAY ==
--- OUTSIDE RECORDS SUMMARY | 2025-04-17 08:52 | XMS_ITS | Clinical Summary ---
Author Organization [employer] Address [address] [facility] [address] [place] [address] Care Team Providers Care Penology Teacher Name Role Phone Unavailable Primary Care Provider Unavailabl e Social History Tobacco Use Types Packs/Day Years [...] 1977 DTaP/Tdap/Td Vaccines (1 - Tdap) 02/02/1984 Pneumococcal Vaccine: 50+ Ye ars (1 of 1 - PCV) 2015 Zoster Vaccines (1 of 2) 2015 COVID-19 Vaccine (1 - 2024-2 6 season) 2025 Influenza Vaccine (#1) 2025 RSV [...] patient's age to complete this topic Hepatitis B Vaccines Aged Out No long er eligible [...]
--- OUTSIDE RECORDS SUMMARY | 2025-04-17 08:52 | XMS_ITS | Patient Health Record ---
Author Organization [facility] Address [address] [place] [address] Care Team Providers Care Documentation Analyst Name Role Phone NO, PCP Primary Care Provider Lola Gilmore Unavailable Reason For Referral No Information Encounters Encounter Location Date Provider Diagnosis [facility] [address] [place] [id number] 05/08/2024 Lola Gilmore Plan Of Treatment No Information Insurance Providers Payer Name Payer Address Payer Phone Subscriber Number Group Number Insured Name Patient Relationship to Insured Coverage Start Date Coverage End Date [place] [address] [place] [id number] [phone] [id number] Ry Helm Self - patient is the insured 5 [place] C3 [address] [place], [place] [id number] Ry Helm Self - patient is the insured 5
[2025-04-17 11:15] LABS: Prostate Specific Antigen 4.92 ng/mL (<0.05-4.0)
== END 2025-04-17 08:48 | disposition home or self-care (01) ==
LOC: HO.LAB 08:47
PROVIDERS: PCP Internal Medicine; Visit Provider Urology
DX: R97.20 Elevated prostate specific antigen [PSA] (principal); Z12.5 Encounter for screening for malignant neoplasm of prostate
CPT/HCPCS: 36415; 84153